=== PATIENT | female | born 1950 | race African-American/Black ===

== ENCOUNTER → 2016-06-04 | Outpatient (CLI) | payer MEDICARE, BC | LOC: WI 08:00 | PROVIDERS: ATTEND Internal Medicine | DX: Z12.31 Encounter for screening mammogram for malignant neoplasm of breast (principal); M81.0 Age-related osteoporosis without current pathological fracture | CPT/HCPCS: 77067; G0202 ==

== ENCOUNTER 2016-08-24 01:34 | Emergency (ER) | payer MEDICARE, BC ==
[2016-08-24] MEDS ORDERED: TRAMADOL HCL 50 MG TABLET PO ONE (03:42)
--- NOTE | 2016-08-24 03:45 | ER Document Report ---
ED General - General Chief Complaint: Leg Pain Stated Complaint: LEFT LEG PAIN Time Seen by Provider: 08/24/16 03:30 Notes: It is a 66-year-old female presents with complaint of pain over left norwood. She says that she has had her leg several times. She does say she twisted her knee and had some pain in her knee but this is improving. She says she then hit her left norwood she has had worsening pain over her left norwood. She does have hypertension. She does take her medications. She is on lisinopril and hydrochlorothiazide. She says whenever she has pain or comes to the doctor her blood pressure goes very high and this is not uncommon for her. She denies any chest pain or shortness of breath. She denies history of DVT. She does admit that she does have some pain behind her knee which is fairly new. No oher complaints at this time. TRAVEL OUTSIDE OF THE [place] IN LAST 30 DAYS: No - Related Data Allergies/Adverse Reactions: acesulfame [Acesulfame] Allergy (Severe, Verified 05/15/15 15:34) rapid heartbeat, extreme high blood pressure caffeine [Caffeine] Allergy (Severe, Verified 05/15/15 15:29) extreme high blood pressure, rapid heartbeat Penicillins Allergy (Severe, Verified 05/15/15 15:20) high fever, blister at injection site soy [Soy] Allergy (Severe, Verified 05/15/15 15:29) extreme high blood pressure, rapid heart rate Sulfa (Sulfonamide Antibiotics) Allergy (Severe, Verified 05/15/15 15:20) extreme high blood pressure, rapid heartbeat Past Medical History - Social History Smoking Status: Never Smoker Frequency of alcohol use: None Drug Abuse: None Family History: Reviewed & Not Pertinent Patient has suicidal ideation: No Patient has homicidal ideation: No - Past Medical History Cardiac Medical History: Reports: Hx Atrial Fibrillation, Hx Hypertension Denies: Hx Coronary Artery Disease, Hx Heart Attack Pulmonary Medical History: Denies: Hx Asthma, Hx Bronchitis, Hx COPD, Hx Pneumonia Neurological Medical History: Denies: Hx Cerebrovascular Accident, Hx Seizures Endocrine Medical History: Reports: Hx Diabetes Mellitus Type 2 Renal/ Medical History: Denies: Hx Peritoneal Dialysis Musculoskeltal Medical History: Denies Hx Arthritis Past Surgical History: Reports: Hx Hysterectomy, Hx Orthopedic Surgery - Immunizations Hx Diphtheria, Pertussis, Tetanus Vaccination: Yes - feb 2015 Hx Pneumococcal Vaccination: 02/14/15 Review of Systems - Review of Systems Notes: My Normal Review Basic REVIEW OF SYSTEMS: CONSTITUTIONAL : Denies fever, chills, or sweats. Denies recent illness. CARDIOVASCULAR: Denies chest pain. RESPIRATORY: Denies cough, cold, or chest congestion. Denies shortness of breath, difficulty breathing, or wheezing. MUSCULOSKELETAL: Left leg pain. SKIN: Denies rash or skin lesions. NEUROLOGICAL: Denies altered mental status or loss of consciousness. Denies headache. Denies weakness or paralysis or loss of use of either side. Denies problems with gait or speech. Denies sensory or motor loss. ALL OTHER SYSTEMS REVIEWED AND NEGATIVE. Physical Exam - Vital signs Vitals: Temp Pulse Resp BP Pulse Ox 98.1 F 87 18 215/104 H 98 08/24/16 01:57 08/24/16 01:57 08/24/16 01:57 08/24/16 01:57 08/24/16 01:57 - Notes Notes: General Appearance: Well nourished, alert, cooperative, no acute distress, mild obvious discomfort. Vitals: reviewed, See vital signs table. Eyes: PERRL, EOMI, Conjuctiva clear Extremities: strength 5/5 in all extremities, good pulses in all extremities, patient over the anterior left norwood. Pain of the dorsum of the left foot. No significant swelling. Some pain to palpation in the popliteal region behind the left knee., no edema. Skin: warm, dry, appropriate color, no rash Neuro: speech clear, oriented x 3, normal affect, responds appropriately to questions. Course - Re-evaluation Re-evalutation: 08/24/16 06:23 The [place] did give the patient good pain relief. I will write her prescription for this. I did inform her to only take this if her pain is severe and not responding to other forms of [id number] pain control. At this time we are waiting for her ultrasound be performed. If it is negative she will be discharged home with pain control. If it is positive then she will most likely be placed on anticoagulation. Patient has been checked out to Dr. Wagner who will follow up on the results of her ultrasound. Dictation of this chart was performed using voice recognition software; therefore, there may be some unintended grammatical errors. - Vital Signs Vital signs: Temp Pulse Resp BP Pulse Ox 98.1 F 87 20 139/69 H 98 08/24/16 01:57 08/24/16 01:57 08/24/16 06:01 08/24/16 06:01 08/24/16 06:01 Discharge - Discharge Clinical Impression: Leg pain Qualifiers: Laterality: left Qualified Code(s): M79.605 - Pain in left leg Hypertension Qualifiers: Hypertension type: unspecified Qualified Code(s): I10 - Essential (primary) hypertension Instructions: Oral Narcotic Medication ([facility]) Additional Instructions: Please follow up with your doctor for close reevaluation. Please return to the ER immediately if you have worsening pain, fevers, or feel unwell. Prescriptions: Hydrocodone/Acetaminophen [[place] 5-325 mg Tablet] 1 tab PO Q6 PRN #14 tablet PRN Reason: Referrals: RC RIOS MD [Primary Care Provider] - Follow up in 3-5 days
--- NOTE | 2016-08-24 04:50 | RADIOLOGY REPORT (SQ) ---
EXAM DESCRIPTION: TIBIA FIBULA LEFT COMPLETED DATE/TIME: 08/24/2016 4:18 am REASON FOR STUDY: trauma COMPARISON: None. NUMBER OF VIEWS: Two views. TECHNIQUE: Two radiographic images acquired of the left tibia and fibula to include the knee and ank le in at least one projection. LIMITATIONS: None. FINDINGS: MINERALIZATION: Normal. BONES: No acute fracture or dislocation. No worrisome bone lesions. Moderate calcaneal enthesophyte s. [id number] osteoarthritis of the left knee. Small likely fragmented osteophytes of the med ial knee joint, partially imaged. SOFT TISSUES: Moderate soft tissue swelling of the left ankle. Atherosclerosis. OTHER: No other significant finding. IMPRESSION: No acute findings. Mild-moderate osteoarthritis. TECHNICAL DOCUMENTATION: JOB ID: [id number] [employer]- All Rights Reserved
--- NOTE | 2016-08-24 04:52 | RADIOLOGY REPORT (SQ) ---
EXAM DESCRIPTION: FOOT LEFT COMPLETE COMPLETED DATE/TIME: 08/24/2016 4:18 am REASON FOR STUDY: trauma COMPARISON: None. NUMBER OF VIEWS: Three views. TECHNIQUE: AP, lateral and oblique radiographic images acquired of the left foot. LIMITATIONS: None. FINDINGS: MINERALIZATION: Moderate bony demineralization. BONES: No acute fracture or dislocation. No worrisome bone lesions. Moderate calcaneal enthesophyte s. JOINTS: No effusions. SOFT TISSUES: Moderate swelling. No foreign body. Atherosclerosis. OTHER: No other significant finding. IMPRESSION: NO RADIOGRAPHIC EVIDENCE OF ACUTE INJURY. TECHNICAL DOCUMENTATION: JOB ID: [id number] [employer]- All Rights Reserved
[2016-08-24] MEDS ORDERED: HYDROCODONE/ACETAMINOPHEN 5-325 MG TABLET PO ONE ×2 (04:54→09:10)
--- NOTE | 2016-08-24 08:57 | XCELERA REPORT ---
[address] [address] Lower Extremity Venous Evaluation Name: ED FIGUEROA Age: 66 yrs Gender: Female : 1950 Patient Status: Emergency Patient Location: ER Study Date: 08/24/2016 07:54 AM Procedure: Color flow and duplex imaging of the veins of the left lower extremity as well as the right Common Femoral vein. Reason For Study: left leg Ordering Physician: ADALBERTO CARNEY Performed By: Archana Acevedo Right Sided Venous Evaluation The right common femoral vein is fully compressible. Spontaneous and phasic flow is present in the right common femoral vein. Left Sided Venous Evaluation Normal vessel filling wall to wall, compression and augmentation as well as Colour flow down to the infrageniculate veins. Interpretation Summary No duplex evidence of DVT or obstruction in the left lower extremity nor in the right Common Femoral vein. : ADALBERTO CARNEY > Diomedes Taylor
[2016-08-24 09:00] VITALS: BP 160/88
== END 2016-08-24 09:18 | disposition home or self-care (01) ==
LOC: ER 01:34
DX: M79.605 Pain in left leg (principal); I10 Essential (primary) hypertension; E11.9 Type 2 diabetes mellitus without complications; I48.91 Unspecified atrial fibrillation; Z88.2 Allergy status to sulfonamides; Z88.0 Allergy status to penicillin; Z90.710 Acquired absence of both cervix and uterus
CPT/HCPCS: 99284; 93971 ×2; 73630; 73590; A9270 ×2

== ENCOUNTER → 2017-06-24 | Outpatient (CLI) | payer MEDICARE, BC ==
--- NOTE | 2017-06-24 09:38 | WOMENS IMAGING REPORT ---
EXAM DESCRIPTION: BONE DENSITY HIP/SPINE COMPLETED DATE/TIME: 06/24/2017 9:15 am REASON FOR STUDY: OSTEOPOROSIS M81.0 AGE-RELATED OSTEOPOROSIS W/O CURRENT PATHOLOGICAL FRAC Z12.31 ENCNTR SCREEN MAMMOGRAM FOR MALIGNANT NEOPLASM OF [place] COMPARISON: 04/08/2015 TECHNIQUE: Dual-Energy X-ray Absorptiometry (DEXA) of the AP Spine and Hip. LIMITATIONS: None. FINDINGS: LUMBAR SPINE: The bone mineral density (BMD) measured from L1-L4 in the AP projection correlates with a T-score of 1.6, which is normal as defined by the World Health Organization. HIP: The bone mineral density (BMD) measured in the left hip correlates with a T-score of 0.2, previously 1.1, which is normal as defined by the World Health Organization. IMPRESSION: 1. LUMBAR SPINE: NORMAL. 2. HIP: NORMAL. COMMENT: The World Health Organization defines low BMD as follows: T-score: Normal: Greater than -1.0 Osteopenia: Between -1.0 and -2.5 Osteoporosis: Less than -2.5 without fractures Established osteoporosis: Less than -2.5 with fractures In general, you may wish to consider: Diagnosis Treatment Follow-up DEXA Normal BMD Prevention 2-3 years Osteopenia Prevention/Therapy 1-2 years Osteoporosis Therapy Yearly TECHNICAL DOCUMENTATION: JOB ID: [id number]- All Rights Reserved Reading location - IP/workstation name: Unknown
--- NOTE | 2017-06-24 10:09 | WOMENS IMAGING REPORT ---
EXAM DESCRIPTION: 3D SCREENING MAMMO BILAT COMPLETED DATE/TIME: 06/24/2017 9:15 am REASON FOR STUDY: SCREENING MAMMO M81.0 AGE-RELATED OSTEOPOROSIS W/O CURRENT PATHOLOGICAL FRAC Z12. 31 ENCNTR SCREEN MAMMOGRAM FOR MALIGNANT NEOPLASM OF [place] COMPARISON: 2015, 2016 TECHNIQUE: Standard craniocaudal and mediolateral oblique views of each breast recorded using digita l acquisition and breast tomosynthesis. LIMITATIONS: None. FINDINGS: No masses, calcifications or architectural distortion. No areas of suspicion. Read with the assistance of CAD. .[facility] - R2 Cenova Version 1.3 .[facility] - R2 Cenova Version 1.3 .[facility] - R2 Cenova Version 2.4 .[facility] - R2 Cenova Version 2.4 .[facility] - R2 [employer] Senior Manager Version 9.2 IMPRESSION: NORMAL MAMMOGRAM. BIRADS 1. BREAST DENSITY: b. There are scattered areas of fibroglandular density. BIRAD: 1 NEGATIVE RECOMMENDATION: ROUTINE SCREENING COMMENT: The patient has been notified of the results by letter per SA requirements. Additional no tification policies are in place for contacting patient with suspicious or incomplete findings. Quality ID #225: The [employer] recommends an annual screening mammogram for women aged 40 years or over. This facility utilizes a reminder system to ensure that all patients receive reminder letters, and/or direct phone calls for appointments. This includes reminders for routine scr eening mammograms, diagnostic mammograms, or other Breast Imaging Interventions when appropriate. Th is patient will be placed in the appropriate reminder system. The [employer] (ACR) has developed recommendations for screening MRI of the breast s in certain patient populations, to be used in conjunction with mammography. Breast MRI surveillanc e may be appropriate for women with more than 20% lifetime risk of developing breast cancer as deter mined by genetic testing, significant family history of the disease, or history of mantle radiation f or Hodgkins Disease. ACR Practice Guidelines 2008. DBT Technology DBT is a type of tomographic mammography. With conventional mammography, overlapping breast tissue ma y make lesions difficult to detect, even with good compression. DBT uses an x-ray tube that rotates a round the breast, taking images at different angles. These images are then combined to create thin sl ices of the breast that the radiologist can view as a 3D reconstruction. The U[employer] unit can perform full-field digital mammograms (2D imaging); or DBT (3D imaging); or both, in a combination mode that quickly performs both the mammogram and the tomosynthesis scan while the breast is still compressed. PQRS 6045F: Fluoroscopic imaging is not utilized for breast tomosynthesis. TECHNICAL DOCUMENTATION: FINDING NUMBER: (1) ASSESSMENT: (1) JOB ID: [id number] [employer]- All Rights Reserved Reading location - IP/workstation name: Unknown
== END ==
LOC: WI 08:04
PROVIDERS: ATTEND Internal Medicine
DX: Z12.31 Encounter for screening mammogram for malignant neoplasm of breast (principal); M81.0 Age-related osteoporosis without current pathological fracture
CPT/HCPCS: 77063; 77067; 77080

== ENCOUNTER → 2018-07-24 | Outpatient (CLI) | payer MEDICARE, BC ==
--- NOTE | 2018-07-24 12:21 | WOMENS IMAGING REPORT ---
EXAM DESCRIPTION: 3D SCREENING MAMMO BILAT COMPLETED DATE/TIME: 07/24/2018 9:48 am REASON FOR STUDY: Z12.31 ROUTINE 3D BILATERAL SCREENING Z12.31 ENCNTR SCREEN MAMMOGRAM FOR MALIGNAN T NEOPLASM OF [place] COMPARISON: 06/24/2017 and 06/04/2016. EXAM PARAMETERS: Views: Standard craniocaudal and mediolateral oblique views of each breast recorded using digital acquisition and breast tomosynthesis. Read with the assistance of CAD. .[facility] - [place] [employer] Version 9.2 LIMITATIONS: None. FINDINGS: No suspicious masses, suspicious calcifications or architectural distortion. No areas of c oncern. IMPRESSION: NEGATIVE MAMMOGRAM. BIRADS 1. BREAST DENSITY: b. There are scattered areas of fibroglandular density. BIRAD: ASSESSMENT: 1 NEGATIVE RECOMMENDATION: ROUTINE SCREENING COMMENT: The patient has been notified of the results by letter per MQSA requirements. Additional no tification policies are in place for contacting patient with suspicious or incomplete findings. Quality ID #225: The [employer] recommends an annual screening mammogram for women aged 40 years or over. This facility utilizes a reminder system to ensure that all patients receive reminder letters, and/or direct phone calls for appointments. This includes reminders for routine scr eening mammograms, diagnostic mammograms, or other Breast Imaging Interventions when appropriate. Th is patient will be placed in the appropriate reminder system. TECHNICAL DOCUMENTATION: FINDING NUMBER: (1) ASSESSMENT: (1) JOB ID: [id number] [employer]- All Rights Reserved Reading location - IP/workstation name: [email or web address]
== END ==
LOC: WI 09:23
PROVIDERS: ATTEND Internal Medicine
DX: Z12.31 Encounter for screening mammogram for malignant neoplasm of breast (principal)
CPT/HCPCS: 77063; 77067

== ENCOUNTER 2019-06-20 11:54 | Inpatient (IN) | payer MEDICARE, BC ==
--- NOTE | 2019-06-20 12:10 | ER Document Report ---
ED Medical Screen (RME) - General Chief Complaint: Palpitations Stated Complaint: FAST HEART RATE Time Seen by Provider: 06/20/19 12:04 Primary Care Provider: WALDO TURNER MD [Primary Care Provider] - Follow up as needed Information source: Patient Notes: Patient presents complaining of palpitations that started about an hour prior to arrival. Patient denies any cough or chest pain. Patient denies any history of abnormal heart rhythm. Patient does report occasional shortness of breath. Patient states she had gas pain to the epigastric area and took some gas pills this morning. Patient has been treated for UTI over the past 10 days and was changed to Macrobid and Flagyl yesterday. Patient does have a history of diabetes and hypertension. I have greeted and performed a rapid initial assessment of this patient. A comprehensive ED assessment and evaluation of the patient, analysis of test results and completion of the medical decision making process will be conducted by additional ED providers. TRAVEL OUTSIDE OF THE [place] IN LAST 30 DAYS: No - Related Data Allergies/Adverse Reactions: acesulfame [Acesulfame] Allergy (Severe, Verified 05/15/15 15:34) rapid heartbeat, extreme high blood pressure caffeine [Caffeine] Allergy (Severe, Verified 05/15/15 15:29) extreme high blood pressure, rapid heartbeat Penicillins Allergy (Severe, Verified 05/15/15 15:20) high fever, blister at injection site soy [Soy] Allergy (Severe, Verified 05/15/15 15:29) extreme high blood pressure, rapid heart rate Sulfa (Sulfonamide Antibiotics) Allergy (Severe, Verified 05/15/15 15:20) extreme high blood pressure, rapid heartbeat ciprofloxacin [From Cipro] Allergy (Verified 06/20/19 12:08) Past Medical History - Past Medical History Cardiac Medical History: Reports: Hx Atrial Fibrillation, Hx Hypertension Denies: Hx Coronary Artery Disease, Hx Heart Attack Pulmonary Medical History: Denies: Hx Asthma, Hx Bronchitis, Hx COPD, Hx Pneumonia Neurological Medical History: Denies: Hx Cerebrovascular Accident, Hx Seizures Endocrine Medical History: Reports: Hx Diabetes Mellitus Type 2 Renal/ Medical History: Denies: Hx Peritoneal Dialysis Musculoskeltal Medical History: Denies Hx Arthritis Past Surgical History: Reports: Hx Hysterectomy, Hx Orthopedic Surgery - Immunizations Hx Diphtheria, Pertussis, Tetanus Vaccination: Yes - feb 2015 Physical Exam - Respiratory Respiratory status: No respiratory distress. No: Labored, Tachypnea - Cardiovascular Rhythm: Irregularly irregular Heart sounds: S1 appreciated, S2 appreciated Doctor's Discharge - Discharge Referrals: WALDO TURNER MD [Primary Care Provider] - Follow up as needed
--- NOTE | 2019-06-20 12:11 | EKG REPORT ---
SEVERITY:- ABNORMAL ECG - ATRIAL FIBRILLATION WITH RAPID V-RATE REPOLARIZATION ABNORMALITY, PROB RATE RELATED : Confirmed by: Donta Carrasco MD 20-Jun-2019 12:10:08
[2019-06-20] MEDS ORDERED: DILTIAZEM HCL INJ 25 MG/5 ML VIAL IV ONE ×2 (12:31→13:26)
[2019-06-20 12:45] LABS: ABSOLUTE BASOPHILS # (AUTO) 0.1 10^3/uL (0.0-0.2); ABSOLUTE EOSINOPHILS # (AUTO) 0.1 10^3/uL (0.0-0.6); ABSOLUTE LYMPHOCYTES (AUTO) 1.9 10^3/uL (0.5-4.7); ABSOLUTE NEUT (AUTO) 4.9 10^3/uL (1.7-8.2); EOSINOPHILS % (AUTO) 1.3 % (0-6); HEMATOCRIT 32.4 % (36.0-47.0); HEMOGLOBIN 10.5 g/dL (12.0-15.5); LYMPHOCYTES % (AUTO) 23.4 % (13-45); MEAN CORPUSCULAR HEMOGLOBIN 25.7 pg (27.0-33.4); MEAN CORPUSCULAR HGB CONC 32.5 g/dL (32.0-36.0); MEAN CORPUSCULAR VOLUME 79 fl (80-97); MONOCYTES % (AUTO) 12.6 % (3-13); PLATELET COUNT 343 10^3/uL (150-450); RED CELL DISTRIBUTION WIDTH 17.1 % (11.5-14.0); SEGMENTED NEUTROPHILS % (AUTO) 61.7 % (42-78); TOTAL CELLS COUNTED % (AUTO) 100 %; WHITE BLOOD COUNT 7.9 10^3/uL (4.0-10.5)
[2019-06-20 12:47] LABS: APPEARANCE,URINE CLEAR; BILIRUBIN,URINE NEGATIVE (NEGATIVE); COLOR,URINE STRAW; GLUCOSE, URINE NEGATIVE (NEGATIVE); KETONES,URINE TRACE mg/dL (NEGATIVE); LEUKOCYTE ESTERASE,URINE MODERATE (NEGATIVE); NITRITE,URINE NEGATIVE (NEGATIVE); PROTEIN,URINE 30 mg/dL (NEGATIVE); URINE SPECIFIC GRAVITY 1.004; UROBILINOGEN,URINE NEGATIVE mg/dL (<2.0)
[2019-06-20] MEDS: DILTIAZEM HCL/D5W 125 MG/125 ML RTUINJ IV PRN ×2 (12:47→21:23)
--- NOTE | 2019-06-20 12:51 | RADIOLOGY REPORT (SQ) ---
EXAM DESCRIPTION: CHEST SINGLE VIEW IMAGES COMPLETED DATE/TIME: 06/20/2019 12:39 pm REASON FOR STUDY: palpitations COMPARISON: 04/08/2015 EXAM PARAMETERS: NUMBER OF VIEWS: One view. TECHNIQUE: Single frontal radiographic view of the chest acquired. RADIATION DOSE: NA LIMITATIONS: None. FINDINGS: LUNGS AND PLEURA: No opacities, masses or pneumothorax. No pleural effusion. MEDIASTINUM AND HILAR STRUCTURES: No masses. Contour normal. HEART AND VASCULAR STRUCTURES: Heart normal in size. Normal vasculature. BONES: No acute findings. Glenohumeral degenerative change bilaterally. HARDWARE: None in the chest. OTHER: No other significant finding. IMPRESSION: No evidence of acute cardiopulmonary process. TECHNICAL DOCUMENTATION: JOB ID: [id number] [employer]- All Rights Reserved Reading location - IP/workstation name: [email or web address]
[2019-06-20 13:07] LABS: ALKALINE PHOSPHATASE 100 U/L (38-126); ANION GAP 13 (5-19); ASPARTATE AMINO TRANSFERASE 36 U/L (14-36); BILIRUBIN,DIRECT 0.1 mg/dL (0.0-0.4); BILIRUBIN,TOTAL 0.4 mg/dL (0.2-1.3); BLOOD UREA NITROGEN 15 mg/dL (7-20); CALCIUM 9.2 mg/dL (8.4-10.2); CARBON DIOXIDE 23 mmol/L (22-30); CHLORIDE 99 mmol/L (98-107); GLUCOSE 146 mg/dL (75-110); POTASSIUM 4.1 mmol/L (3.6-5.0)
[2019-06-20 13:08] LABS: INTERNATIONAL RATION (INR) 1.06; PARTIAL THROMBOPLASTIN TIME 30.6 SEC (23.5-35.8); PROTHROMBIN TIME 13.8 SEC (11.4-15.4)
[2019-06-20 13:18] LABS: NT PRO BNP 370 pg/mL (<125)
[2019-06-20 13:23] LABS: TROPONIN I < 0.012 ng/mL
[2019-06-20] MEDS ORDERED: METOPROLOL TARTRATE PF/INJ 5 MG/5 ML SDV IV ONE ×3 (14:02→20:21)
[2019-06-20] MEDS: MAGNESIUM SULFATE/D5W 1 GM/100 ML RTUPB IV SCH ×2 (14:44→17:04)
[2019-06-20] MEDS ORDERED: ACETAMINOPHEN 325 MG TABLET PO PRN (17:23)
[2019-06-20] MEDS ORDERED: ONDANSETRON 4 MG TAB.RAPDIS PO PRN (17:23)
[2019-06-20] MEDS ORDERED: ONDANSETRON HCL INJ/PF 4 MG/2 ML SDV IV PRN (17:23)
[2019-06-20] MEDS ORDERED: HEPARIN SOD (PORCINE) 1,000 UNIT/ML 10 ML VIAL IV ONE (17:25)
[2019-06-20] MEDS ORDERED: HEPARIN SODIUM,PORCINE/D5W 25,000 UNIT/250 ML RTUINJ IV PRN (17:25)
[2019-06-20] MEDS ORDERED: MAGNESIUM SULFATE/D5W 1 GM/100 ML RTUPB IV ONE (17:35)
[2019-06-20] MEDS ORDERED: DIGOXIN INJ 0.5 MG/2 ML AMPULE IV ONE (17:35)
[2019-06-20 18:16] LABS: URINE AMPHETAMINES SCREEN NEGATIVE; URINE BARBITURATES SCREEN NEGATIVE; URINE BENZODIAZEPINES SCREEN NEGATIVE; URINE COCAINE SCREEN NEGATIVE; URINE MARIJUANA (THC) SCREEN NEGATIVE; URINE METHADONE SCREEN NEGATIVE; URINE PHENCYCLIDINE SCREEN NEGATIVE
--- NOTE | 2019-06-20 18:46 | PDOC H&P ---
History of Present Illness Admission Date/PCP: RC RIOS MD History of Present Illness: ED FIGUEROA is a 69 year old female with past medical history significant for HTN, T2 DM, multiple antibiotic allergies who presented with 1 day history of progressive palpitations and shortness of breath which occurred approximately 11 AM today. Patient states she has had episodes of heart racing in the past when she ate soy or when she was given an antibiotic she is allergic to. On arrival to ED, patient was noted to have A. fib on EKG with rates in the 140s to 150s. She was given multiple boluses of diltiazem and placed on diltiazem drip unfortunately her heart rate remained in the mid to upper 130s. Dr. Baltazar was consulted and he recommended continuing to correct the patient's magnesium which was low and also adding a dose of digoxin. On my exam, patient seems to have actually converted from A. fib to SVT. Blood pressure stable in the 130s over 100s. Patient states she recently completed a 10-day course of antibiotics for supposed UTI prescribed by her PCP. This was prompted by patient complaining of brownish/grayish vaginal discharge which came on suddenly in the last week of May. The first antibiotic course did not improve things and patient was given a second antibiotic course which she started 1 day prior to admission and this included Macrobid and Flagyl. She has not noted any improvement on this. Patient has had a hysterectomy for fibroids in her 20s however she also states she had a transvaginal ultrasound recently that showed an unspecified pelvic mass. She was scheduled for a CT abdomen/pelvis with and without contrast next month however we can get this done here and hopefully get some answers as to what the etiology of this pelvic masses. Patient managed to stepdown unit with telemetry. Past Medical History Cardiac Medical History: Reports: Atrial Fibrillation, Hypertension Denies: Coronary Artery Disease, Myocardial Infarction Pulmonary Medical History: Denies: Asthma, Bronchitis, Chronic Obstructive Pulmonary Disease (COPD), Pneumonia Neurological Medical History: Denies: Seizures Endocrine Medical History: Reports: Diabetes Mellitus Type 2 Musculoskeltal Medical History: Denies: Arthritis Hematology: Reports: Anemia - hx Past Surgical History Past Surgical History: Reports: Hysterectomy, Orthopedic Surgery Social History Information Source: Patient, Emergency Med Personnel, [facility] Records Lives with: Family, Spouse/Significant other Smoking Status: Never Smoker Frequency of Alcohol Use: None Hx Recreational Drug Use: No Hx Prescription Drug Abuse: No - Advance Directive Resuscitation Status: Full Code Surrogate healthcare decision maker:: Family History Family History: Reviewed & Not Pertinent Parental Family History Reviewed: Yes Children Family History Reviewed: Yes Sibling(s) Family History Reviewed.: Yes Medication/Allergy Home Medications: Aspirin [Ecotrin 81 mg EC Tablet] 81 mg PO DAILY 05/15/15 Glyburide [Diabeta] 2.5 mg PO ASDIR 05/15/15 Hydrochlorothiazide 25 mg PO DAILY 05/15/15 Lisinopril 10 mg PO DAILY 05/15/15 Metformin HCl 1,000 mg PO DAILY 05/15/15 Hydrocodone/Acetaminophen [[place] 5-325 mg Tablet] 1 tab PO Q6 PRN #14 tablet 08/24/16 Allergies/Adverse Reactions: acesulfame [Acesulfame] Allergy (Severe, Verified 05/15/15 15:34) rapid heartbeat, extreme high blood pressure caffeine [Caffeine] Allergy (Severe, Verified 05/15/15 15:29) extreme high blood pressure, rapid heartbeat Penicillins Allergy (Severe, Verified 05/15/15 15:20) high fever, blister at injection site soy [Soy] Allergy (Severe, Verified 05/15/15 15:29) extreme high blood pressure, rapid heart rate Sulfa (Sulfonamide Antibiotics) Allergy (Severe, Verified 05/15/15 15:20) extreme high blood pressure, rapid heartbeat ciprofloxacin [From Cipro] Allergy (Verified 06/20/19 12:08) Review of Systems All systems: reviewed and no additional remarkable complaints except as stated - Review of systems per HPI, otherwise negative Physical Exam Vital Signs: Temp Pulse Resp BP Pulse Ox 98.3 F 146 H 20 105/86 H 100 06/20/19 14:20 06/20/19 12:11 06/20/19 18:01 06/20/19 18:01 06/20/19 18:01 Intake & Output 06/19/19 06/20/19 06/21/19 06:59 06:59 06:59 Intake Total 104 Balance 104 Weight 131.8 kg General appearance: PRESENT: no acute distress, morbidly obese Head exam: PRESENT: atraumatic, normocephalic Eye exam: PRESENT: conjunctiva pink Mouth exam: PRESENT: moist Respiratory exam: PRESENT: clear to auscultation keren. ABSENT: rales, rhonchi, wheezes Cardiovascular exam: PRESENT: +S1, +S2, tachycardia. ABSENT: diastolic murmur, rubs, systolic murmur GI/Abdominal exam: PRESENT: normal bowel sounds, soft. ABSENT: distended, guarding, mass, organolmegaly, rebound, tenderness Neurological exam: PRESENT: alert, awake, oriented to person, oriented to place, oriented to time, oriented to situation Psychiatric exam: PRESENT: appropriate affect, normal mood Skin exam: PRESENT: dry, intact, warm Results Laboratory Results: 06/20/19 12:27 06/20/19 12:27 06/20/19 06/20/19 06/20/19 12:27 12:27 12:27 WBC 7.9 RBC 4.10 Hgb 10.5 L Hct 32.4 L MCV 79 L MCH 25.7 L MCHC 32.5 RDW 17.1 H Plt Count 343 Seg Neutrophils % 61.7 Sodium 135.3 L Potassium 4.1 Chloride 99 Carbon Dioxide 23 Anion Gap 13 BUN 15 Creatinine 0.91 Est GFR ( Amer) > 60 Glucose 146 H Calcium 9.2 Magnesium 1.4 L Total Bilirubin 0.4 AST 36 Alkaline Phosphatase 100 Total Protein 8.0 Albumin 4.0 Lipase 116.2 TSH 1.75 Urine Color Urine Appearance Urine pH Ur Specific [place] Urine Protein Urine Glucose (UA) Urine Ketones Urine Blood Urine Nitrite Ur Leukocyte Esterase Urine WBC (Auto) Urine RBC (Auto) 06/20/19 12:27 WBC RBC Hgb Hct MCV MCH MCHC RDW Plt Count Seg Neutrophils % Sodium Potassium Chloride Carbon Dioxide Anion Gap BUN Creatinine Est GFR ( Amer) Glucose Calcium Magnesium Total Bilirubin AST Alkaline Phosphatase Total Protein Albumin Lipase TSH Urine Color STRAW Urine Appearance CLEAR Urine pH 6.0 Ur Specific [place] 1.004 Urine Protein 30 H Urine Glucose (UA) NEGATIVE Urine Ketones TRACE H Urine Blood SMALL H Urine Nitrite NEGATIVE Ur Leukocyte Esterase MODERATE H Urine WBC (Auto) 5 Urine RBC (Auto) 0 06/20/19 12:27 Troponin I < 0.012 NT-Pro-B Natriuret Pep 370 H Impressions: Chest X-Ray 06/20/19 12:08 IMPRESSION: No evidence of acute cardiopulmonary process. Assessment and Plan - Diagnosis (1) Atrial fibrillation with RVR Is this a current diagnosis for this admission?: Yes Plan: Seen on EKG on admission Telemetry later showed SVT Magnesium notably low, repleting IV Etiology is unclear: Possibly due to PE versus UTI/pelvic infection versus obstructive sleep apnea IV heparin drip started Diltiazem drip with multiple boluses given on admission to minimal effect, drip rate up to 15 mg/h Digoxin given x1 dose in ED along with Lopressor, temporary heart rate dropped to low 100s with rebound to 130s thereafter Echocardiogram Cardiology consulted (2) Pelvic mass in female Is this a current diagnosis for this admission?: Yes Plan: Seen on transvaginal ultrasound ordered by her PCP per patient CT abdomen/pelvis with contrast Suspect malignancy (3) Vaginal discharge, bloody Is this a current diagnosis for this admission?: Yes Plan: UA somewhat equivocal but do not suspect UTI Treat bacterial vaginal infection with Flagyl changed to IV while inpatient here Has been on Macrobid/Flagyl for 1 day prior to admission, no improvement noted per patient In the last week of May she started a 10-day course of nitrofurantoin which had no effect per patient (4) T2DM (type 2 diabetes mellitus) Qualifiers: Diabetes mellitus exterminator termite insulin use: without jail use Diabetes me llitus complication status: without complication Qualified Code(s): E11.9 - Type 2 diabetes mellitus without complications Is this a current diagnosis for this admission?: Yes Plan: Hold metformin and glyburide Accu-Cheks, corrective insulin A1c (5) HTN (hypertension) Is this a current diagnosis for this admission?: Yes Plan: Hold home BP meds while we are titrating heart rate meds which can also drop blood pressure (6) Drug allergy, antibiotic Is this a current diagnosis for this admission?: Yes Plan: Allergic to penicillin, sulfa drugs, ciprofloxacin all with the reaction of hives and pruritus - Time Time Spent with patient: 35 or more minutes Medications reviewed and adjusted accordingly: Yes - Inpatient Certification Based on my medical assessment, after consideration of the patient's comorbidities, presenting symptoms, or acuity I expect that the services needed warrant INPATIENT care.: Yes I certify that my determination is in accordance with my understanding of Medicare's requirements for reasonable and necessary INPATIENT services [42 CFR 412.3e].: Yes Medical Necessity: Significant Comorbidiites Make Outpatient Treatment Too Risky, Need Close Monitoring Due to Risk of Patient Decompensation, Need For Continuous Telemetry Monitoring, Risk of Complication if Not Cared For in H ospital, Risk of Diagnosis Which Will Require Inpatient Eval/Care/Monitoring
--- NOTE | 2019-06-20 18:47 | ADVANCED CARE ---
- Diagnosis (1) Atrial fibrillation with RVR Diagnosis Current: Yes (2) Pelvic mass in female Diagnosis Current: Yes (3) Vaginal discharge, bloody Diagnosis Current: Yes (4) T2DM (type 2 diabetes mellitus) Diagnosis Current: Yes (5) HTN (hypertension) Diagnosis Current: Yes (6) Drug allergy, antibiotic Diagnosis Current: Yes Attendance: Patient Resuscitation Status: Full Code Discussion: All aspects of code status discussed with patient/POA including cardioversion, chest compressions, and intubation and the patient/POA indicated they wish to be full. MPOA is designated as: Hugo Anderson Time Spent: 17 minutes
[2019-06-20 19:04] LABS: ABSOLUTE BASOPHILS # (AUTO) 0.1 10^3/uL (0.0-0.2); ABSOLUTE EOSINOPHILS # (AUTO) 0.1 10^3/uL (0.0-0.6); ABSOLUTE LYMPHOCYTES (AUTO) 1.9 10^3/uL (0.5-4.7); ABSOLUTE MONOCYTES (AUTO) 0.9 10^3/uL (0.1-1.4); ABSOLUTE NEUT (AUTO) 4.8 10^3/uL (1.7-8.2); BASOPHILS % (AUTO) 1.1 % (0-2); EOSINOPHILS % (AUTO) 1.2 % (0-6); HEMATOCRIT 31.5 % (36.0-47.0); HEMOGLOBIN 10.2 g/dL (12.0-15.5); LYMPHOCYTES % (AUTO) 24.6 % (13-45); MEAN CORPUSCULAR HEMOGLOBIN 25.8 pg (27.0-33.4); MEAN CORPUSCULAR HGB CONC 32.5 g/dL (32.0-36.0); MEAN CORPUSCULAR VOLUME 79 fl (80-97); MONOCYTES % (AUTO) 11.3 % (3-13); PLATELET COUNT 369 10^3/uL (150-450); RED BLOOD COUNT 3.97 10^6/uL (3.72-5.28); RED CELL DISTRIBUTION WIDTH 17.4 % (11.5-14.0); SEGMENTED NEUTROPHILS % (AUTO) 61.8 % (42-78); TOTAL CELLS COUNTED % (AUTO) 100 %; WHITE BLOOD COUNT 7.7 10^3/uL (4.0-10.5)
--- NOTE | 2019-06-20 19:09 | ER Document Report ---
Entered by CLINT PEOPLES SCRIBE 06/20/19 1233 Acting as scribe for:PRINCESS AGUILAR MD ED Cardiac - General Chief Complaint: Palpitations Stated Complaint: FAST HEART RATE Time Seen by Provider: 06/20/19 12:04 Information source: Patient Notes: This 69 year old female patient presents to the emergency department today with a fast heart rate and high blood pressure, which began this morning. Patient states she occasionally has a fast heart rate from gas that lasts for 5-10 minutes. Patient states she is not diagnosed with atrial fibrillation. Patient denies any chest pain, shortness of breath, or history of heart attacks. Patient states she is currently being treated for a urinary tract infection and is on her second round of antibiotics, which she started yesterday. TRAVEL OUTSIDE OF THE [place] IN LAST 30 DAYS: No - Related Data Allergies/Adverse Reactions: acesulfame [Acesulfame] Allergy (Severe, Verified 05/15/15 15:34) rapid heartbeat, extreme high blood pressure caffeine [Caffeine] Allergy (Severe, Verified 05/15/15 15:29) extreme high blood pressure, rapid heartbeat Penicillins Allergy (Severe, Verified 05/15/15 15:20) high fever, blister at injection site soy [Soy] Allergy (Severe, Verified 05/15/15 15:29) extreme high blood pressure, rapid heart rate Sulfa (Sulfonamide Antibiotics) Allergy (Severe, Verified 05/15/15 15:20) extreme high blood pressure, rapid heartbeat ciprofloxacin [From Cipro] Allergy (Verified 06/20/19 12:08) Past Medical History - General Information source: Patient - Social History Smoking Status: Never Smoker Cigarette use (# per day): No Frequency of alcohol use: None Lives with: Family Family History: Reviewed & Not Pertinent Patient has homicidal ideation: No - Past Medical History Cardiac Medical History: Reports: Hx Hypertension Endocrine Medical History: Reports: Hx Diabetes Mellitus Type 2 GI Medical History: Reports: Hx Diverticulitis Past Surgical History: Reports: Hx Hysterectomy, Hx Orthopedic Surgery - Immunizations Hx Diphtheria, Pertussis, Tetanus Vaccination: Yes - feb 2015 Hx Pneumococcal Vaccination: 02/14/15 Review of Systems - Review of Systems Constitutional: No symptoms reported EENT: No symptoms reported Cardiovascular: See HPI, Other - Fast heart rate.. denies: Chest pain Respiratory: See HPI. denies: Short of breath Gastrointestinal: No symptoms reported Genitourinary: No symptoms reported Female Genitourinary: No symptoms reported Musculoskeletal: No symptoms reported Skin: No symptoms reported Hematologic/Lymphatic: No symptoms reported Neurological/Psychological: No symptoms reported -: Yes All other systems reviewed and negative Physical Exam - Vital signs Vitals: Temp 98.4 F 06/20/19 12:07 - General General appearance: Appears well, Alert - HEENT Head: Normocephalic, Atraumatic Eyes: Normal Pupils: PERRL - Respiratory Respiratory status: No respiratory distress Chest status: Nontender Breath sounds: Normal Chest palpation: Normal - Cardiovascular Rhythm: Tachycardia Heart sounds: Normal auscultation Murmur: No - Abdominal Inspection: Obese Distension: No distension Bowel sounds: Normal Tenderness: Nontender - Extremities General upper extremity: Normal inspection. No: Edema General lower extremity: Normal inspection. No: Edema - Neurological Neuro grossly intact: Yes Cognition: Normal Orientation: AAOx4 - Psychological Associated symptoms: Normal affect, Normal mood - Skin Skin Temperature: Warm Skin Moisture: Dry Skin Color: Normal Course - Re-evaluation Re-evalutation: 06/20/19 17:43 Patient still has atrial flutter with a heart rate of 137. Hemodynamically stable with blood pressure 139/89 and a saturation of 99% patient is showing no signs of distress except knowing that she has A. fib. 06/20/19 19:[address] Baltazar, buffing turner and counter who suggested that we give patient another gram of magnesium and IV digoxin 0.25. And that he will consult on patient. - Vital Signs Vital signs: Temp Pulse Resp BP Pulse Ox 98.3 F 146 H 26 H 153/87 H 98 06/20/19 14:20 06/20/19 12:11 06/20/19 19:01 06/20/19 19:01 06/20/19 19:01 06/20/19 17:43 Vital signs as above chronic A. fib at this time with a heart rate of 137. - Laboratory Result Diagrams: 06/20/19 18:54 06/20/19 12:27 Laboratory results interpreted by me: 06/20/19 06/20/19 06/20/19 12:27 12:27 12:27 Hgb 10.5 L Hct 32.4 L MCV 79 L MCH 25.7 L RDW 17.1 H Sodium 135.3 L Glucose 146 H Magnesium 1.4 L NT-Pro-B Natriuret Pep 370 H Urine Protein Urine Ketones Urine Blood Ur Leukocyte Esterase 06/20/19 12:27 Hgb Hct MCV MCH RDW Sodium Glucose Magnesium NT-Pro-B Natriuret Pep Urine Protein 30 H Urine Ketones TRACE H Urine Blood SMALL H Ur Leukocyte Esterase MODERATE H Laboratory results shows a low magnesium 1.4 and evidence of a urinary tract infection with moderate leukocytes esterase. Patient is currently being treated for urinary tract infection. - Diagnostic Test Radiology reviewed: Image reviewed, Reports reviewed Radiology results interpreted by me: 06/20/19 17:44 Chest x-ray shows no acute process normal heart size. - EKG Interpretation by Me Additional EKG results interpreted by me: 06/20/19 17:44 Twelve-lead EKG shows atrial fibrillation with RVR with a vent without Dr. Shields is coming and he did tell me what floor bed he wanted I wanted to ventricular rate of 167. Repeat twelve-lead EKG shows atrial fibrillation with a ventricular rate of 112. Discharge - Discharge Clinical Impression: Atrial fibrillation with rapid ventricular response Condition: Serious Disposition: ADMITTED INPATIENT Admitting Provider: Priya (Hospitalist) Unit Admitted: IMCU I personally performed the services described in the documentation, reviewed and edited the documentation which was dictated to the scribe in my presence, and it accurately records my words and actions.
[2019-06-20 19:10] LABS: INTERNATIONAL RATION (INR) 1.16; PROTHROMBIN TIME 14.8 SEC (11.4-15.4)
[2019-06-20 19:29] LABS: ANION GAP 11 (5-19); BLOOD UREA NITROGEN 15 mg/dL (7-20); CALCIUM 8.9 mg/dL (8.4-10.2); CARBON DIOXIDE 24 mmol/L (22-30); CHLORIDE 100 mmol/L (98-107); GLUCOSE 160 mg/dL (75-110); PARTIAL THROMBOPLASTIN TIME 75.4 SEC (23.5-35.8); POTASSIUM 3.9 mmol/L (3.6-5.0)
[2019-06-20 19:40] LABS: FREE T4 (FREE THYROXINE) 1.64 ng/dL (0.78-2.19)
[2019-06-20 19:54] LABS: THYROID STIMULATING HORMONE 1.38 uIU/mL (0.47-4.68)
--- NOTE | 2019-06-20 19:55 | EKG REPORT ---
SEVERITY:- ABNORMAL ECG - ATRIAL FIBRILLATION, V-RATE 61-135 : Confirmed by: Donta Carrasco MD 20-Jun-2019 19:53:50
--- NOTE | 2019-06-20 21:08 | RADIOLOGY REPORT (SQ) ---
CLINICAL INDICATION: malignancy. . TECHNIQUE: CTA imaging of the chest. MIP angiographic reconstructions Contrast enhanced spiral axial CT images obtained through abdomen and pelvis with multiplanar reconstructions. This exam was performed according to our departmental dose-optimization program, which includes automated exposure control, adjustment of the mA and/or kV according to patient size and/or use of iterative reconstruction techniques. COMPARISON: None. CORRELATION: None. FINDINGS: Chest: Heterogeneous contrast bolus. Average Hounsfield unit measurement of 224. Artifact from venous opacification. The heart is prominent. No pericardial effusion. No bulky mediastinal adenopathy. Thyroid is heterogeneous No central pulmonary embolus. Small branch vessels not well seen. 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 No consolidation or edema. No effusion or pneumothorax. Mild chronic change. Detail obscured by motion. Abdomen: The liver is fatty infiltrated.. The gallbladder is physiologically distended without inflammatory change. The pancreas is unremarkable. The spleen is unremarkable. The adrenals are unremarkable. The kidneys appear grossly normal without evidence of urolithiasis or hydronephrosis. Fullness to the right collecting system and ureter. Imaging obtained in expiratory phase . Tiny fluid structure within the retroperitoneum left para-aortic infrarenal, unknown etiology 2.8 x 3.5 cm. 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 There is no evidence of free air. No free fluid. No bulky adenopathy. Abdominal aorta is calcified but nonaneurysmal. Pelvis: The bowel is nonobstructed. The bowel is unopacified with oral contrast. Pelvic contents definite diffuse inflammatory changes. The appendix is not seen. Diverticulosis of the colon. There are acute inflammatory changes perhaps representing acute uncomplicated diverticulitis. There is a large diverticulum arising from the sigmoid.. 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 IMPRESSION: Imaging is degraded by patient motion, with resultant artifact. The best possible images were obtained. No central pulmonary embolus. Chronic parenchymal lung change. No acute intrathoracic process. Inflammatory changes identified within the pelvis. There also appears to be acute uncomplicated diverticulitis of the sigmoid colon. 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
--- NOTE | 2019-06-20 21:43 | XCELERA REPORT ---
[address] [address] Transthoracic Echocardiogram Report Name: ED FIGUEROA Age: 69 yrs Gender: Female : 1950 Patient Status: Inpatient Patient Location: [place] [address]^A Study Date: 06/20/2019 07:14 PM Height: 69 in Weight: 290 lb BSA: 2.4 m2 Procedure: A two-dimensional transthoracic echocardiogram with color flow and Doppler was performed. The study was technically difficult with many images being suboptimal in quality. Reason For Study: CHF History: CHF. Ordering Physician: CHRISTINE LUCERO Performed By: Yadira River Interpretation Summary The left ventricle is normal in size. There is mild concentric left ventricular hypertrophy. LV EF is 60% Left ventricular systolic function is normal. Doppler measurements suggest impaired left ventricular relaxation, which is associated with grade I/IV or mild diastolic dysfunction By tissue dopplers. The left ventricular wall motion is normal. There is no thrombus. No defenite ASD ,VSD or PFO seen. The right ventricle is not well visualized secondary to technical limitations The right atrium is normal. The left atrial size is normal. There is no evidence of mitral valve prolapse. There is no vegetation seen on the mitral valve. There is no mitral valve stenosis. There is a trace amount of mitral regurgitation There is no aortic valvular vegetation. There is no aortic valve stenosis There is aortic sclerosis without aortic stenosis. There is no LVOT obstruction. No aortic regurgitation is present. There is no tricuspid stenosis. There is a trace amount of tricuspid regurgitation Tricuspid regurgitation jet envelope not well defined to measure RV systolic pressure accurately. There is no pulmonic valvular stenosis. The inferior vena cava appeared normal and decreased > 50% with respiration (RAP 5-10 mmHg) There is no pericardial effusion. MMode/2D Measurements & Calculations RVDd: 2.5 cm LVIDd: 4.6 cm FS: 27.5 % Ao root diam: 3.2 cm IVSd: 1.7 cm LVIDs: 3.3 cm EDV(Teich): 95.7 ml Ao root area: 8.0 cm2 LVPWd: 1.2 cm ESV(Teich): 44.6 ml LA dimension: 3.6 cm EF(Teich): 53.5 % Doppler Measurements & Calculations MV E max nayan: MV P1/2t max nayan: Ao V2 max: LV V1 max P.0 cm/sec 122.2 cm/sec 118.1 cm/sec 4.3 mmHg MV A max nayan: MV P1/2t: 32.7 msec Ao max PG: LV V1 max: 56.5 cm/sec MVA(P1/2t): 6.7 cm2 5.6 mmHg 104.1 cm/sec MV E/A: 1.6 MV dec slope: 1095 cm/sec2 MV dec time: 0.07 sec PA V2 max: MV P1/2t-pr_phl: 87.5 cm/sec 32.7 msec PA max P.1 mmHg Left Ventricle The left ventricle is normal in size. There is mild concentric left ventricular hypertrophy. LV EF is 60%. Left ventricular systolic function is normal. Doppler measurements suggest impaired left ventricular relaxation, which is associated with grade I/IV or mild diastolic dysfunction. By tissue dopplers. The left ventricular wall motion is normal. There is no thrombus. No defenite ASD ,VSD or PFO seen. Right Ventricle The right ventricle is not well visualized secondary to technical limitations. Atria The right atrium is normal. The left atrial size is normal. Mitral Valve There is no evidence of mitral valve prolapse. There is no vegetation seen on the mitral valve. There is no mitral valve stenosis. There is a trace amount of mitral regurgitation. Aortic Valve There is no aortic valvular vegetation. There is no aortic valve stenosis. There is aortic sclerosis without aortic stenosis. There is no LVOT obstruction. No aortic regurgitation is present. Tricuspid Valve There is no tricuspid stenosis. There is a trace amount of tricuspid regurgitation. Tricuspid regurgitation jet envelope not well defined to measure RV systolic pressure accurately. Pulmonic Valve There is no pulmonic valvular stenosis. There is no pulmonic valvular regurgitation. Great Vessels The aortic root is normal size. The inferior vena cava appeared normal and decreased > 50% with respiration (RAP 5-10 mmHg). Effusions There is no pericardial effusion. : CHRISTINE LUCERO Lakshmi
--- NOTE | 2019-06-20 21:47 | PDOC CONSULTATION ---
Consultation-Blank Consultation: CARDIOLOGY CONSULTATION by Dr. Maxine Baltazar on 06/20/2019. Patient seen at 9:45 PM. 60 minutes spent as patient more than 50% of time spent in direct patient care. REASON FOR CONSULTATION: Atrial fibrillation with rapid ventricular response. CONSULT REQUESTING PHYSICIAN: Dr. Jimmy Powers, [facility]. HISTORY OF PRESENT ILLNESS: Past Medical History Cardiac Medical History: Reports: Atrial Fibrillation, Hypertension Denies: Coronary Artery Disease, Myocardial Infarction Pulmonary Medical History: Denies: Asthma, Bronchitis, Chronic Obstructive Pulmonary Disease (COPD), Pneumonia Neurological Medical History: Denies: Seizures Endocrine Medical History: Reports: Diabetes Mellitus Type 2 Musculoskeltal Medical History: Denies: Arthritis Hematology: Reports: Anemia - hx Past Surgical History Past Surgical History: Reports: Hysterectomy, Orthopedic Surgery Social History Information Source: Patient, Emergency [facility]nel, [facility] Records Lives with: Family, Spouse/Significant other Smoking Status: Never Smoker Frequency of Alcohol Use: None Hx Recreational Drug Use: No Hx Prescription Drug Abuse: No - Advance Directive Resuscitation Status: Full Code Surrogate healthcare decision maker:: Is patient's Family History Family History: Reviewed & Not Pertinent Parental Family History Reviewed: Yes Children Family History Reviewed: Yes Sibling(s) Family History Reviewed.: Yes Medication/Allergy Home Medications: Aspirin [Ecotrin 81 mg EC Tablet] 81 mg PO DAILY 05/15/15 Glyburide [Diabeta] 2.5 mg PO ASDIR 05/15/15 Hydrochlorothiazide 25 mg PO DAILY 05/15/15 Lisinopril 10 mg PO DAILY 05/15/15 Metformin HCl 1,000 mg PO DAILY 05/15/15 Hydrocodone/Acetaminophen [[place] 5-325 mg Tablet] 1 tab PO Q6 PRN #14 tablet 08/24/16 Allergies/Adverse Reactions: acesulfame [Acesulfame] Allergy (Severe, Verified 05/15/15 15:34) rapid heartbeat, extreme high blood pressure caffeine [Caffeine] Allergy (Severe, Verified 05/15/15 15:29) extreme high blood pressure, rapid heartbeat Penicillins Allergy (Severe, Verified 05/15/15 15:20) high fever, blister at injection site soy [Soy] Allergy (Severe, Verified 05/15/15 15:29) extreme high blood pressure, rapid heart rate Sulfa (Sulfonamide Antibiotics) Allergy (Severe, Verified 05/15/15 15:20) extreme high blood pressure, rapid heartbeat ciprofloxacin [From Cipro] Allergy (Verified 06/20/19 12:08) Current Medications Acetaminophen (Tylenol 325 Mg Tablet) 650 mg PO Q4HP PRN PRN Reason: pain or fever Stop: 07/20/19 17:22 Diltiazem HCl (Cardizem Rtu Inj 125 Mg-D5w 125 Ml Premix) 125 mg in 125 mls @ 0 mls/hr IV CONTINUOUS PRN; Protocol PRN Reason: THIS MED IS NOT "PRN" Stop: 07/20/19 12:30 Last Admin: 06/20/19 21:23 Dose: 15 mls/hr, 15 mls/hr Documented by: Heparin Sodium/Dextrose (Heparin Rtu 25,000 Unit/250 Ml D5w Premix) 25,000 unit in 250 mls @ 0 mls/hr IV CONTINUOUS PRN; Protocol PRN Reason: THIS MED IS NOT "PRN" Stop: 07/20/19 17:24 Last Admin: 06/20/19 20:06 Dose: 15.81 mls/hr, 15.81 mls/hr Documented by: Metronidazole (Flagyl Rtu 500 Mg/Ns 100ml Premix) 500 mg in 100 mls @ 100 mls/hr IV Q6 JEREMIAS Stop: 06/28/19 00:00 Insulin Human Lispro (Humalog Insulin 100 Unit/1 Ml 3 Ml Vial) 0 - 12 unit SUBCUT ACHS JEREMIAS; Protocol Stop: 07/20/19 21:59 Ondansetron HCl (Zofran Odt 4 Mg Tablet) 4 mg PO Q4HP PRN PRN Reason: FOR NAUSEA/VOMITING Stop: 07/20/19 17:22 Ondansetron HCl (Zofran Inj/Pf 4 Mg/2 Ml Sdv) 4 mg IV Q8HP PRN PRN Reason: FOR NAUSEA/VOMITING Stop: 07/20/19 17:22 Discontinued Medications Digoxin (Lanoxin Inj 0.5 Mg/2 Ml Ampule) 0.25 mg IV NOW ONE Stop: 06/20/19 17:36 Last Admin: 06/20/19 17:49 Dose: 0.25 mg Documented by: Diltiazem HCl (Cardizem Inj 25 Mg/5 Ml Vial) 25 mg IV NOW ONE Stop: 06/20/19 12:32 Last Admin: 06/20/19 12:39 Dose: 25 mg Documented by: Diltiazem HCl (Cardizem Inj 25 Mg/5 Ml Vial) 20 mg IV NOW ONE Stop: 06/20/19 13:27 Last Admin: 06/20/19 13:31 Dose: 20 mg Documented by: Heparin Sodium (Porcine) (Heparin Inj 1,000 Unit/Ml 10 Ml Vial) 4,000 unit IV NOW ONE Stop: 06/20/19 17:26 Last Admin: 06/20/19 17:49 Dose: 4,000 units Documented by: Magnesium Sulfate/Dextrose (Magnesium Sulfate Rtu-D5w 1 Gm/100 Ml Premix) 1 gm in 100 mls @ 100 mls/hr IV Q1H JEREMIAS Stop: 06/20/19 16:14 Last Admin: 06/20/19 17:04 Dose: Not Given Documented by: Magnesium Sulfate/Dextrose (Magnesium Sulfate Rtu-D5w 1 Gm/100 Ml Premix) 1 gm in 100 mls @ 100 mls/hr IV NOW ONE Stop: 06/20/19 18:34 Last Infusion: 06/20/19 19:40 Dose: Infused Documented by: Metoprolol Tartrate (Lopressor Inj/Pf 5 Mg/5 Ml Sdv) 5 mg IV NOW ONE Stop: 06/20/19 14:03 Last Admin: 06/20/19 14:43 Dose: 5 mg Documented by: Metoprolol Tartrate (Lopressor Inj/Pf 5 Mg/5 Ml Sdv) 5 mg IV NOW ONE Stop: 06/20/19 16:53 Last Admin: 06/20/19 17:06 Dose: 5 mg Documented by: Metoprolol Tartrate (Lopressor Inj/Pf 5 Mg/5 Ml Sdv) 5 mg IV NOW ONE Stop: 06/20/19 20:22 Last Admin: 06/20/19 20:35 Dose: 5 mg Documented by: REVIEW OF SYSTEMS: PHYSICAL EXAMINATION: The patient is morbidly obese. She is well-groomed. Selected Entries 06/20/19 12:11 Temperature 98.4 F Temperature Oral Source Pulse Rate [ 146 H Right Finger] Respiratory 18 Rate Blood Pressure 164/84 H [Left Upper Arm ] Blood Pressure 110 Mean [Left Upper Arm] O2 Sat by Pulse 100 Oximetry Oxygen Delivery Room Air Method ( includes room air) HEAD: EKG: Atrial fibrillation with rapid ventricular response. Diffuse nonspecific ST-T changes. Labs- Entire Visit 06/20/19 06/20/19 06/20/19 12:27 12:27 12:27 WBC 7.9 RBC 4.10 Hgb 10.5 L Hct 32.4 L MCV 79 L MCH 25.7 L MCHC 32.5 RDW 17.1 H Plt Count 343 Lymph % (Auto) 23.4 [place] % (Auto) 12.6 Eos % (Auto) 1.3 Baso % (Auto) 1.0 Absolute Neuts (auto) 4.9 Absolute Lymphs (auto) 1.9 Absolute Monos (auto) 1.0 Absolute Eos (auto) 0.1 Absolute Basos (auto) 0.1 Seg Neutrophils % 61.7 PT INR APTT Sodium 135.3 L Potassium 4.1 Chloride 99 Carbon Dioxide 23 Anion Gap 13 BUN 15 Creatinine 0.91 Est GFR ( Amer) > 60 Est GFR (MDRD) Non-Af > 60 Glucose 146 H POC Glucose Calcium 9.2 Magnesium 1.4 L Total Bilirubin 0.4 Direct Bilirubin 0.1 Neonat Total Bilirubin Not Reportable Neonat Direct Bilirubin Not Reportable Neonat Indirect Bili Not Reportable AST 36 ALT 23 Alkaline Phosphatase 100 Troponin I < 0.012 NT-Pro-B Natriuret Pep 370 H Total Protein 8.0 Albumin 4.0 Lipase 116.2 TSH Free T4 Urine Color Urine Appearance Urine pH Ur Specific [place] Urine Protein Urine Glucose (UA) Urine Ketones Urine Blood Urine Nitrite Urine Bilirubin Urine Urobilinogen Ur Leukocyte Esterase Urine WBC (Auto) Urine RBC (Auto) Urine Bacteria (Auto) Squamous Epi Cells Auto Urine Mucus (Auto) Urine Ascorbic Acid Urine Opiates Screen Urine Methadone Screen Ur Barbiturates Screen Ur Phencyclidine Scrn Ur Amphetamines Screen U Benzodiazepines Scrn Urine Cocaine Screen U Marijuana (THC) Screen 06/20/19 06/20/19 06/20/19 12:27 12:27 12:27 WBC RBC Hgb Hct MCV MCH MCHC RDW Plt Count Lymph % (Auto) [place] % (Auto) Eos % (Auto) Baso % (Auto) Absolute Neuts (auto) Absolute Lymphs (auto) Absolute Monos (auto) Absolute Eos (auto) Absolute Basos (auto) Seg Neutrophils % PT 13.8 INR 1.06 APTT 30.6 Sodium Potassium Chloride Carbon Dioxide Anion Gap BUN Creatinine Est GFR ( Amer) Est GFR (MDRD) Non-Af Glucose POC Glucose Calcium Magnesium Total Bilirubin Direct Bilirubin Neonat Total Bilirubin Neonat Direct Bilirubin Neonat Indirect Bili AST ALT Alkaline Phosphatase Troponin I NT-Pro-B Natriuret Pep Total Protein Albumin Lipase TSH 1.75 Free T4 Urine Color STRAW Urine Appearance CLEAR Urine pH 6.0 Ur Specific [place] 1.004 Urine Protein 30 H Urine Glucose (UA) NEGATIVE Urine Ketones TRACE H Urine Blood SMALL H Urine Nitrite NEGATIVE Urine Bilirubin NEGATIVE Urine Urobilinogen NEGATIVE Ur Leukocyte Esterase MODERATE H Urine WBC (Auto) 5 Urine RBC (Auto) 0 Urine Bacteria (Auto) TRACE Squamous Epi Cells Auto 1 Urine Mucus (Auto) RARE Urine Ascorbic Acid NEGATIVE Urine Opiates Screen Urine Methadone Screen Ur Barbiturates Screen Ur Phencyclidine Scrn Ur Amphetamines Screen U Benzodiazepines Scrn Urine Cocaine Screen U Marijuana (THC) Screen 06/20/19 06/20/19 06/20/19 12:27 18:40 18:40 WBC RBC Hgb Hct MCV MCH MCHC RDW Plt Count Lymph % (Auto) [place] % (Auto) Eos % (Auto) Baso % (Auto) Absolute Neuts (auto) Absolute Lymphs (auto) Absolute Monos (auto) Absolute Eos (auto) Absolute Basos (auto) Seg Neutrophils % PT INR APTT Sodium 134.6 L Potassium 3.9 Chloride 100 Carbon Dioxide 24 Anion Gap 11 BUN 15 Creatinine 0.86 Est GFR ( Amer) > 60 Est GFR (MDRD) Non-Af > 60 Glucose 160 H POC Glucose Calcium 8.9 Magnesium Total Bilirubin Direct Bilirubin Neonat Total Bilirubin Neonat Direct Bilirubin Neonat Indirect Bili AST ALT Alkaline Phosphatase Troponin I NT-Pro-B Natriuret Pep Total Protein Albumin Lipase TSH 1.38 Free T4 1.64 Urine Color Urine Appearance Urine pH Ur Specific [place] Urine Protein Urine Glucose (UA) Urine Ketones Urine Blood Urine Nitrite Urine Bilirubin Urine Urobilinogen Ur Leukocyte Esterase Urine WBC (Auto) Urine RBC (Auto) Urine Bacteria (Auto) Squamous Epi Cells Auto Urine Mucus (Auto) Urine Ascorbic Acid Urine Opiates Screen NEGATIVE Urine Methadone Screen NEGATIVE Ur Barbiturates Screen NEGATIVE Ur Phencyclidine Scrn NEGATIVE Ur Amphetamines Screen NEGATIVE U Benzodiazepines Scrn NEGATIVE Urine Cocaine Screen NEGATIVE U Marijuana (THC) Screen NEGATIVE 06/20/19 06/20/19 06/20/19 18:40 18:54 19:00 WBC 7.7 RBC 3.97 Hgb 10.2 L Hct 31.5 L MCV 79 L MCH 25.8 L MCHC 32.5 RDW 17.4 H Plt Count 369 Lymph % (Auto) 24.6 [place] % (Auto) 11.3 Eos % (Auto) 1.2 Baso % (Auto) 1.1 Absolute Neuts (auto) 4.8 Absolute Lymphs (auto) 1.9 Absolute Monos (auto) 0.9 Absolute Eos (auto) 0.1 Absolute Basos (auto) 0.1 Seg Neutrophils % 61.8 PT 14.8 INR 1.16 APTT 75.4 H D Sodium Potassium Chloride Carbon Dioxide Anion Gap BUN Creatinine Est GFR ( Amer) Est GFR (MDRD) Non-Af Glucose POC Glucose 154 H Calcium Magnesium Total Bilirubin Direct Bilirubin Neonat Total Bilirubin Neonat Direct Bilirubin Neonat Indirect Bili AST ALT Alkaline Phosphatase Troponin I NT-Pro-B Natriuret Pep Total Protein Albumin Lipase TSH Free T4 Urine Color Urine Appearance Urine pH Ur Specific [place] Urine Protein Urine Glucose (UA) Urine Ketones Urine Blood Urine Nitrite Urine Bilirubin Urine Urobilinogen Ur Leukocyte Esterase Urine WBC (Auto) Urine RBC (Auto) Urine Bacteria (Auto) Squamous Epi Cells Auto Urine Mucus (Auto) Urine Ascorbic Acid Urine Opiates Screen Urine Methadone Screen Ur Barbiturates Screen Ur Phencyclidine Scrn Ur Amphetamines Screen U Benzodiazepines Scrn Urine Cocaine Screen U Marijuana (THC) Screen 06/20/19 21:40 WBC RBC Hgb Hct MCV MCH MCHC RDW Plt Count Lymph % (Auto) [place] % (Auto) Eos % (Auto) Baso % (Auto) Absolute Neuts (auto) Absolute Lymphs (auto) Absolute Monos (auto) Absolute Eos (auto) Absolute Basos (auto) Seg Neutrophils % PT INR APTT Sodium Potassium Chloride Carbon Dioxide Anion Gap BUN Creatinine Est GFR ( Amer) Est GFR (MDRD) Non-Af Glucose POC Glucose 186 H Calcium Magnesium Total Bilirubin Direct Bilirubin Neonat Total Bilirubin Neonat Direct Bilirubin Neonat Indirect Bili AST ALT Alkaline Phosphatase Troponin I NT-Pro-B Natriuret Pep Total Protein Albumin Lipase TSH Free T4 Urine Color Urine Appearance Urine pH Ur Specific [place] Urine Protein Urine Glucose (UA) Urine Ketones Urine Blood Urine Nitrite Urine Bilirubin Urine Urobilinogen Ur Leukocyte Esterase Urine WBC (Auto) Urine RBC (Auto) Urine Bacteria (Auto) Squamous Epi Cells Auto Urine Mucus (Auto) Urine Ascorbic Acid Urine Opiates Screen Urine Methadone Screen Ur Barbiturates Screen Ur Phencyclidine Scrn Ur Amphetamines Screen U Benzodiazepines Scrn Urine Cocaine Screen U Marijuana (THC) Screen Abdomen/Pelvis CT 06/20/19 00:00 IMPRESSION: Imaging is degraded by patient motion, with resultant artifact. The best possible images were obtained. No central pulmonary embolus. Chronic parenchymal lung change. No acute intrathoracic process. Inflammatory changes identified within the pelvis. There also appears to be acute uncomplicated diverticulitis of the sigmoid colon. 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 Chest/Abdomen CTA 06/20/19 00:00 IMPRESSION: Imaging is degraded by patient motion, with resultant artifact. The best possible images were obtained. No central pulmonary embolus. Chronic parenchymal lung change. No acute intrathoracic process. Inflammatory changes identified within the pelvis. There also appears to be acute uncomplicated diverticulitis of the sigmoid colon. 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 Chest X-Ray 06/20/19 12:08 IMPRESSION: No evidence of acute cardiopulmonary process. ECHOCARDIOGRAM:- The left ventricle is normal in size. There is mild concentric left ventricular hypertrophy. LV EF is 60% Left ventricular systolic function is normal. Doppler measurements suggest impaired left ventricular relaxation, which is associated with grade I/IV or mild diastolic dysfunction By tissue dopplers. The left ventricular wall motion is normal. There is no thrombus. No defenite ASD ,VSD or PFO seen. The right ventricle is not well visualized secondary to technical limitations The right atrium is normal. The left atrial size is normal. There is no evidence of mitral valve prolapse. There is no vegetation seen on the mitral valve. There is no mitral valve stenosis. There is a trace amount of mitral regurgitation There is no aortic valvular vegetation. There is no aortic valve stenosis There is aortic sclerosis without aortic stenosis. There is no LVOT obstruction. No aortic regurgitation is present. There is no tricuspid stenosis. There is a trace amount of tricuspid regurgitation Tricuspid regurgitation jet envelope not well defined to measure RV systolic pressure accurately. There is no pulmonic valvular stenosis. The inferior vena cava appeared normal and decreased > 50% with respiration (RAP 5-10 mmHg) IMPRESSION/RECOMMENDATION: 1. Atrial fibrillation with rapid response. Continue the patient on IV Cardizem. The patient was given 2 doses of IV metoprolol 5 mg a few hours apart. The patient also received digoxin. The patient's magnesium has been corrected. We will continue the patient's IV heparin for now and then switch to oral anticoagulation. We will also start the patient on p.o. Lopressor and wean off the Cardizem drip to off. She has a prior history of paroxysmal atrial fibrillation by clinical history, with this being the most prolonged episode. 2. CORRECTED CHUY VASC -2 score: One-point for age, one-point for hypertension, one-point for diabetes, and one-point for being female. The patient's corrected Chuy Vascor is 4 hence definitely needs chronic anticoagulation therapy. 3. Dehydration: We will give the patient to 50 mL of normal saline and start the patient on lactated Ringer at 100 mL/h. 4. Electrolyte imbalance: Current the patient has hypomagnesemia and hypokalemia. This is being done. We will recheck the levels in the a.m. 5. Hypertension: Blood pressure stable. 6. Diabetes mellitus: Continue antidiabetic treatment and Accu-Cheks as per protocol. 7. Possible pelvic pelvic inflammatory disease with possible vaginal infection. Agree with continuing Flagyl. 8. Morbid obesity: This will be later addressed as an outpatient. 9. Multiple CAD risk factors. Would recommend IV Lexiscan Cardiolite stress test. This can be done as an outpatient. Medications reviewed. Medications reviewed. Medical regimen and management plan discussed with the attending provider on the case. 60 minutes spent as patient more than 50% of time spent in direct patient care. Medical decision making is of high complexity. Will follow.
[2019-06-20] MEDS: INSULIN LISPRO 100 UNIT/ML 3 ML VIAL SUBCUT SCH (21:59)
[2019-06-20] MEDS ORDERED: RINGERS SOLUTION,LACTATED 1,000 ML IV PRN (22:26)
[2019-06-20] MEDS ORDERED: NORMAL SALINE 1000 ML 250 ML IV ONE (23:00)
[2019-06-20] MEDS: METOPROLOL TARTRATE 50 MG TABLET PO SCH (23:47)
[2019-06-21] MEDS ORDERED: NORMAL SALINE 250 ML IV ONE (00:15)
[2019-06-21] MEDS: METRONIDAZOLE 500 MG/NS RTU 500 MG/100 ML RTUPB IV SCH ×2 (00:55→05:40)
[2019-06-21 02:13] LABS: ABSOLUTE BASOPHILS # (AUTO) 0.1 10^3/uL (0.0-0.2); ABSOLUTE EOSINOPHILS # (AUTO) 0.1 10^3/uL (0.0-0.6); ABSOLUTE LYMPHOCYTES (AUTO) 2.2 10^3/uL (0.5-4.7); ABSOLUTE MONOCYTES (AUTO) 0.7 10^3/uL (0.1-1.4); ABSOLUTE NEUT (AUTO) 3.6 10^3/uL (1.7-8.2); BASOPHILS % (AUTO) 0.9 % (0-2); EOSINOPHILS % (AUTO) 1.4 % (0-6); HEMATOCRIT 31.9 % (36.0-47.0); HEMOGLOBIN 10.3 g/dL (12.0-15.5); LYMPHOCYTES % (AUTO) 32.5 % (13-45); MEAN CORPUSCULAR HEMOGLOBIN 25.2 pg (27.0-33.4); MEAN CORPUSCULAR HGB CONC 32.4 g/dL (32.0-36.0); MEAN CORPUSCULAR VOLUME 78 fl (80-97); MONOCYTES % (AUTO) 11.1 % (3-13); PLATELET COUNT 372 10^3/uL (150-450); RED BLOOD COUNT 4.11 10^6/uL (3.72-5.28); RED CELL DISTRIBUTION WIDTH 16.9 % (11.5-14.0); SEGMENTED NEUTROPHILS % (AUTO) 54.1 % (42-78); TOTAL CELLS COUNTED % (AUTO) 100 %; WHITE BLOOD COUNT 6.6 10^3/uL (4.0-10.5)
--- NOTE | 2019-06-21 07:08 | EKG REPORT ---
SEVERITY:- ABNORMAL ECG - SINUS RHYTHM NONSPECIFIC T ABNORMALITIES, LATERAL LEADS : Confirmed by: Donta Carrasco MD 21-Jun-2019 07:07:45
[2019-06-21] MEDS: LISINOPRIL 10 MG TABLET PO SCH ×2 (09:08→21:06)
[2019-06-21] MEDS: METOPROLOL TARTRATE 50 MG TABLET PO SCH ×2 (09:08→21:06)
[2019-06-21] MEDS: INSULIN LISPRO 100 UNIT/ML 3 ML VIAL SUBCUT SCH ×4 (09:09→21:06)
[2019-06-21] MEDS ORDERED: GLYBURIDE 2.5 MG TABLET PO ONE (12:30)
--- NOTE | 2019-06-21 12:56 | PDOC PROGRESS REPORT ---
Subjective Progress Note for:: 06/21/19 Subjective:: 06/21/2019 Patient admitted yesterday for fever of unknown origin and new onset A. fib with RVR. I obtained a CT scan of her chest abdomen and pelvis with contrast. There is no mention in the radiology report of a pelvic mass, however they did mention what appeared to be metastases to the abdominal wall also noting patient has acute sigmoid diverticulitis and in the body of the report but not the impression they state there is a approximately 3 cm fluid collection possibly an abscess in her retroperitoneum. I consulted general surgery to get their opinion on draining this potential abscess. I have changed the patient's antibiotics to meropenem instead of IV Flagyl and also to cover gram negatives given that she cannot have fluoroquinolones due to allergies. We also noted an ascending aortic aneurysm of approximately 4 cm. Patient is converted to normal sinus rhythm today according to Dr. Baltazar. Her heparin drip will be transitioned to Eliquis provided the general surgeon does not want to operate on her. A1c is 7. Patient is refusing her subcutaneous insulin. We will not give her metformin as she may need more contrast studies. She can have her glyburide instead. Reason For Visit: AFIB WTIH RUR Physical Exam Vital Signs: Temp Pulse Resp BP Pulse Ox 97.7 F 72 18 134/64 H 96 06/21/19 08:08 06/21/19 09:00 06/21/19 08:08 06/21/19 09:00 06/21/19 08:08 Intake & Output 06/20/19 06/21/19 06/22/19 06:59 06:59 06:59 Intake Total 1680 788 Balance 1680 788 Weight 168.1 kg General appearance: PRESENT: no acute distress, morbidly obese Head exam: PRESENT: atraumatic, normocephalic Eye exam: PRESENT: conjunctiva pink Mouth exam: PRESENT: moist Respiratory exam: PRESENT: clear to auscultation keren. ABSENT: rales, rhonchi, wheezes GI/Abdominal exam: PRESENT: normal bowel sounds, soft. ABSENT: distended, guarding, mass, organolmegaly, rebound, tenderness Musculoskeletal exam: PRESENT: ambulatory Neurological exam: PRESENT: alert, awake, oriented to person, oriented to place, oriented to time, oriented to situation Psychiatric exam: PRESENT: appropriate affect, normal mood Skin exam: PRESENT: dry, intact, warm Results Laboratory Results: 06/21/19 02:04 06/20/19 18:40 06/20/19 06/20/19 06/20/19 12:27 12:27 12:27 WBC 7.9 RBC 4.10 Hgb 10.5 L Hct 32.4 L MCV 79 L MCH 25.7 L MCHC 32.5 RDW 17.1 H Plt Count 343 Seg Neutrophils % 61.7 Sodium 135.3 L Potassium 4.1 Chloride 99 Carbon Dioxide 23 Anion Gap 13 BUN 15 Creatinine 0.91 Est GFR ( Amer) > 60 Glucose 146 H Calcium 9.2 Magnesium 1.4 L Total Bilirubin 0.4 AST 36 Alkaline Phosphatase 100 Total Protein 8.0 Albumin 4.0 Lipase 116.2 TSH 1.75 Free T4 Urine Color Urine Appearance Urine pH Ur Specific [place] Urine Protein Urine Glucose (UA) Urine Ketones Urine Blood Urine Nitrite Ur Leukocyte Esterase Urine WBC (Auto) Urine RBC (Auto) 06/20/19 06/20/19 06/20/19 12:27 18:40 18:40 WBC RBC Hgb Hct MCV MCH MCHC RDW Plt Count Seg Neutrophils % Sodium 134.6 L Potassium 3.9 Chloride 100 Carbon Dioxide 24 Anion Gap 11 BUN 15 Creatinine 0.86 Est GFR ( Amer) > 60 Glucose 160 H Calcium 8.9 Magnesium Total Bilirubin AST Alkaline Phosphatase Total Protein Albumin Lipase TSH 1.38 Free T4 1.64 Urine Color STRAW Urine Appearance CLEAR Urine pH 6.0 Ur Specific [place] 1.004 Urine Protein 30 H Urine Glucose (UA) NEGATIVE Urine Ketones TRACE H Urine Blood SMALL H Urine Nitrite NEGATIVE Ur Leukocyte Esterase MODERATE H Urine WBC (Auto) 5 Urine RBC (Auto) 0 06/20/19 06/21/19 06/21/19 18:54 02:04 02:04 WBC 7.7 6.6 RBC 3.97 4.11 Hgb 10.2 L 10.3 L Hct 31.5 L 31.9 L MCV 79 L 78 L MCH 25.8 L 25.2 L MCHC 32.5 32.4 RDW 17.4 H 16.9 H Plt Count 369 372 Seg Neutrophils % 61.8 54.1 Sodium Potassium Chloride Carbon Dioxide Anion Gap BUN Creatinine Est GFR ( Amer) Glucose Calcium Magnesium 1.8 Total Bilirubin AST Alkaline Phosphatase Total Protein Albumin Lipase TSH Free T4 Urine Color Urine Appearance Urine pH Ur Specific [place] Urine Protein Urine Glucose (UA) Urine Ketones Urine Blood Urine Nitrite Ur Leukocyte Esterase Urine WBC (Auto) Urine RBC (Auto) 06/20/19 12:27 Troponin I < 0.012 NT-Pro-B Natriuret Pep 370 H Impressions: Abdomen/Pelvis CT 06/20/19 00:00 IMPRESSION: Imaging is degraded by patient motion, with resultant artifact. The best possible images were obtained. No central pulmonary embolus. Chronic parenchymal lung change. No acute intrathoracic process. Inflammatory changes identified within the pelvis. There also appears to be acute uncomplicated diverticulitis of the sigmoid colon. 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 Chest/Abdomen CTA 06/20/19 00:00 IMPRESSION: Imaging is degraded by patient motion, with resultant artifact. The best possible images were obtained. No central pulmonary embolus. Chronic parenchymal lung change. No acute intrathoracic process. Inflammatory changes identified within the pelvis. There also appears to be acute uncomplicated diverticulitis of the sigmoid colon. 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 Chest X-Ray 06/20/19 12:08 IMPRESSION: No evidence of acute cardiopulmonary process. Assessment and Plan - Diagnosis (1) Atrial fibrillation with RVR Is this a current diagnosis for this admission?: Yes Plan: Seen on EKG on admission Telemetry later showed SVT Magnesium notably low, repleting IV Etiology is unclear: Possibly due to PE versus UTI/pelvic infection versus obstructive sleep apnea IV heparin drip started Diltiazem drip with multiple boluses given on admission to minimal effect, drip rate up to 15 mg/h Digoxin given x1 dose in ED along with Lopressor, temporary heart rate dropped to low 100s with rebound to 130s thereafter Echocardiogram Cardiology consulted 06/21/2019 Patient converted to normal sinus rhythm today Heparin drip can be stopped and she can be started on Eliquis assuming she does not require any surgeries per the general surgeon Dr. Baltazar and cardiology following and I discussed the case with him today (2) Pelvic mass in female Is this a current diagnosis for this admission?: Yes Plan: Seen on transvaginal ultrasound ordered by her PCP per patient CT abdomen/pelvis with contrast Suspect malignancy 06/21/2019 I discussed case with general surgery CTA chest/abdomen/pelvis reviewed, no PE however they raise concerns of possible metastatic lesions on the abdominal wall but the radiologist did not mention seeing any masses or primary sources of cancer. (3) Vaginal discharge, bloody Is this a current diagnosis for this admission?: Yes (4) T2DM (type 2 diabetes mellitus) Qualifiers: Diabetes mellitus correction insulin use: without correction use Diabetes mellitus complication status: without complication Qualified Code(s): E11.9 - Type 2 diabetes mellitus without complications Is this a current diagnosis for this admission?: Yes (5) HTN (hypertension) Is this a current diagnosis for this admission?: Yes (6) Drug allergy, antibiotic Is this a current diagnosis for this admission?: Yes (7) Acute diverticulitis Is this a current diagnosis for this admission?: Yes Plan: Seen on CT abdomen/pelvis with contrast involving the sigmoid colon Meropenem started (patient has severe allergy to penicillins and fluoroquinolones) General surgery consulted for possible retroperitoneal 3 cm abscess seen on CT - Time Time Spent with patient: 25-34 minutes Medications reviewed and adjusted accordingly: Yes Anticipated discharge: Home - Inpatient Certification Based on my medical assessment, after consideration of the patient's comorbidities, presenting symptoms, or acuity I expect that the services needed warrant INPATIENT care.: Yes I certify that my determination is in accordance with my understanding of Medicare's requirements for reasonable and necessary INPATIENT services [42 CFR 412.3e].: Yes Medical Necessity: Significant Comorbidiites Make Outpatient Treatment Too [place]is [place], Need Close Monitoring Due to Risk of Patient Decompensation, Need for IV Antibiotics, Risk of Complication if Not Cared For in Hospital, Risk of Diagnosis Which Will Require Inpatient Eval/Care/Monitoring
--- NOTE | 2019-06-21 13:37 | PDOC CONSULTATION ---
Consultation Consult Date: 06/21/19 Provider Consulted: YAMINI ZACARIAS History of Present Illness Admission Date/PCP: 06/20/19 18:50 RC RIOS MD History of Present Illness: ED FIGUEROA is a 69 year old female currently in the hospital for evaluation of atrial fib with rapid ventricular rate. She has a history of possible pelvic mass that was noted by gynecology and to evaluate this history she underwent a CT scan which was read out as possible metastatic disease. General surgery now being consulted to evaluate the CT scan abnormality. Patient notes that she was feeling well up until about 3 weeks ago when she developed lower abdominal pain along with some diarrhea. Patient was treated with nitrofurantoin for urinary tract infection and her abdominal pain and her diarrhea completely resolved. However she has continued to have some vaginal discharge and she was seen by gynecology and was placed on another course of antibiotics. The discharge has improved. She denies any current abdominal pain. She denies any diarrhea. She has had a history of colon polyps in the past and is now due for follow-up colonoscopy. She has no history of malignancies in the past. She has had a right oophorectomy along with hysterectomy for a non-malignant process in the remote past. She has no family history of malignancies. Patient does suffer from diabetes. No significant weight change in the recent months. Other than the recent events she had otherwise felt well. Past Medical History Cardiac Medical History: Reports: Atrial Fibrillation, Hypertension Denies: Coronary Artery Disease, Myocardial Infarction Pulmonary Medical History: Denies: Asthma, Bronchitis, Chronic Obstructive Pulmonary Disease (COPD), Pneumonia Neurological Medical History: Denies: Seizures Endocrine Medical History: Reports: Diabetes Mellitus Type 2 GI Medical History: Reports: Diverticulitis Musculoskeltal Medical History: Denies: Arthritis Psychiatric Medical History: Denies: Depression Hematology: Reports: Anemia - hx Past Surgical History Past Surgical History: Reports: Hysterectomy, Orthopedic Surgery Social History Lives with: Family Smoking Status: Never Smoker Frequency of Alcohol Use: None Hx Recreational Drug Use: No Hx Prescription Drug Abuse: No - Advance Directive Resuscitation Status: Full Code Family History Family History: Reviewed & Not Pertinent Parental Family History Reviewed: Yes Children Family History Reviewed: Yes Sibling(s) Family History Reviewed.: Yes Medication/Allergy Home Medications: Aspirin [Ecotrin 81 mg EC Tablet] 81 mg PO QAM 05/15/15 Glyburide [Diabeta] 2.5 mg PO BID 05/15/15 Hydrochlorothiazide 25 mg PO QAM 05/15/15 Lisinopril 20 mg pe PO QAM 06/20/19 Metformin HCl [Glucophage 500 mg Tablet] 500 mg PO BID 06/20/19 Allergies/Adverse Reactions: acesulfame [Acesulfame] Allergy (Severe, Verified 05/15/15 15:34) rapid heartbeat, extreme high blood pressure caffeine [Caffeine] Allergy (Severe, Verified 05/15/15 15:29) extreme high blood pressure, rapid heartbeat Penicillins Allergy (Severe, Verified 05/15/15 15:20) high fever, blister at injection site soy [Soy] Allergy (Severe, Verified 05/15/15 15:29) extreme high blood pressure, rapid heart rate Sulfa (Sulfonamide Antibiotics) Allergy (Severe, Verified 05/15/15 15:20) extreme high blood pressure, rapid heartbeat ciprofloxacin [From Cipro] Allergy (Verified 06/20/19 12:08) Physical Exam Vital Signs: Temp Pulse Resp BP Pulse Ox 98.1 F 64 16 135/68 H 98 06/21/19 11:49 06/21/19 11:49 06/21/19 11:49 06/21/19 11:49 06/21/19 11:49 Intake & Output 06/20/19 06/21/19 06/22/19 06:59 06:59 06:59 Intake Total 1680 788 Balance 1680 788 Weight 168.1 kg General appearance: PRESENT: no acute distress, cooperative, morbidly obese Eye exam: PRESENT: conjunctiva pink Respiratory exam: PRESENT: clear to auscultation keren Cardiovascular exam: PRESENT: RRR GI/Abdominal exam: PRESENT: other - Soft, nondistended, nontender to palpation. Neurological exam: PRESENT: alert, awake Psychiatric exam: PRESENT: appropriate affect Skin exam: PRESENT: warm Results Laboratory Results: 06/21/19 02:04 06/20/19 18:40 06/20/19 06/20/19 06/20/19 12:27 12:27 18:40 WBC RBC Hgb Hct MCV MCH MCHC RDW Plt Count Seg Neutrophils % Sodium 135.3 L Potassium 4.1 Chloride 99 Carbon Dioxide 23 Anion Gap 13 BUN 15 Creatinine 0.91 Est GFR ( Amer) > 60 Glucose 146 H Calcium 9.2 Magnesium 1.4 L Total Bilirubin 0.4 AST 36 Alkaline Phosphatase 100 Total Protein 8.0 Albumin 4.0 Lipase 116.2 TSH 1.75 1.38 Free T4 1.64 06/20/19 06/20/19 06/21/19 18:40 18:54 02:04 WBC 7.7 6.6 RBC 3.97 4.11 Hgb 10.2 L 10.3 L Hct 31.5 L 31.9 L MCV 79 L 78 L MCH 25.8 L 25.2 L MCHC 32.5 32.4 RDW 17.4 H 16.9 H Plt Count 369 372 Seg Neutrophils % 61.8 54.1 Sodium 134.6 L Potassium 3.9 Chloride 100 Carbon Dioxide 24 Anion Gap 11 BUN 15 Creatinine 0.86 Est GFR ( Amer) > 60 Glucose 160 H Calcium 8.9 Magnesium Total Bilirubin AST Alkaline Phosphatase Total Protein Albumin Lipase TSH Free T4 06/21/19 02:04 WBC RBC Hgb Hct MCV MCH MCHC RDW Plt Count Seg Neutrophils % Sodium Potassium Chloride Carbon Dioxide Anion Gap BUN Creatinine Est GFR ( Amer) Glucose Calcium Magnesium 1.8 Total Bilirubin AST Alkaline Phosphatase Total Protein Albumin Lipase TSH Free T4 06/20/19 12:27 Troponin I < 0.012 NT-Pro-B Natriuret Pep 370 H Impressions: Abdomen/Pelvis CT 06/20/19 00:00 IMPRESSION: Imaging is degraded by patient motion, with resultant artifact. The best possible images were obtained. No central pulmonary embolus. Chronic parenchymal lung change. No acute intrathoracic process. Inflammatory changes identified within the pelvis. There also appears to be acute uncomplicated diverticulitis of the sigmoid colon. 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 Chest/Abdomen CTA 06/20/19 00:00 IMPRESSION: Imaging is degraded by patient motion, with resultant artifact. The best possible images were obtained. No central pulmonary embolus. Chronic parenchymal lung change. No acute intrathoracic process. Inflammatory changes identified within the pelvis. There also appears to be acute uncomplicated diverticulitis of the sigmoid colon. 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 Chest X-Ray 06/20/19 12:08 IMPRESSION: No evidence of acute cardiopulmonary process. Assessment & Plan - Diagnosis (1) Diverticulitis large intestine Qualifiers: Diverticulitis bleeding: without bleeding Diverticulitis complication: without perforation or abscess Qualified Code(s): K57.32 - Diverticulitis of large intestine without perforation or abscess without bleeding Is this a current diagnosis for this admission?: Yes Plan: CT scan was reviewed with our radiologist today and he felt that patient had CT scan findings consistent with diverticulitis without an abscess. He saw multiple sigmoid diverticuli along with inflammatory changes in the mesentery. There is however some bladder wall thickening although there is no air in the bladder. I do NOT think that she has an entero-vesicular fistula. With her refractory UTI and CT scan abnormality, I do recommend a urology evaluation which can be done as an outpatient if urologist is not available in hospital. I believe that the radiologist last night was given the false information that she had a malignancy and he colored his interpretation based upon this misinformation. However she has had this vaginal discharge and Dr. Adams (her home health scheduler) had wanted to see her back after a CT scan. Therefore recommend consulting Dr. Adams while she is in the hospital for his input. With this significant CT scan finding of diverticulitis and the patient not receiving ideal antibiotic treatment for this disease process, I think it would be prudent to give her a one week course of antibiotics. Her multiple antibio tic allergies makes her treatment difficult. Will defer to medicine for her antibiotic choice. I do recommend that she follow up with Dr. Joel (her hardwood floor finisher) for a colonoscopy as an outpatient. In regards to the periaortic retroperitoneal lesion, our radiologist (Dr Joseph) favor the diagnosis of a lymphocele. He believes that the density is not consistent with a solid lesion. And he also feels that there is no inflammatory changes around it to suggest an abscess. I recommend a follow-up CT scan in a few months in light of the multiple abnormalities that has been seen on this CT scan. I have discussed all of my recommendations with the hospitalist. General surgery service signing off. Please call us for any problems.
[2019-06-21] MEDS ORDERED: MEROPENEM 1 GM VIAL IV SCH (14:00)
[2019-06-21] MEDS: MEROPENEM 1 GM in NORMAL SALINE 50 ML IV SCH ×2 (14:29→21:16)
[2019-06-21] MEDS ORDERED: GLYBURIDE 2.5 MG TABLET PO SCH (16:00)
[2019-06-21 17:48] LABS: ANION GAP 10 (5-19); BLOOD UREA NITROGEN 18 mg/dL (7-20); CALCIUM 8.9 mg/dL (8.4-10.2); CARBON DIOXIDE 25 mmol/L (22-30); CHLORIDE 99 mmol/L (98-107); GLUCOSE 206 mg/dL (75-110); POTASSIUM 4.4 mmol/L (3.6-5.0)
[2019-06-21] MEDS: HYDROCHLOROTHIAZIDE 25 MG TABLET PO SCH (18:03)
[2019-06-21] MEDS: NIFEDIPINE 30 MG TAB.ER.24 PO SCH (18:46)
[2019-06-21] MEDS ORDERED: HYDRALAZINE HCL INJ/PF 20 MG/1 ML SDV IV PRN (20:33)
[2019-06-21 21:06] LABS: BACTERIA (WET MOUNT) 3+ BACTERIA SEEN; RBCS (WET MOUNT) 3+ RBCS SEEN; T.VAGINALIS (WET MOUNT) NO TRICHOMONAS SEEN; WBCS (WET MOUNT) 4+ WBCS SEEN; YEAST (WET MOUNT) NO YEAST SEEN
[2019-06-21 21:07] LABS: EPITHELIALS (WET MOUNT) 3+ EPITHELIALS SEEN
[2019-06-21 21:17] LABS: CHLAM PCR NOT DETECTED (NOT DETECT)
--- NOTE | 2019-06-21 22:01 | Progress Note ---
Provider Note Provider Note: CARDIOLOGY PROGRESS NOTE by Dr. Maxine Baltazar. On 06/21/2019. SUBJECTIVE: The patient is converted to sinus rhythm. There is no TIA CVA symptoms. The patient denies any abdominal pain or nausea vomiting. There is no chest pain. There is no shortness of breath. There is no PND orthopnea. There is no ventricular arrhythmia seen. There is no TIA CVA symptoms. Patient denies any palpitations. The patient denies any back pain. PHYSICAL EXAMINATION: The patient is morbidly obese. At present in no acute distress Selected Entries 06/21/19 06/21/19 08:08 09:00 Temperature 97.7 F Temperature Oral Source Pulse Rate 69 Respiratory 18 Rate Blood Pressure 134/64 H BP Position Sitting O2 Sat by Pulse 96 Oximetry Oxygen Delivery Room Air Method HEAD: Head is atraumatic normocephalic. Eyes: Pupils are equal round regular reactive light accommodation extraocular movements are normal there is no congenital pallor there is no scleral icterus. Ears: External auditory canals are clear, there are no lesions of the pinna. Nose: No deviated nasal septum and no inflammation of the nasal mucous membrane. Mouth: Mucous membranes of mouth are moist tongue is moist there is no ulcers there is no bleeding from the gums. Throat: There is no redness of the oropharynx there is no exudates. Skin: There is no petechia or ecchymosis there is no skin lesions or skin rashes. Neck: Neck is supple there is no JVD carotids equal there is no bruit there is no lymphadenopathy there is no neck stiffness. There is no goiter trachea central lungs: Lungs are clear to auscultation percussion there is no accessory muscles of respiration in use. There is no rhonchi rales or wheezing. There is no chest wall tenderness. HEART: S1-S2 is heard there is no S3 gallop there is no S4 gallop S1 is of normal intensity. There is no rub. The systolic murmur in the left sternal border and apex without radiation. Abdomen: Abdomen is soft nontender there is no paraspinal megaly bowel sounds well heard there is no tender areas of masses. There is no rebound guarding or rigidity. Extremities: Femorals are well felt there is no femoral bruits neck pulses are well felt there is no pedal edema there is no DVT or cellulitis there is no cyanosis or clubbing there is no DVT or cellulitis. There is no calf tenderness. STERILE PROCESS TECH: The patient is awake alert oriented 3 with no focal deficits. Psychiatric: The patient judgment and insight are intact and her affect is normal. Labs- All tests 24 hr 06/21/19 06/21/19 06/21/19 02:04 02:04 02:04 WBC 6.6 RBC 4.11 Hgb 10.3 L Hct 31.9 L MCV 78 L MCH 25.2 L MCHC 32.4 RDW 16.9 H Plt Count 372 Lymph % (Auto) 32.5 [place] % (Auto) 11.1 Eos % (Auto) 1.4 Baso % (Auto) 0.9 Absolute Neuts (auto) 3.6 Absolute Lymphs (auto) 2.2 Absolute Monos (auto) 0.7 Absolute Eos (auto) 0.1 Absolute Basos (auto) 0.1 Seg Neutrophils % 54.1 APTT Sodium Potassium Chloride Carbon Dioxide Anion Gap BUN Creatinine Est GFR ( Amer) Est GFR (MDRD) Non-Af Glucose POC Glucose Hemoglobin A1c % 7.0 H Calcium Magnesium 1.8 Epi Cells (Wet Prep) Bacteria (Wet Prep) Trichomonas (Wet Prep) Vaginal WBC Vaginal RBC Vaginal Yeast Chlamydia DNA (PCR) N.gonorrhoeae DNA (PCR) 06/21/19 06/21/19 06/21/19 02:04 08:08 11:49 WBC RBC Hgb Hct MCV MCH MCHC RDW Plt Count Lymph % (Auto) [place] % (Auto) Eos % (Auto) Baso % (Auto) Absolute Neuts (auto) Absolute Lymphs (auto) Absolute Monos (auto) Absolute Eos (auto) Absolute Basos (auto) Seg Neutrophils % APTT 72.0 H Sodium Potassium Chloride Carbon Dioxide Anion Gap BUN Creatinine Est GFR ( Amer) Est GFR (MDRD) Non-Af Glucose POC Glucose 250 H 260 H Hemoglobin A1c % Calcium Magnesium Epi Cells (Wet Prep) Bacteria (Wet Prep) Trichomonas (Wet Prep) Vaginal WBC Vaginal RBC Vaginal Yeast Chlamydia DNA (PCR) N.gonorrhoeae DNA (PCR) 06/21/19 06/21/19 06/21/19 15:52 17:20 18:41 WBC RBC Hgb Hct MCV MCH MCHC RDW Plt Count Lymph % (Auto) [place] % (Auto) Eos % (Auto) Baso % (Auto) Absolute Neuts (auto) Absolute Lymphs (auto) Absolute Monos (auto) Absolute Eos (auto) Absolute Basos (auto) Seg Neutrophils % APTT Sodium 134.2 L Potassium 4.4 Chloride 99 Carbon Dioxide 25 Anion Gap 10 BUN 18 Creatinine 1.06 Est GFR ( Amer) > 60 Est GFR (MDRD) Non-Af 51 L Glucose 206 H POC Glucose 244 H Hemoglobin A1c % Calcium 8.9 Magnesium Epi Cells (Wet Prep) Cancelled Bacteria (Wet Prep) Cancelled Trichomonas (Wet Prep) Cancelled Vaginal WBC Cancelled Vaginal RBC Cancelled Vaginal Yeast Cancelled Chlamydia DNA (PCR) N.gonorrhoeae DNA (PCR) 06/21/19 06/21/19 06/21/19 18:41 20:40 21:04 WBC RBC Hgb Hct MCV MCH MCHC RDW Plt Count Lymph % (Auto) [place] % (Auto) Eos % (Auto) Baso % (Auto) Absolute Neuts (auto) Absolute Lymphs (auto) Absolute Monos (auto) Absolute Eos (auto) Absolute Basos (auto) Seg Neutrophils % APTT Sodium Potassium Chloride Carbon Dioxide Anion Gap BUN Creatinine Est GFR ( Amer) Est GFR (MDRD) Non-Af Glucose POC Glucose 209 H Hemoglobin A1c % Calcium Magnesium Epi Cells (Wet Prep) 3+ EPITHELIALS SEEN Bacteria (Wet Prep) 3+ BACTERIA SEEN Trichomonas (Wet Prep) NO TRICHOMONAS SEEN Vaginal WBC 4+ WBCS SEEN Vaginal RBC 3+ RBCS SEEN Vaginal Yeast NO YEAST SEEN Chlamydia DNA (PCR) NOT DETECTED N.gonorrhoeae DNA (PCR) NOT DETECTED Abdomen/Pelvis CT 06/20/19 00:00 IMPRESSION: Imaging is degraded by patient motion, with resultant artifact. The best possible images were obtained. No central pulmonary embolus. Chronic parenchymal lung change. No acute intrathoracic process. Inflammatory changes identified within the pelvis. There also appears to be acute uncomplicated diverticulitis of the sigmoid colon. 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 Chest/Abdomen CTA 06/20/19 00:00 IMPRESSION: Imaging is degraded by patient motion, with resultant artifact. The best possible images were obtained. No central pulmonary embolus. Chronic parenchymal lung change. No acute intrathoracic process. Inflammatory changes identified within the pelvis. There also appears to be acute uncomplicated diverticulitis of the sigmoid colon. 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 Chest X-Ray 06/20/19 12:08 IMPRESSION: No evidence of acute cardiopulmonary process. IMPRESSION/RECOMMENDATION: 1. Paroxysmal atrial fibrillation: The patient presents in sinus rhythm. We will stop the patient's IV Cardizem and start the patient on Lopressor 50 mg p.o. every 12 hours. We will stop the patient's heparin and start the patient on Eliquis. We will also stop the patient's IV fluids. We will ambulate the patient. 2. CORRECTED CHUY VASC -2 score: One-point for age, one-point for hypertension, one-point for diabetes, and one-point for being female. The patient's corrected Chuy Vascor is 4 hence definitely needs chronic anticoagulation therapy. 3. Dehydration: We will give the patient to 50 mL of normal saline and start the patient on lactated Ringer at 100 mL/h. 4. Electrolyte imbalance: Current the patient has hypomagnesemia and hypokalemia. This is being done. We will recheck the levels in the a.m. 5. Hypertension: Blood pressure stable. 6. Diabetes mellitus: Continue antidiabetic treatment and Accu-Cheks as per protocol. 7. Acute diverticulitis: Antibiotics being added. 8. Morbid obesity: This will be later addressed as an outpatient Patient reviewed. Multiple medications adjusted. Medical decision making is of high complexity. Medical regimen and management plan discussed with attending provider on the case. 40 minutes spent as patient more than 50% time spent in direct patient care. Will follow.
[2019-06-22] MEDS: MEROPENEM 1 GM in NORMAL SALINE 50 ML IV SCH ×2 (05:09→06:24)
[2019-06-22 06:30] LABS: ABSOLUTE BASOPHILS # (AUTO) 0.1 10^3/uL (0.0-0.2); ABSOLUTE EOSINOPHILS # (AUTO) 0.1 10^3/uL (0.0-0.6); ABSOLUTE LYMPHOCYTES (AUTO) 2.6 10^3/uL (0.5-4.7); ABSOLUTE MONOCYTES (AUTO) 0.6 10^3/uL (0.1-1.4); ABSOLUTE NEUT (AUTO) 3.1 10^3/uL (1.7-8.2); BASOPHILS % (AUTO) 1.3 % (0-2); EOSINOPHILS % (AUTO) 1.5 % (0-6); HEMATOCRIT 30.4 % (36.0-47.0); HEMOGLOBIN 9.8 g/dL (12.0-15.5); MEAN CORPUSCULAR HEMOGLOBIN 25.1 pg (27.0-33.4); MEAN CORPUSCULAR HGB CONC 32.3 g/dL (32.0-36.0); MEAN CORPUSCULAR VOLUME 78 fl (80-97); MONOCYTES % (AUTO) 9.2 % (3-13); PLATELET COUNT 360 10^3/uL (150-450); RED CELL DISTRIBUTION WIDTH 17.3 % (11.5-14.0); TOTAL CELLS COUNTED % (AUTO) 100 %; WHITE BLOOD COUNT 6.4 10^3/uL (4.0-10.5)
[2019-06-22 07:00] LABS: APPEARANCE,URINE CLOUDY; BILIRUBIN,URINE NEGATIVE (NEGATIVE); COLOR,URINE YELLOW; GLUCOSE, URINE NEGATIVE (NEGATIVE); KETONES,URINE NEGATIVE (NEGATIVE); LEUKOCYTE ESTERASE,URINE LARGE (NEGATIVE); NITRITE,URINE NEGATIVE (NEGATIVE); PROTEIN,URINE 30 mg/dL (NEGATIVE); URINE SPECIFIC GRAVITY 1.008; UROBILINOGEN,URINE NEGATIVE mg/dL (<2.0)
[2019-06-22] MEDS ORDERED: GLYBURIDE 2.5 MG TABLET PO SCH (08:00)
[2019-06-22] MEDS: INSULIN LISPRO 100 UNIT/ML 3 ML VIAL SUBCUT SCH (08:58)
[2019-06-22] MEDS: HYDROCHLOROTHIAZIDE 25 MG TABLET PO SCH (09:12)
[2019-06-22] MEDS: METOPROLOL TARTRATE 50 MG TABLET PO SCH (09:13)
[2019-06-22] MEDS: NIFEDIPINE 30 MG TAB.ER.24 PO SCH (09:13)
[2019-06-22] MEDS: LISINOPRIL 10 MG TABLET PO SCH (09:13)
[2019-06-22] MEDS ORDERED: NIFEDIPINE 30 MG TAB.ER.24 PO SCH (10:00)
--- NOTE | 2019-06-22 11:30 | PDOC DISCHARGE SUMMARY ---
Impression - Admit/DC Date/PCP Admission Date/Primary Care Provider: 06/20/19 18:50 RC RIOS MD Discharge Date: 06/22/19 - Discharge Diagnosis (1) Paroxysmal atrial fibrillation with rapid ventricular response Is this a current diagnosis for this admission?: Yes (2) Acute diverticulitis Is this a current diagnosis for this admission?: Yes (3) Lymphocele Is this a current diagnosis for this admission?: Yes (4) Drug allergy, antibiotic Is this a current diagnosis for this admission?: Yes (5) HTN (hypertension) Is this a current diagnosis for this admission?: Yes (6) T2DM (type 2 diabetes mellitus) Is this a current diagnosis for this admission?: Yes (7) Vaginal discharge, bloody Is this a current diagnosis for this admission?: Yes - Additional Information Resuscitation Status: Full Code Discharge Diet: As Tolerated Referrals: MYRA SEBASTIAN MD [ACTIVE STAFF] - 06/28/19 10:15 am BASILIA CASTRO MD [ACTIVE STAFF] - 07/02/19 12:30 pm WALDO TURNER MD [ACTIVE STAFF] - 06/27/19 1:30 pm (-only one person over the age of 18 can accomodate you to this appointment. -if you any cough, fever or respiratory problems arise, call office to reschedule. -Bring ID card and insurance cards to appointment.) Prescriptions: Apixaban [Eliquis 5 mg Tablet] 5 mg PO Q12 #60 tablet Metronidazole [Flagyl 500 mg Tablet] 500 mg PO TID 8 Days tablet Cephalexin Monohydrate [Keflex 500 mg Capsule] 500 mg PO TID 8 Days capsule Lisinopril 20 mg PO Q12 #60 Metoprolol Tartrate [Lopressor 50 mg Tablet] 50 mg PO Q12 #60 tablet Home Medications: Aspirin [Ecotrin 81 mg EC Tablet] 81 mg PO QAM 05/15/15 Glyburide [Diabeta] 2.5 mg PO BID 05/15/15 Hydrochlorothiazide 25 mg PO QAM 05/15/15 Metformin HCl [Glucophage 500 mg Tablet] 500 mg PO BID 06/20/19 Apixaban [Eliquis 5 mg Tablet] 5 mg PO Q12 #60 tablet 06/22/19 Cephalexin Monohydrate [Keflex 500 mg Capsule] 500 mg PO TID 8 Days capsule 06/22/19 Lisinopril 20 mg PO Q12 #60 06/22/19 Metoprolol Tartrate [Lopressor 50 mg Tablet] 50 mg PO Q12 #60 tablet 06/22/19 Metronidazole [Flagyl 500 mg Tablet] 500 mg PO TID 8 Days tablet 06/22/19 History of Present Illiness History of Present Illness: According to admitting provider: ED FIGUEROA is a 69 year old female with past medical history significant for HTN, T2 DM, multiple antibiotic allergies who presented with 1 day history of progressive palpitations and shortness of breath which occurred approximately 11 AM today. Patient states she has had episodes of heart racing in the past when she ate soy or when she was given an antibiotic she is allergic to. On arrival to ED, patient was noted to have A. fib on EKG with rates in the 140s to 150s. She was given multiple boluses of diltiazem and placed on diltiazem drip unfortunately her heart rate remained in the mid to upper 130s. Dr. Castro was consulted and he recommended continuing to correct the patient's magnesium which was low and also adding a dose of digoxin. On my exam, patient seems to have actually converted from A. fib to SVT. Blood pressure stable in the 130s over 100s. Patient states she recently completed a 10-day course of antibiotics for supposed UTI prescribed by her PCP. This was prompted by patient complaining of brownish/grayish vaginal discharge which came on suddenly in the last week of May. The first antibiotic course did not improve things and patient was given a second antibiotic course which she started 1 day prior to admission and this included Macrobid and Flagyl. She has not noted any improvement on this. Patient has had a hysterectomy for fibroids in her 20s however she also states she had a transvaginal ultrasound recently that showed an unspecified pelvic mass. She was scheduled for a CT abdomen/pelvis with and without contrast next month however we can get this done here and hopefully get some answers as to what the etiology of this pelvic masses. Patient managed to stepdown unit with telemetry. Hospital Course Hospital Course: Patient was admitted to the hospital for treatment of her new onset atrial fibrillation with rapid ventricular response. Patient was started on metoprolol and heparin drip. She was later transitioned to Eliquis. Her heart rate has remained controlled and she has converted back into normal sinus rhythm. She she was evaluated by quenching car operator Dr. Richardson and has been scheduled a follow-up appointment with him. Also noted to be hypertensive and her lisinopril was adjusted. Patient also had abdominal CT as part of work-up. She had initially complained of vaginal discharge which were later turned pinkish. STD screen was negative. Patient had followed up with her press operator [employer] Dr. Waldo Turner who had recommended CT after questionable finding on pelvic ultrasound. CT of the abdomen and pelvis was performed which did not show any pelvic mass but did reveal acute diverticulitis. It also revealed a cystic lesion in the retroperitoneum. Patient was evaluated by surgery who discussed findings with radiologist and recommended no surgical intervention. According to the documented conversation, the retroperitoneal mass appears to be more likely to be a lymphocele and not a solid mass. Follow-up imaging in 3 to 6 months has been recommended. Regarding patient's diverticulitis patient was initially on Flagyl then meropenem and has been transitioned to p.o. Keflex and Flagyl for 8 more days. Surgery recommended no surgical intervention is needed as there is no abscess and has recommended follow-up with gastroenterology for colonoscopy after treatment is completed. Patient will also be following up with Dr. Turner for further management of her vaginal discharge. I have personally called the office today and ensured that follow-up appointment has been arranged. Follow- ups have also been arranged for cardiology and gastroenterology. Physical Exam Vital Signs: Temp Pulse Resp BP Pulse Ox 97.6 F 64 18 150/66 H 98 06/22/19 07:44 06/22/19 07:44 06/22/19 07:44 06/22/19 07:44 06/22/19 07:44 Intake & Output 06/21/19 06/22/19 06/23/19 06:59 06:59 06:59 Intake Total 1680 1875 Balance 1680 1875 Weight 168.1 kg 169.2 kg General appearance: PRESENT: no acute distress, cooperative Neck exam: ABSENT: JVD Respiratory exam: PRESENT: unlabored. ABSENT: accessory muscle use, retraction GI/Abdominal exam: ABSENT: distended Neurological exam: PRESENT: alert, awake, oriented to person, oriented to place, oriented to time Psychiatric exam: PRESENT: normal mood Focused psych exam: ABSENT: pressured speech Skin exam: ABSENT: jaundice Results Laboratory Results: WBC 6.4 10^3/uL (4.0-10.5) 06/22/19 05:47 RBC 3.90 10^6/uL (3.72-5.28) 06/22/19 05:47 Hgb 9.8 g/dL (12.0-15.5) L 06/22/19 05:47 Hct 30.4 % (36.0-47.0) L 06/22/19 05:47 MCV 78 fl (80-97) L 06/22/19 05:47 MCH 25.1 pg (27.0-33.4) L 06/22/19 05:47 MCHC 32.3 g/dL (32.0-36.0) 06/22/19 05:47 RDW 17.3 % (11.5-14.0) H 06/22/19 05:47 Plt Count 360 10^3/uL (150-450) 06/22/19 05:47 Lymph % (Auto) 40.0 % (13-45) 06/22/19 05:47 [place] % (Auto) 9.2 % (3-13) 06/22/19 05:47 Eos % (Auto) 1.5 % (0-6) 06/22/19 05:47 Baso % (Auto) 1.3 % (0-2) 06/22/19 05:47 Absolute Neuts (auto) 3.1 10^3/uL (1.7-8.2) 06/22/19 05:47 Absolute Lymphs (auto) 2.6 10^3/uL (0.5-4.7) 06/22/19 05:47 Absolute Monos (auto) 0.6 10^3/uL (0.1-1.4) 06/22/19 05:47 Absolute Eos (auto) 0.1 10^3/uL (0.0-0.6) 06/22/19 05:47 Absolute Basos (auto) 0.1 10^3/uL (0.0-0.2) 06/22/19 05:47 Seg Neutrophils % 48.0 % (42-78) 06/22/19 05:47 PT 14.8 SEC (11.4-15.4) 06/20/19 18:40 INR 1.16 06/20/19 18:40 APTT 31.3 SEC (23.5-35.8) 06/22/19 05:47 Sodium 134.2 mmol/L (137-145) L 06/21/19 17:20 Potassium 4.4 mmol/L (3.6-5.0) 06/21/19 17:20 Chloride 99 mmol/L (98-107) 06/21/19 17:20 Carbon Dioxide 25 mmol/L (22-30) 06/21/19 17:20 Anion Gap 10 (5-19) 06/21/19 17:20 BUN 18 mg/dL (7-20) 06/21/19 17:20 Creatinine 1.06 mg/dL (0.52-1.25) 06/21/19 17:20 Est GFR ( Amer) > 60 (>60) 06/21/19 17:20 Est GFR (MDRD) Non-Af 51 (>60) L 06/21/19 17:20 Glucose 206 mg/dL (75-110) H 06/21/19 17:20 POC Glucose 174 mg/dL (70-110) H 06/22/19 07:43 Hemoglobin A1c % 7.0 % (4.7-6.0) H 06/21/19 02:04 Calcium 8.9 mg/dL (8.4-10.2) 06/21/19 17:20 Magnesium 1.8 mg/dL (1.6-2.3) 06/21/19 02:04 Total Bilirubin 0.4 mg/dL (0.2-1.3) 06/20/19 12:27 Direct Bilirubin 0.1 mg/dL (0.0-0.4) 06/20/19 12:27 Neonat Total Bilirubin Not Reportable 06/20/19 12:27 Neonat Direct Bilirubin Not Reportable 06/20/19 12:27 Neonat Indirect Bili Not Reportable 06/20/19 12:27 AST 36 U/L (14-36) 06/20/19 12:27 ALT 23 U/L (<35) 06/20/19 12:27 Alkaline Phosphatase 100 U/L (38-126) 06/20/19 12:27 Troponin I < 0.012 ng/mL 06/20/19 12:27 NT-Pro-B Natriuret Pep 370 pg/mL (<125) H 06/20/19 12:27 Total Protein 8.0 g/dL (6.3-8.2) 06/20/19 12:27 Albumin 4.0 g/dL (3.5-5.0) 06/20/19 12:27 Lipase 116.2 U/L (23-300) 06/20/19 12:27 TSH 1.38 uIU/mL (0.47-4.68) 06/20/19 18:40 Free T4 1.64 ng/dL (0.78-2.19) 06/20/19 18:40 Urine Color YELLOW 06/22/19 06:20 Urine Appearance CLOUDY 06/22/19 06:20 Urine pH 6.0 (5.0-9.0) 06/22/19 06:20 Ur Specific [place] 1.008 06/22/19 06:20 Urine Protein 30 mg/dL (NEGATIVE) H 06/22/19 06:20 Urine Glucose (UA) NEGATIVE mg/dL (NEGATIVE) 06/22/19 06:20 Urine Ketones NEGATIVE mg/dL (NEGATIVE) 06/22/19 06:20 Urine Blood LARGE (NEGATIVE) H 06/22/19 06:20 Urine Nitrite NEGATIVE (NEGATIVE) 06/22/19 06:20 Urine Bilirubin NEGATIVE (NEGATIVE) 06/22/19 06:20 Urine Urobilinogen NEGATIVE mg/dL (<2.0) 06/22/19 06:20 Ur Leukocyte Esterase LARGE (NEGATIVE) H 06/22/19 06:20 Urine WBC (Auto) >182 /HPF 06/22/19 06:20 Urine RBC (Auto) 10 /HPF 06/22/19 06:20 Urine Bacteria (Auto) 1+ /HPF 06/22/19 06:20 Urine WBC Clumps MANY /HPF 06/22/19 06:20 Squamous Epi Cells Auto 3 /HPF 06/22/19 06:20 U Non-Squamous Epis Auto 1 /HPF 06/22/19 06:20 Urine Mucus (Auto) RARE /LPF 06/22/19 06:20 Urine Ascorbic Acid NEGATIVE (NEGATIVE) 06/22/19 06:20 Epi Cells (Wet Prep) 3+ EPITHELIALS SEEN 06/21/19 20:40 Bacteria (Wet Prep) 3+ BACTERIA SEEN 06/21/19 20:40 Trichomonas (Wet Prep) NO TRICHOMONAS SEEN 06/21/19 20:40 Vaginal WBC 4+ WBCS SEEN 06/21/19 20:40 Vaginal RBC 3+ RBCS SEEN 06/21/19 20:40 Vaginal Yeast NO YEAST SEEN 06/21/19 20:40 Urine Opiates Screen NEGATIVE 06/20/19 12:27 Urine Methadone Screen NEGATIVE 06/20/19 12:27 Ur Barbiturates Screen NEGATIVE 06/20/19 12:27 Ur Phencyclidine Scrn NEGATIVE 06/20/19 12:27 Ur Amphetamines Screen NEGATIVE 06/20/19 12:27 U Benzodiazepines Scrn NEGATIVE 06/20/19 12:27 Urine Cocaine Screen NEGATIVE 06/20/19 12:27 U Marijuana (THC) Screen NEGATIVE 06/20/19 12:27 Chlamydia DNA (PCR) NOT DETECTED (NOT DETECT) 06/21/19 18:41 N.gonorrhoeae DNA (PCR) NOT DETECTED (NOT DETECT) 06/21/19 18:41 06/20/19 12:27 Troponin I < 0.012 NT-Pro-B Natriuret Pep 370 H Impressions: Abdomen/Pelvis CT 06/20/19 00:00 IMPRESSION: Imaging is degraded by patient motion, with resultant artifact. The best possible images were obtained. No central pulmonary embolus. Chronic parenchymal lung change. No acute intrathoracic process. Inflammatory changes identified within the pelvis. There also appears to be acute uncomplicated diverticulitis of the sigmoid colon. 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 Chest/Abdomen CTA 06/20/19 00:00 IMPRESSION: Imaging is degraded by patient motion, with resultant artifact. The best possible images were obtained. No central pulmonary embolus. Chronic parenchymal lung change. No acute intrathoracic process. Inflammatory changes identified within the pelvis. There also appears to be acute uncomplicated diverticulitis of the sigmoid colon. 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 Chest X-Ray 06/20/19 12:08 IMPRESSION: No evidence of acute cardiopulmonary process. Plan Time Spent: Greater than 30 Minutes Stroke Is this a Stroke Patient?: No Acute Heart Failure - Is this a Heart Failure Patient?: No
[2019-06-22 11:59] VITALS: BP 165/74
== END 2019-06-22 13:21 | disposition home or self-care (01) | DRG 309 ==
LOC: ER 11:54 → EH 18:50 → 3W 20:59
PROVIDERS: ADMIT Internal Medicine; ATTEND Internal Medicine
DX: I48.0 Paroxysmal atrial fibrillation (principal); K57.32 Diverticulitis of large intestine without perforation or abscess without bleeding; I89.8 Other specified noninfective disorders of lymphatic vessels and lymph nodes; I10 Essential (primary) hypertension; E11.9 Type 2 diabetes mellitus without complications; Z88.2 Allergy status to sulfonamides; Z88.0 Allergy status to penicillin; Z88.1 Allergy status to other antibiotic agents; N89.8 Other specified noninflammatory disorders of vagina; Z79.84 Long term (current) use of oral hypoglycemic drugs; E66.01 Morbid (severe) obesity due to excess calories; E86.0 Dehydration; Z90.710 Acquired absence of both cervix and uterus; Z79.899 Other long term (current) drug therapy
CPT/HCPCS: 36415; 71045; 71275; 74177; 80048; 80053; 80307; 81001; 82962; 83036; 83690; 83735; 83880; 84439; 84443; 84484; 85025; 85610; 85730; 87040; 87210; 87491; 87591; 93005; 93010; 93306; 96365; 96375; 96376; 99285; J0360; J1160; J1644; J2185; J3475; J3490; J7050; J7120

== ENCOUNTER 2019-06-24 05:50 | Emergency (ER) | payer MEDICARE, BC ==
[2019-06-24 06:15] VITALS: BP 170/68
--- NOTE | 2019-06-24 07:04 | ER Document Report ---
ED General - General Chief Complaint: Vaginal Bleeding Stated Complaint: VAGINAL BLEEDING Time Seen by Provider: 06/24/19 07:00 Primary Care Provider: RC RIOS MD [Primary Care Provider] - Follow up as needed Mode of Arrival: Ambulatory Information source: Patient Notes: triagre note Pt presents to ED with vaginal bleeding with very large blood clot starting just prior to arrival. Pt states she was recently admitted to [facility] for atrial fibrillation and started on anticoagulants and antibiotics for vaginal discharge. At that time, the discharge was clear or johnson in color. Pt reports discharge started around May 29. Pt reports no pain or cramping with discharge. Pt is alert and oriented and ambulates without assistance. Pt currently lives at home with her . SBP 170 at this time. Pt reports no pain. MD to be informed of elevated blood pressure. my notes 69-year-old female with chief complaint of vaginal bleeding. Patient advises she awoke with urge to urinate around 0 515 and at 0 525 passed a silver dollar sized blood clot which she brings stored in a paper towel and her pocketbook. The vaginal bleeding was associated with a twinge of pain around suprapubic area. Patient reports she had a SIMONE when she was 26 years old and this left her with a intact cervix and one ovary. Patient just was discharged on [address] Mcdonough because of A. fib with RVR female pelvic mass diabetes diverticulitis is found on CT hypertension and vaginal discharge with bleeding. Patient was placed on Eliquis 5 mg and aspirin and Keflex Flagyl and continue with glyburide/metformin HCTZ lisinopril and metformin Patient arrives today with 170/68 blood pressure but otherwise vital signs within normal limits. Patient has some negative feedback about taking blood thinners. 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 She has been followed by Dr. Adams DESIGN ENGINEERING SPECIALIST and saw him on 19 May. She had been taking Macrobid and Flagyl since 28 April x2 weeks. The new medications include metoprolol and Keflex and Eliquis. She was apprehensive about taking Keflex because she is highly allergic to penicillin. She did take it however and had no adverse effects for the last 2 days. TRAVEL OUTSIDE OF THE [place] IN LAST 30 DAYS: No - HPI Onset: This morning Onset/Duration: Sudden Quality of pain: Achy Severity: Mild Pain Level: 1 Associated symptoms: None Exacerbated by: Denies Relieved by: Denies Similar symptoms previously: Yes Recently seen / treated by doctor: Yes - Related Data Allergies/Adverse Reactions: acesulfame [Acesulfame] Allergy (Severe, Verified 05/15/15 15:34) rapid heartbeat, extreme high blood pressure caffeine [Caffeine] Allergy (Severe, Verified 05/15/15 15:29) extreme high blood pressure, rapid heartbeat Penicillins Allergy (Severe, Verified 05/15/15 15:20) high fever, blister at injection site soy [Soy] Allergy (Severe, Verified 05/15/15 15:29) extreme high blood pressure, rapid heart rate Sulfa (Sulfonamide Antibiotics) Allergy (Severe, Verified 05/15/15 15:20) extreme high blood pressure, rapid heartbeat ciprofloxacin [From Cipro] Allergy (Verified 06/20/19 12:08) Home Medications: metformin 500mg 2 pills twice a day. gliburide. metoprolol. eliquis. lisinopril 20mg daily. flagyl. cephalexin Past Medical History - General Information source: Patient Last Menstrual Period: N/A - Social History Smoking Status: Never Smoker Cigarette use (# per day): No Chew tobacco use (# tins/day): No Smoking Education Provided: No Frequency of alcohol use: None Drug Abuse: None Lives with: Family Family History: Reviewed & Not Pertinent Patient has suicidal ideation: No Patient has homicidal ideation: No - Past Medical History Cardiac Medical History: Reports: Hx Atrial Fibrillation, Hx Hypertension Denies: Hx Coronary Artery Disease, Hx Heart Attack Pulmonary Medical History: Denies: Hx Asthma, Hx Bronchitis, Hx COPD, Hx Pneumonia Neurological Medical History: Denies: Hx Cerebrovascular Accident, Hx Seizures Endocrine Medical History: Reports: Hx Diabetes Mellitus Type 2 Renal/ Medical History: Denies: Hx Peritoneal Dialysis GI Medical History: Reports: Hx Diverticulitis Musculoskeletal Medical History: Denies Hx Arthritis Psychiatric Medical History: Denies: Hx Depression Past Surgical History: Reports: Hx Hysterectomy, Hx Orthopedic Surgery - Immunizations Hx Diphtheria, Pertussis, Tetanus Vaccination: Yes - feb 2015 Hx Pneumococcal Vaccination: 02/14/15 Review of Systems - Review of Systems Constitutional: No symptoms reported EENT: No symptoms reported Cardiovascular: No symptoms reported Respiratory: No symptoms reported Gastrointestinal: No symptoms reported Genitourinary: See HPI, Pain Female Genitourinary: See HPI, Vaginal bleeding Musculoskeletal: No symptoms reported Skin: No symptoms reported Hematologic/Lymphatic: No symptoms reported Neurological/Psychological: No symptoms reported Physical Exam - Vital signs Vitals: Temp 97.5 F 06/24/19 05:51 Interpretation: Hypertensive - General General appearance: Alert, Anxious - HEENT Head: Normocephalic, Atraumatic Eyes: Normal Pupils: PERRL Mouth/Lips: Normal Mucous membranes: Normal Pharynx: Normal Neck: Normal - Respiratory Respiratory status: No respiratory distress Chest status: Nontender Breath sounds: Normal Chest palpation: Normal - Cardiovascular Rhythm: Regular Heart sounds: Normal auscultation Murmur: No - Abdominal Inspection: Normal Distension: No distension Bowel sounds: Normal Tenderness: Nontender Organomegaly: No organomegaly - Genitourinary External exam: Normal, Other - examined with tech Karishma at 0820 Speculum exam: Other - Dark red probably vaginal bleeding along 3:00 area posterior vault. No obvious site despite swabbing with large cotton swabs. Vaginal bleeding: Mild - Back Back: Normal - Extremities General upper extremity: Normal inspection General lower extremity: Normal inspection - Neurological Neuro grossly intact: Yes Cognition: Normal Orientation: AAOx4 Boissevain Coma Scale Eye Opening: Spontaneous Boissevain Coma Scale Verbal: Oriented Ary Coma Scale Motor: Obeys Commands Boissevain Coma Scale Total: 15 Speech: Normal Motor strength normal: LUE, RUE, LLE, RLE Sensory: Normal - Psychological Associated symptoms: Anxious - Skin Skin Temperature: Warm Skin Moisture: Dry Course - Vital Signs Vital signs: Temp Pulse Resp BP Pulse Ox 98.6 F 69 18 170/68 H 100 06/24/19 06:11 06/24/19 06:11 06/24/19 06:11 06/24/19 06:11 06/24/19 06:11 - Laboratory Result Diagrams: 06/24/19 07:40 Laboratory results interpreted by me: 06/24/19 06/24/19 07:00 07:40 Hgb 10.2 L Hct 31.8 L MCV 79 L MCH 25.3 L RDW 17.0 H Plt Count 455 H Urine Protein 30 H Urine Blood LARGE H Ur Leukocyte Esterase LARGE H - Diagnostic Test Radiology reviewed: Reports reviewed Critical Care Note - Critical Care Note Total time excluding time spent on procedures (mins): 90 Comments: I informed patient of her ultrasound and lab reports. At 0 940 Discharge - Discharge Clinical Impression: Atrial fibrillation with rapid ventricular response, Vaginal discharge, bloody, vaginal clots, on blood thinners Eloquis HTN (hypertension) Qualifiers: Hypertension type: unspecified Qualified Code(s): I10 - Essential (primary) hypertension Vaginitis Qualifiers: Chronicity: acute Qualified Code(s): N76.0 - Acute vaginitis Condition: Good Disposition: HOME, SELF-CARE Additional Instructions: Follow-up with Dr. Adams; return to ER as needed; take medicines as directed; you may want to hold your Eliquis blood thinner until you speak with top collar baster and personal doctor tomorrow. Also speak with Dr. Adams about this as well. Prescriptions: Doxycycline Monohydrate 100 mg PO BID #20 capsule Metronidazole [Metrogel] 1 applic VG HSP PRN #55 gel.w.pump PRN Reason: Referrals: RC RIOS MD [Primary Care Provider] - Follow up as needed
[2019-06-24 07:21] LABS: APPEARANCE,URINE SLIGHTLY-CLOUDY; BILIRUBIN,URINE NEGATIVE (NEGATIVE); COLOR,URINE YELLOW; GLUCOSE, URINE NEGATIVE (NEGATIVE); KETONES,URINE NEGATIVE (NEGATIVE); LEUKOCYTE ESTERASE,URINE LARGE (NEGATIVE); NITRITE,URINE NEGATIVE (NEGATIVE); PROTEIN,URINE 30 mg/dL (NEGATIVE); URINE SPECIFIC GRAVITY 1.006; UROBILINOGEN,URINE NEGATIVE mg/dL (<2.0)
[2019-06-24 07:53] LABS: ABSOLUTE EOSINOPHILS # (AUTO) 0.1 10^3/uL (0.0-0.6); ABSOLUTE LYMPHOCYTES (AUTO) 2.9 10^3/uL (0.5-4.7); ABSOLUTE MONOCYTES (AUTO) 0.5 10^3/uL (0.1-1.4); BASOPHILS % (AUTO) 0.4 % (0-2); HEMATOCRIT 31.8 % (36.0-47.0); HEMOGLOBIN 10.2 g/dL (12.0-15.5); LYMPHOCYTES % (AUTO) 33.6 % (13-45); MEAN CORPUSCULAR HEMOGLOBIN 25.3 pg (27.0-33.4); MEAN CORPUSCULAR HGB CONC 32.2 g/dL (32.0-36.0); MEAN CORPUSCULAR VOLUME 79 fl (80-97); MONOCYTES % (AUTO) 6.1 % (3-13); PLATELET COUNT 455 10^3/uL (150-450); RED BLOOD COUNT 4.05 10^6/uL (3.72-5.28); SEGMENTED NEUTROPHILS % (AUTO) 58.9 % (42-78); TOTAL CELLS COUNTED % (AUTO) 100 %; WHITE BLOOD COUNT 8.5 10^3/uL (4.0-10.5)
[2019-06-24 07:56] LABS: INTERNATIONAL RATION (INR) 1.04; PARTIAL THROMBOPLASTIN TIME 33.1 SEC (23.5-35.8); PROTHROMBIN TIME 13.6 SEC (11.4-15.4)
--- NOTE | 2019-06-24 09:11 | RADIOLOGY REPORT (SQ) ---
EXAM DESCRIPTION: U/S NON-OB PELVIS TV W/O DOP IMAGES COMPLETED DATE/TIME: 06/24/2019 9:01 am REASON FOR STUDY: vag bleeding COMPARISON: None. TECHNIQUE: Dynamic and static grayscale images acquired of the pelvis via transvaginal approach and recorded on PACS. Additional selected color Doppler and spectral images recorded. LIMITATIONS: None. FINDINGS: UTERUS: Hysterectomy. RIGHT OVARY AND DOPPLER: Oophorectomy. LEFT OVARY AND DOPPLER: Ovary not visualized. FREE FLUID: None noted. OTHER: No other significant finding. IMPRESSION: Hysterectomy and oophorectomy. Left ovary not visualized. TECHNICAL DOCUMENTATION: JOB ID: [id number] 2010 [employer]- All Rights Reserved Rev-07/01 Reading location - IP/workstation name: [email or web address]
== END 2019-06-24 10:15 | disposition home or self-care (01) ==
LOC: ER 05:50
DX: I48.20 Chronic atrial fibrillation, unspecified (principal); N76.0 Acute vaginitis; N93.8 Other specified abnormal uterine and vaginal bleeding; I10 Essential (primary) hypertension; E11.9 Type 2 diabetes mellitus without complications; Z79.02 Long term (current) use of antithrombotics/antiplatelets; Z90.710 Acquired absence of both cervix and uterus; Z79.84 Long term (current) use of oral hypoglycemic drugs; Z88.0 Allergy status to penicillin; Z88.2 Allergy status to sulfonamides; Z88.3 Allergy status to other anti-infective agents
CPT/HCPCS: 36415; 76830; 81001; 85025; 85610; 85730; 99285

== ENCOUNTER 2019-06-24 19:45 | Inpatient (IN) | payer MEDICARE, BC ==
--- NOTE | 2019-06-24 20:44 | ER Document Report ---
ED GI/ - General Chief Complaint: Vaginal Bleeding Stated Complaint: VAGINAL AND RECTAL BLEEDING Time Seen by Provider: 06/24/19 20:41 Notes: Patient is a 69-year-old female who presents to the emergency department with a chief complaint of vaginal bleeding and rectal bleeding. Patient states that she was seen here in the emergency department for vaginal bleeding, which she ended up passing a Silver dollar size clot around 5:00 in the morning. Patient also states that she has pain in her suprapubic area. Patient was started on Eliquis last night by her public relations player. Patient was recently admitted for atrial fibrillation. Patient states that her last dose of Eliquis was last night. Patient went home with a prescription for doxycycline and MetroGel today, but has not started them. Patient states that she and bleeding 3 times a t home and ended up having "small grains of what looks like sand" in her bleeding. TRAVEL OUTSIDE OF THE [place] IN LAST 30 DAYS: No - Related Data Allergies/Adverse Reactions: acesulfame [Acesulfame] Allergy (Severe, Verified 05/15/15 15:34) rapid heartbeat, extreme high blood pressure caffeine [Caffeine] Allergy (Severe, Verified 05/15/15 15:29) extreme high blood pressure, rapid heartbeat Penicillins Allergy (Severe, Verified 05/15/15 15:20) high fever, blister at injection site soy [Soy] Allergy (Severe, Verified 05/15/15 15:29) extreme high blood pressure, rapid heart rate Sulfa (Sulfonamide Antibiotics) Allergy (Severe, Verified 05/15/15 15:20) extreme high blood pressure, rapid heartbeat ciprofloxacin [From Cipro] Allergy (Verified 06/20/19 12:08) Past Medical History - Social History Smoking Status: Never Smoker Chew tobacco use (# tins/day): No Frequency of alcohol use: None Drug Abuse: None Family History: Reviewed & Not Pertinent Patient has homicidal ideation: No - Past Medical History Cardiac Medical History: Reports: Hx Atrial Fibrillation, Hx Hypertension Denies: Hx Coronary Artery Disease, Hx Heart Attack Pulmonary Medical History: Denies: Hx Asthma, Hx Bronchitis, Hx COPD, Hx Pneumonia Neurological Medical History: Denies: Hx Cerebrovascular Accident, Hx Seizures Endocrine Medical History: Reports: Hx Diabetes Mellitus Type 2 Renal/ Medical History: Denies: Hx Peritoneal Dialysis GI Medical History: Reports: Hx Diverticulitis Musculoskeletal Medical History: Denies Hx Arthritis Psychiatric Medical History: Denies: Hx Depression Past Surgical History: Reports: Hx Hysterectomy, Hx Orthopedic Surgery - Immunizations Hx Diphtheria, Pertussis, Tetanus Vaccination: Yes - feb 2015 Hx Pneumococcal Vaccination: 02/14/15 Review of Systems - Review of Systems Notes: REVIEW OF SYSTEMS: CONSTITUTIONAL : Denies recent illness. Denies recent unintentional weight loss. Denies fever, chills, or sweats. EENT: Denies eye, ear, throat, or mouth pain, discharge, or symptoms. Denies nasal or sinus congestion. CARDIOVASCULAR: Denies chest pain. RESPIRATORY: Denies shortness of breath, cough, congestion, difficulty breathing, or wheezing. GASTROINTESTINAL: Denies nausea, vomiting, and diarrhea. Denies abdominal pain. Denies constipation. GENITOURINARY: Denies difficulty urinating, burning, blood in urine, urgency or frequency. FEMALE GENITOURINARY: See HPI. MUSCULOSKELETAL: Denies neck and back pain. Denies joint pain or swelling. SKIN: Denies rash, itchiness, or lesions HEMATOLOGIC : Denies easy bruising or bleeding. LYMPHATIC: Denies swollen, painful, enlarged glands. NEUROLOGICAL: Denies no numbness or tingling denies weakness. Denies headache. Denies altered mental status. Denies alteration in speech. PSYCHIATRIC: Denies stress, anxiety, alteration in sleep patterns, or depression. All other systems reviewed and negative. Physical Exam - Vital signs Vitals: Temp Pulse Resp BP Pulse Ox 98.6 F 72 16 201/99 H 96 06/24/19 19:53 06/24/19 19:53 06/24/19 19:53 06/24/19 19:53 06/24/19 19:53 - Notes Notes: PHYSICAL EXAMINATION: GENERAL: Appears well, healthy, well-nourished, no acute distress. HEAD: Normocephalic, atraumatic. EYES: PERRL, conjunctiva normal, all extraocular movements intact, sclera nonicteric ENT: Moist mucous membranes. NECK: Supple, no noticeable swelling, redness, rash. Normal range of motion. LUNGS: Equal breath sounds bilaterally and clear to auscultation. No wheezes rales or rhonchi. CARDIOVASCULAR: S1-S2, regular rate, regular rhythm. Radial pulses 2+, normal. ABDOMEN: Normoactive bowel sounds. Soft, nontender, no guarding, no rebound tenderness, and no masses palpated. EXTREMITIES: Normal strength and range of motion, no pitting or edema. No cyanosis. NEUROLOGICAL: Moves all extremities upon command. Strength 5/5 in all extremities. PSYCH: Normal mood, normal affect. SKIN: Warm, dry. No rash, lesions, ulcerations noted. Normal skin turgor. SOCKET PULLER: Moderate amount of vaginal bleeding noted. RECTAL: No micah blood noted, but positive occult stool reading. Course - Re-evaluation Re-evalutation: 06/24/19 22:22 Rectal exam done with JOHN Purdy at bedside. Hemoccult positive. Patient also had vaginal exam done. Patient did have some bleeding from that area. 06/24/19 23:00 Chemistries are unremarkable. Hemoglobin is 10.2 and hematocrit is 31.2. This is not a significant difference in her labs from earlier, but due to new rectal bleeding, I will speak with Dr. Yan, the surgeion digital media sales consultant. 06/24/19 23:[address] Yan, surgical is digital media sales consultant. He will follow the patient. 06/24/19 23:[address] Hernandez, hospitalist. Patient will be admitted to the telemetry floor for further workup. - Vital Signs Vital signs: Temp Pulse Resp BP Pulse Ox 98.4 F 63 16 145/68 H 97 06/25/19 16:04 06/25/19 16:04 06/25/19 16:04 06/25/19 16:04 06/25/19 16:04 - Laboratory Result Diagrams: 06/25/19 04:49 06/25/19 04:49 Laboratory results interpreted by me: 06/24/19 06/24/19 20:37 20:37 Hgb 10.2 L Hct 31.2 L MCV 79 L MCH 25.8 L RDW 16.9 H Plt Count 506 H Sodium 135.0 L Glucose 207 H Discharge - Discharge Clinical Impression: Vaginal bleeding GI bleed Qualifiers: GI bleed type/associated pathology: anorectal hemorrhage Qualified Code(s): K62.5 - Hemorrhage of anus and rectum Condition: Stable Disposition: ADMITTED INPATIENT Admitting Provider: David (Hospitalist) Unit Admitted: Telemetry
[2019-06-24 20:52] LABS: ABSOLUTE BASOPHILS # (AUTO) 0.1 10^3/uL (0.0-0.2); ABSOLUTE EOSINOPHILS # (AUTO) 0.1 10^3/uL (0.0-0.6); ABSOLUTE LYMPHOCYTES (AUTO) 3.8 10^3/uL (0.5-4.7); ABSOLUTE MONOCYTES (AUTO) 0.6 10^3/uL (0.1-1.4); BASOPHILS % (AUTO) 0.5 % (0-2); EOSINOPHILS % (AUTO) 0.8 % (0-6); HEMATOCRIT 31.2 % (36.0-47.0); HEMOGLOBIN 10.2 g/dL (12.0-15.5); LYMPHOCYTES % (AUTO) 39.9 % (13-45); MEAN CORPUSCULAR HEMOGLOBIN 25.8 pg (27.0-33.4); MEAN CORPUSCULAR HGB CONC 32.8 g/dL (32.0-36.0); MEAN CORPUSCULAR VOLUME 79 fl (80-97); MONOCYTES % (AUTO) 6.5 % (3-13); PLATELET COUNT 506 10^3/uL (150-450); RED BLOOD COUNT 3.96 10^6/uL (3.72-5.28); RED CELL DISTRIBUTION WIDTH 16.9 % (11.5-14.0); SEGMENTED NEUTROPHILS % (AUTO) 52.3 % (42-78); TOTAL CELLS COUNTED % (AUTO) 100 %; WHITE BLOOD COUNT 9.6 10^3/uL (4.0-10.5)
[2019-06-24 21:02] LABS: INTERNATIONAL RATION (INR) 1.07
[2019-06-24 21:03] LABS: PARTIAL THROMBOPLASTIN TIME 29.8 SEC (23.5-35.8)
[2019-06-24 21:10] LABS: ALBUMIN 3.9 g/dL (3.5-5.0); ALKALINE PHOSPHATASE 82 U/L (38-126); ANION GAP 9 (5-19); ASPARTATE AMINO TRANSFERASE 23 U/L (14-36); BILIRUBIN,TOTAL 0.3 mg/dL (0.2-1.3); BLOOD UREA NITROGEN 16 mg/dL (7-20); CALCIUM 9.1 mg/dL (8.4-10.2); CARBON DIOXIDE 26 mmol/L (22-30); CHLORIDE 100 mmol/L (98-107); GLUCOSE 207 mg/dL (75-110); POTASSIUM 4.5 mmol/L (3.6-5.0); TOTAL PROTEIN 7.7 g/dL (6.3-8.2)
[2019-06-24] MEDS ORDERED: ACETAMINOPHEN 325 MG TABLET PO PRN (23:13)
[2019-06-24] MEDS ORDERED: MAG HYDROX/AL HYDROX/SIMETH SUSP 30 ML UDCUP PO PRN (23:13)
[2019-06-24] MEDS ORDERED: IPRATROPIUM/ALBUTEROL 0.5-2.5 MG/3 ML AMPUL NEB PRN (23:13)
[2019-06-24] MEDS ORDERED: ONDANSETRON HCL INJ/PF 4 MG/2 ML SDV IV PRN (23:13)
[2019-06-24] MEDS ORDERED: IRON SUCROSE COMPLEX INJ/PF 100 MG/5 ML SDV IV ONE ×2 (23:18→23:56)
[2019-06-24 23:45] LABS: ABSOLUTE RETICS # 0.048 10^6/uL (0.028-0.122); RETICULOCYTE COUNT (AUTO) 1.21 % (0.66-2.85)
[2019-06-24] MEDS ORDERED: IRON SUCROSE COMPLEX 300 MG in NORMAL SALINE 250 ML IV ONE (23:45)
--- NOTE | 2019-06-24 23:46 | PDOC CONSULTATION ---
Consultation Consult Date: 06/24/19 Attending physician:: DESTINY ALMONTE Provider Consulted: YURI URIOSTEGUI Consult reason:: lower gi bleed History of Present Illness Admission Date/PCP: 06/24/19 23:17 RC RIOS MD History of Present Illness: ED FIGUEROA is a 69 year old femalePatient is a 69-year-old female who presents to the emergency department with a chief complaint of vaginal bleeding and rectal bleeding. Patient states that she was seen here in the emergency department for vaginal bleeding, which she ended up passing a Adams size clot around 5:00 in the morning. Patient also states that she has pain in her suprapubic area. Patient was started on Eliquis last night by her transportation planning technician. Patient was recently admitted for atrial fibrillation. Patient states that her last dose of Eliquis was last night. Patient went home with a prescription for doxycycline and MetroGel today, but has not started them. Patient states that she and bleeding 3 times at home and ended up having "small grains of what looks like sand" in her bleeding Past Medical History Cardiac Medical History: Reports: Atrial Fibrillation, Hypertension Denies: Coronary Artery Disease, Myocardial Infarction Pulmonary Medical History: Denies: Asthma, Bronchitis, Chronic Obstructive Pulmonary Disease (COPD), Pneumonia Neurological Medical History: Denies: Seizures Endocrine Medical History: Reports: Diabetes Mellitus Type 2 GI Medical History: Reports: Diverticulitis Musculoskeltal Medical History: Denies: Arthritis Psychiatric Medical History: Denies: Depression Hematology: Reports: Anemia - hx Past Surgical History Past Surgical History: Reports: Hysterectomy, Orthopedic Surgery Social History Smoking Status: Never Smoker Electronic Cigarette use?: No Frequency of Alcohol Use: None Hx Recreational Drug Use: No Hx Prescription Drug Abuse: No Family History Family History: Reviewed & Not Pertinent Parental Family History Reviewed: No Children Family History Reviewed: NA Sibling(s) Family History Reviewed.: NA Medication/Allergy Home Medications: Aspirin [Ecotrin 81 mg EC Tablet] 81 mg PO QAM 05/15/15 Glyburide [Diabeta] 2.5 mg PO BID 05/15/15 Hydrochlorothiazide 25 mg PO QAM 05/15/15 Metformin HCl [Glucophage 500 mg Tablet] 500 mg PO BID 06/20/19 Apixaban [Eliquis 5 mg Tablet] 5 mg PO Q12 #60 tablet 06/22/19 Cephalexin Monohydrate [Keflex 500 mg Capsule] 500 mg PO TID 8 Days capsule 0 06/22/19 Lisinopril 20 mg PO Q12 #60 06/22/19 Metoprolol Tartrate [Lopressor 50 mg Tablet] 50 mg PO Q12 #60 tablet 06/22/19 Metronidazole [Flagyl 500 mg Tablet] 500 mg PO TID 8 Days tablet 06/22/19 Doxycycline Monohydrate 100 mg PO BID #20 capsule 06/24/19 Metronidazole [Metrogel] 1 applic VG [facility] PRN #55 gel.w.pump 06/24/19 Allergies/Adverse Reactions: acesulfame [Acesulfame] Allergy (Severe, Verified 05/15/15 15:34) rapid heartbeat, extreme high blood pressure caffeine [Caffeine] Allergy (Severe, Verified 05/15/15 15:29) extreme high blood pressure, rapid heartbeat Penicillins Allergy (Severe, Verified 05/15/15 15:20) high fever, blister at injection site soy [Soy] Allergy (Severe, Verified 05/15/15 15:29) extreme high blood pressure, rapid heart rate Sulfa (Sulfonamide Antibiotics) Allergy (Severe, Verified 05/15/15 15:20) extreme high blood pressure, rapid heartbeat ciprofloxacin [From Cipro] Allergy (Verified 06/20/19 12:08) Review of Systems Constitutional: PRESENT: weakness. ABSENT: as per HPI, anorexia, chills, fatigue, fever(s), headache(s), night sweats, weight gain, weight loss, other Eyes: ABSENT: as per HPI, visual disturbances, other Ears: ABSENT: as per HPI, hearing changes, other Nose, Mouth, and Throat: ABSENT: as per HPI, headache(s), mouth pain, sore throat, vertigo, other Breasts: ABSENT: as per HPI, other Cardiovascular: ABSENT: as per HPI, chest pain, dyspnea on exertion, edema, orthropnea, palpitations, other Respiratory: ABSENT: as per HPI, cough, dyspnea, hemoptysis, sputum, other Gastrointestinal: ABSENT: as per HPI, abdominal pain, bloating, coffee ground emesis, constipation, diarrhea, dysphagia, heartburn, hematemesis, hematochezia, melena, nausea, vomiting, other Musculoskeletal: ABSENT: as per HPI, back pain, deformity, joint swelling, muscle weakness, other Integumentary: ABSENT: as per HPI, diaphoresis, erythema, lesions, pruritus, rash, wounds, other Neurological: ABSENT: as per HPI, abnormal gait, abnormal movements, abnormal speech, confusion, convulsions, dizziness, focal weakness, frequent falls, lack of coordination, memory loss, numbness, paresthesias, restless legs, syncope, tingling, tremor(s), vertigo, weakness, other Psychiatric: ABSENT: as per HPI, anxiety, depression, hallucinations, homidical ideation, suicidal ideation, other Endocrine: ABSENT: as per HPI, cold intolerance, flushing, heat intolerance, menstrual abnormalities, polydipsia, polyphagia, polyuria, other Hematologic/Lymphatic: ABSENT: as per HPI, easy bleeding, easy bruising, lymphadenopathy, other Allergic/Immunologic: ABSENT: as per HPI, seasonal rhinorrhea, other Physical Exam Vital Signs: Temp Pulse Resp BP Pulse Ox 98.6 F 72 16 181/91 H 96 06/24/19 20:12 06/24/19 19:53 06/24/19 19:53 06/24/19 20:44 06/24/19 19:53 Intake & Output 06/23/19 06/24/19 06/25/19 06:59 06:59 06:59 Weight 130.181 kg General appearance: PRESENT: no acute distress Head exam: PRESENT: normocephalic Eye exam: PRESENT: EOMI Ear exam: PRESENT: normal external ear exam Mouth exam: PRESENT: moist Teeth exam: ABSENT: dental caries, dental tenderness, edentulous, poor dentati on, other Throat exam: ABSENT: post pharyngeal erythema, tonsillar erythema, tonsillar exudate, tonsillogmegaly, other Neck exam: ABSENT: carotid bruit, full ROM, JVD, lymphadenopathy, meningismus, tenderness, thyromegaly, tracheal deviation, tracheostomy, other Respiratory exam: PRESENT: clear to auscultation keren Cardiovascular exam: PRESENT: RRR Pulses: PRESENT: normal radial pulses, normal femoral pulses Vascular exam: PRESENT: normal capillary refill Breast: PRESENT: Normal GI/Abdominal exam: PRESENT: soft, tenderness - mild suprapubic tenderness Rectal exam: PRESENT: deferred Gentrourinary exam: ABSENT: ecchymosis, erythema, lacerations, lesions, scrotal swelling, testicular tenderness, urethral discharge, indwelling catheter, other Extremities exam: ABSENT: calf tenderness, clubbing, full ROM, joint swelling, pedal edema, tenderness, +1 edema, +2 edema, other Musculoskeletal exam: ABSENT: ambulatory, deformity, dislocation, full ROM, normal inspection, tenderness, other Neurological exam: PRESENT: alert, awake, oriented to person, oriented to place Psychiatric exam: ABSENT: agitated, anxious, appropriate affect, depressed, flat affect, homicidal ideation, manic, normal mood, suicidal ideation, unusual affect, other Focused psych exam: ABSENT: catatonic, delusional, euphoric, flight of ideas, internal stimuli, paranoid, pressured speech, psychomotor agitation, restlessness, other Skin exam: ABSENT: abrasion, cyanosis, dry, erythema, intact, jaundice, mottled, normal color, pallor, petechiae, rash, skin tears, urticaria, vesicles, warm, other Results Laboratory Results: 06/24/19 20:37 06/24/19 20:37 06/24/19 06/24/19 06/24/19 20:37 20:37 20:37 WBC 9.6 RBC 3.96 Hgb 10.2 L Hct 31.2 L MCV 79 L MCH 25.8 L MCHC 32.8 RDW 16.9 H Plt Count 506 H Seg Neutrophils % 52.3 Sodium 135.0 L Potassium 4.5 Chloride 100 Carbon Dioxide 26 Anion Gap 9 BUN 16 Creatinine 0.84 Est GFR ( Amer) > 60 Glucose 207 H Calcium 9.1 Total Bilirubin 0.3 AST 23 Alkaline Phosphatase 82 Total Protein 7.7 Albumin 3.9 Blood Type O NEGATIVE Antibody Screen NEGATIVE Assessment & Plan - Plan Summary Plan Summary: pt with know diverticulitis, was on oral abx also started on elliquis for new onset a-fib prior to discharge has small blood per rectum but was discharged 'continued to bleed and returned here with continued blood clots current hct stable and onlyhaving intermittent hematochezia recommend due to diverticulitis, pt not candidate for colonoscopy at this time would admit to medicine and hold elliquis and] transfuse as necessary if bleeding continues consideration of ir intervention vs surgery.
[2019-06-24] MEDS ORDERED: IRON SUCROSE COMPLEX INJ/PF 100 MG/5 ML SDV IV PRN (23:47)
[2019-06-25] MEDS ORDERED: IRON SUCROSE COMPLEX INJ/PF 100 MG/5 ML SDV IV ONE (00:12)
[2019-06-25 00:49] LABS: IRON(TIBC) 42.4 ug/dL (37-170)
[2019-06-25] MEDS ORDERED: HYDRALAZINE HCL INJ/PF 20 MG/1 ML SDV IV PRN (01:39)
[2019-06-25] MEDS: NORMAL SALINE 1000 ML 1,000 ML IV PRN ×2 (01:58→09:24)
[2019-06-25] MEDS ORDERED: DEXTROSE 40% GEL 15 GM TUBE PO PRN (02:00)
[2019-06-25] MEDS ORDERED: DEXTROSE 50%-WATER SYRINGE 25 GM/50 ML DOSE IV PRN (02:00)
[2019-06-25] MEDS ORDERED: GLUCAGON,HUMAN RECOMB 1 MG INJ IM PRN (02:00)
[2019-06-25] MEDS ORDERED: DEXTROSE 50%-WATER SYRINGE 12.5 GM/25 ML DOSE IV PRN (02:00)
[2019-06-25] MEDS ORDERED: DEXTROSE 40% GEL 15 GM TUBE X 2 PO PRN (02:00)
[2019-06-25 03:29] LABS: APPEARANCE,URINE CLOUDY; BILIRUBIN,URINE NEGATIVE (NEGATIVE); COLOR,URINE AMBER; GLUCOSE, URINE NEGATIVE (NEGATIVE); KETONES,URINE NEGATIVE (NEGATIVE); LEUKOCYTE ESTERASE,URINE LARGE (NEGATIVE); NITRITE,URINE NEGATIVE (NEGATIVE); PROTEIN,URINE 30 mg/dL (NEGATIVE); URINE SPECIFIC GRAVITY 1.018; UROBILINOGEN,URINE NEGATIVE mg/dL (<2.0)
[2019-06-25] MEDS ORDERED: ERTAPENEM SODIUM INJ 1 GM VIAL IV PRN (03:59)
[2019-06-25] MEDS ORDERED: ERTAPENEM SODIUM 1 GM in NORMAL SALINE 50 ML IV ONE (04:00)
--- NOTE | 2019-06-25 04:04 | PDOC H&P ---
History of Present Illness Admission Date/PCP: 06/24/19 23:17 RC RIOS MD Patient complains of: Bleeding History of Present Illness: ED FIGUEROA is a 69 year old female with a past medical history of morbid obesity, diabetes, hypertension, diverticulitis, status post hysterectomy. Patient was discharged from acute care hospital setting 4 days ago with urinary tract infection, new onset atrial fibrillation and started on Eliquis, doxycycline and MetroGel. She presents with 12 hours of suprapubic pain vaginal and rectal bleeding. In the emergency department she has a microcytic anemia and pyuria. And referred to the hospitalist for admission. She denies recent [facility] exam yet has intact cervix. Past Medical History Cardiac Medical History: Reports: Atrial Fibrillation, Hypertension Denies: Coronary Artery Disease, Myocardial Infarction Pulmonary Medical History: Denies: Asthma, Bronchitis, Chronic Obstructive Pulmonary Disease (COPD), Pneumonia Neurological Medical History: Denies: Seizures Endocrine Medical History: Reports: Diabetes Mellitus Type 2 GI Medical History: Reports: Diverticulitis Musculoskeltal Medical History: Denies: Arthritis Psychiatric Medical History: Denies: Depression Hematology: Reports: Anemia - hx Past Surgical History Past Surgical History: Reports: Hysterectomy, Orthopedic Surgery Social History Information Source: Patient Smoking Status: Never Smoker Electronic Cigarette use?: No Frequency of Alcohol Use: None Hx Recreational Drug Use: No Hx Prescription Drug Abuse: No - Advance Directive Resuscitation Status: Full Code Family History Family History: Hypertension Parental Family History Reviewed: Yes Children Family History Reviewed: Yes Sibling(s) Family History Reviewed.: Yes Medication/Allergy Home Medications: Aspirin [Ecotrin 81 mg EC Tablet] 81 mg PO QAM 05/15/15 Glyburide [Diabeta] 2.5 mg PO BID 05/15/15 Hydrochlorothiazide 25 mg PO QAM 05/15/15 Metformin HCl [Glucophage 500 mg Tablet] 500 mg PO BID 06/20/19 Apixaban [Eliquis 5 mg Tablet] 5 mg PO Q12 #60 tablet 06/22/19 Cephalexin Monohydrate [Keflex 500 mg Capsule] 500 mg PO TID 8 Days capsule 06/22/19 Lisinopril 20 mg PO Q12 #60 06/22/19 Metoprolol Tartrate [Lopressor 50 mg Tablet] 50 mg PO Q12 #60 tablet 06/22/19 Metronidazole [Flagyl 500 mg Tablet] 500 mg PO TID 8 Days tablet 06/22/19 Doxycycline Monohydrate 100 mg PO BID #20 capsule 06/24/19 Metronidazole [Metrogel] [address] [facility] PRN #55 gel.w.pump 06/24/19 Allergies/Adverse Reactions: acesulfame [Acesulfame] Allergy (Severe, Verified 05/15/15 15:34) rapid heartbeat, extreme high blood pressure caffeine [Caffeine] Allergy (Severe, Verified 05/15/15 15:29) extreme high blood pressure, rapid heartbeat Penicillins Allergy (Severe, Verified 05/15/15 15:20) high fever, blister at injection site soy [Soy] Allergy (Severe, Verified 05/15/15 15:29) extreme high blood pressure, rapid heart rate Sulfa (Sulfonamide Antibiotics) Allergy (Severe, Verified 05/15/15 15:20) extreme high blood pressure, rapid heartbeat ciprofloxacin [From Cipro] Allergy (Verified 06/20/19 12:08) Review of Systems Constitutional: ABSENT: chills, fever(s), headache(s), weight gain, weight loss Eyes: ABSENT: visual disturbances Ears: ABSENT: hearing changes Cardiovascular: ABSENT: chest pain, dyspnea on exertion, edema, orthropnea, palpitations Respiratory: ABSENT: cough, hemoptysis Gastrointestinal: ABSENT: abdominal pain, constipation, diarrhea, hematemesis, hematochezia, nausea, vomiting Genitourinary: ABSENT: dysuria, hematuria Musculoskeletal: ABSENT: joint swelling Integumentary: ABSENT: rash, wounds Neurological: ABSENT: abnormal gait, abnormal speech, confusion, dizziness, focal weakness, syncope Psychiatric: ABSENT: anxiety, depression, homidical ideation, suicidal ideation Endocrine: ABSENT: cold intolerance, heat intolerance, polydipsia, polyuria Hematologic/Lymphatic: ABSENT: easy bleeding, easy bruising Physical Exam Vital Signs: Temp Pulse Resp BP Pulse Ox 97.4 F 64 17 177/75 H 98 06/25/19 01:21 06/25/19 01:37 06/25/19 01:21 06/25/19 01:21 06/25/19 01:21 Intake & Output 06/23/19 06/24/19 06/25/19 11:59 11:59 11:59 Intake Total 265 Balance 265 Weight 130.181 kg General appearance: PRESENT: no acute distress, well-developed, well-nourished Head exam: PRESENT: atraumatic, normocephalic Eye exam: PRESENT: conjunctiva pink, EOMI, PERRLA. ABSENT: scleral icterus Ear exam: PRESENT: normal external ear exam Mouth exam: PRESENT: moist, tongue midline Neck exam: ABSENT: carotid bruit, JVD, lymphadenopathy, thyromegaly Respiratory exam: PRESENT: clear to auscultation keren. ABSENT: rales, rhonchi, wheezes Cardiovascular exam: PRESENT: RRR. ABSENT: diastolic murmur, rubs, systolic murmur Pulses: PRESENT: normal dorsalis pedis pul Vascular exam: PRESENT: normal capillary refill GI/Abdominal exam: PRESENT: normal bowel sounds, soft. ABSENT: distended, gua rding, mass, organolmegaly, rebound, tenderness Rectal exam: PRESENT: deferred Extremities exam: PRESENT: full ROM. ABSENT: calf tenderness, clubbing, pedal edema Neurological exam: PRESENT: alert, awake, oriented to person, oriented to place, oriented to time, oriented to situation, CN II-XII grossly intact. ABSENT: dennis r sensory deficit Psychiatric exam: PRESENT: appropriate affect, normal mood. ABSENT: homicidal ideation, suicidal ideation Skin exam: PRESENT: dry, intact, warm. ABSENT: cyanosis, rash Results Laboratory Results: 06/24/19 20:37 06/24/19 20:37 06/24/19 06/24/19 06/24/19 20:37 20:37 20:37 WBC 9.6 RBC 3.96 Hgb 10.2 L Hct 31.2 L MCV 79 L MCH 25.8 L MCHC 32.8 RDW 16.9 H Plt Count 506 H Seg Neutrophils % 52.3 Retic Count (auto) Sodium 135.0 L Potassium 4.5 Chloride 100 Carbon Dioxide 26 Anion Gap 9 BUN 16 Creatinine 0.84 Est GFR ( Amer) > 60 Glucose 207 H Calcium 9.1 Iron TIBC % Saturation Transferrin Ferritin Total Bilirubin 0.3 AST 23 Alkaline Phosphatase 82 Total Protein 7.7 Albumin 3.9 Vitamin B12 Folate Urine Color Urine Appearance Urine pH Ur Specific [place] Urine Protein Urine Glucose (UA) Urine Ketones Urine Blood Urine Nitrite Ur Leukocyte Esterase Urine WBC (Auto) Urine RBC (Auto) Blood Type O NEGATIVE Antibody Screen NEGATIVE 06/24/19 06/24/19 06/24/19 20:37 20:37 20:37 WBC RBC Hgb Hct MCV MCH MCHC RDW Plt Count Seg Neutrophils % Retic Count (auto) 1.21 Sodium Potassium Chloride Carbon Dioxide Anion Gap BUN Creatinine Est GFR ( Amer) Glucose Calcium Iron 42.4 TIBC 312 % Saturation 14 Transferrin 236.87 Ferritin 46.00 Total Bilirubin AST Alkaline Phosphatase Total Protein Albumin Vitamin B12 806.0 Folate 19.60 Urine Color Urine Appearance Urine pH Ur Specific [place] Urine Protein Urine Glucose (UA) Urine Ketones Urine Blood Urine Nitrite Ur Leukocyte Esterase Urine WBC (Auto) Urine RBC (Auto) Blood Type Antibody Screen 06/25/19 03:00 WBC RBC Hgb Hct MCV MCH MCHC RDW Plt Count Seg Neutrophils % Retic Count (auto) Sodium Potassium Chloride Carbon Dioxide Anion Gap BUN Creatinine Est GFR ( Amer) Glucose Calcium Iron TIBC % Saturation Transferrin Ferritin Total Bilirubin AST Alkaline Phosphatase Total Protein Albumin Vitamin B12 Folate Urine Color ROXANN Urine Appearance CLOUDY Urine pH 6.0 Ur Specific [place] 1.018 Urine Protein 30 H Urine Glucose (UA) NEGATIVE Urine Ketones NEGATIVE Urine Blood LARGE H Urine Nitrite NEGATIVE Ur Leukocyte Esterase LARGE H Urine WBC (Auto) >182 Urine RBC (Auto) >182 Blood Type Antibody Screen Assessment and Plan - Diagnosis (1) GI bleed Qualifiers: GI bleed type/associated pathology: unspecified gastrointestinal hemorrhage type Qualified Code(s): K92.2 - Gastrointestinal hemorrhage, unspecified Is this a current diagnosis for this admission?: Yes Plan: Patient developed loose stools after antibiotic use. Painless and therefore most likely diverticular bleed complicated by initiation of Eliquis. Eliquis d iscontinued, follow-up CBC, transfuse hemoglobin less than 7 follow-up surgical consult. (2) Diabetes Is this a current diagnosis for this admission?: Yes Plan: Humalog sliding scale q. before meals (3) Vaginal bleeding Is this a current diagnosis for this admission?: Yes Plan: Complicated by hysterectomy and intact cervix, recent anticoagulation and urinary tract infection. Ertapenem for diverticulitis will likely cover. Follow-up blood and urine culture as well as [facility] consult. (4) Acute diverticulitis Is this a current diagnosis for this admission?: Yes Plan: Clear liquids, ertapenem, follow-up CBC and surgical consult (5) Atrial fibrillation with RVR Is this a current diagnosis for this admission?: Yes Plan: Currently in sinus rhythm, continue outpatient regiment with exception to Eliquis. - Time Time Spent with patient: 25-34 minutes - Inpatient Certification Medical Necessity: Need Close Monitoring Due to Risk of Patient Decompensation
[2019-06-25] MEDS ORDERED: ERTAPENEM SODIUM INJ 1 GM VIAL ONE (05:06)
[2019-06-25 05:44] LABS: ABSOLUTE BASOPHILS # (AUTO) 0.1 10^3/uL (0.0-0.2); ABSOLUTE EOSINOPHILS # (AUTO) 0.1 10^3/uL (0.0-0.6); ABSOLUTE LYMPHOCYTES (AUTO) 3.7 10^3/uL (0.5-4.7); ABSOLUTE MONOCYTES (AUTO) 0.6 10^3/uL (0.1-1.4); ABSOLUTE NEUT (AUTO) 6.3 10^3/uL (1.7-8.2); BASOPHILS % (AUTO) 1.1 % (0-2); EOSINOPHILS % (AUTO) 0.6 % (0-6); HEMATOCRIT 29.7 % (36.0-47.0); HEMOGLOBIN 9.6 g/dL (12.0-15.5); LYMPHOCYTES % (AUTO) 34.2 % (13-45); MEAN CORPUSCULAR HEMOGLOBIN 25.5 pg (27.0-33.4); MEAN CORPUSCULAR HGB CONC 32.5 g/dL (32.0-36.0); MEAN CORPUSCULAR VOLUME 79 fl (80-97); MONOCYTES % (AUTO) 5.7 % (3-13); PLATELET COUNT 456 10^3/uL (150-450); RED BLOOD COUNT 3.78 10^6/uL (3.72-5.28); RED CELL DISTRIBUTION WIDTH 16.9 % (11.5-14.0); SEGMENTED NEUTROPHILS % (AUTO) 58.4 % (42-78); TOTAL CELLS COUNTED % (AUTO) 100 %; WHITE BLOOD COUNT 10.8 10^3/uL (4.0-10.5)
[2019-06-25 06:07] LABS: ANION GAP 10 (5-19); BLOOD UREA NITROGEN 15 mg/dL (7-20); CALCIUM 9.2 mg/dL (8.4-10.2); CARBON DIOXIDE 23 mmol/L (22-30); CHLORIDE 103 mmol/L (98-107); GLUCOSE 189 mg/dL (75-110); POTASSIUM 4.6 mmol/L (3.6-5.0)
[2019-06-25] MEDS ORDERED: HYDROCHLOROTHIAZIDE 25 MG TABLET PO SCH (08:00)
[2019-06-25] MEDS: INSULIN LISPRO 100 UNIT/ML 3 ML VIAL SUBCUT SCH ×4 (09:21→23:16)
[2019-06-25] MEDS: LISINOPRIL 10 MG TABLET PO SCH ×2 (09:21→22:16)
--- NOTE | 2019-06-25 09:23 | PDOC PROGRESS REPORT ---
Subjective Progress Note for:: 06/25/19 Subjective:: 69-year-old female with a history of diverticulitis. She was started on anticoagulants related to atrial fibrillation. Shortly after starting her anticoagulants, she began to experience vaginal and rectal bleeding. Her last dose of anticoagulant was Tuesday (48 hours ago). Currently she denies any active bleeding. Her last bowel movement was earlier this morning. She believes there may have been a tiny amount of blood mixed in with the stool. There was no red blood noted, or clots. She denies fevers, chills, nausea, vomiting, abdominal pain, constipation, headache, dizziness, orthostasis, blurry vision. Reason For Visit: VAGINAL BLEEDING,GI BLEED Physical Exam Vital Signs: Temp Pulse Resp BP Pulse Ox 97.3 F 75 16 156/70 H 96 06/25/19 07:42 06/25/19 07:42 06/25/19 07:42 06/25/19 07:42 06/25/19 07:42 Intake & Output 06/24/19 06/25/19 06/26/19 06:59 06:59 06:59 Intake Total 315 Balance 315 Weight 128.5 kg General appearance: PRESENT: no acute distress, cooperative Head exam: PRESENT: atraumatic, normocephalic Eye exam: PRESENT: EOMI, PERRLA. ABSENT: scleral icterus Mouth exam: PRESENT: moist, neck supple Neck exam: ABSENT: meningismus, tenderness, thyromegaly, tracheal deviation, tracheostomy Respiratory exam: PRESENT: unlabored. ABSENT: chest wall tenderness, tachypnea, wheezes Cardiovascular exam: ABSENT: tachycardia GI/Abdominal exam: PRESENT: soft. ABSENT: distended, firm, guarding, tenderness Rectal exam: PRESENT: deferred Extremities exam: ABSENT: clubbing Musculoskeletal exam: ABSENT: deformity Neurological exam: PRESENT: alert, awake, oriented to person, oriented to place, oriented to time, oriented to situation, CN II-XII grossly intact Psychiatric exam: ABSENT: agitated, anxious, depressed Focused psych exam: ABSENT: delusional Skin exam: ABSENT: cyanosis, erythema, jaundice Results Laboratory Results: 06/25/19 04:49 06/25/19 04:49 06/24/19 06/24/19 06/24/19 20:37 20:37 20:37 WBC 9.6 RBC 3.96 Hgb 10.2 L Hct 31.2 L MCV 79 L MCH 25.8 L MCHC 32.8 RDW 16.9 H Plt Count 506 H Seg Neutrophils % 52.3 Retic Count (auto) Sodium 135.0 L Potassium 4.5 Chloride 100 Carbon Dioxide 26 Anion Gap 9 BUN 16 Creatinine 0.84 Est GFR ( Amer) > 60 Glucose 207 H Calcium 9.1 Iron TIBC % Saturation Transferrin Ferritin Total Bilirubin 0.3 AST 23 Alkaline Phosphatase 82 Total Protein 7.7 Albumin 3.9 Vitamin B12 Folate Urine Color Urine Appearance Urine pH Ur Specific [place] Urine Protein Urine Glucose (UA) Urine Ketones Urine Blood Urine Nitrite Ur Leukocyte Esterase Urine WBC (Auto) Urine RBC (Auto) Blood Type O NEGATIVE Antibody Screen NEGATIVE 06/24/19 06/24/19 06/24/19 20:37 20:37 20:37 WBC RBC Hgb Hct MCV MCH MCHC RDW Plt Count Seg Neutrophils % Retic Count (auto) 1.21 Sodium Potassium Chloride Carbon Dioxide Anion Gap BUN Creatinine Est GFR ( Amer) Glucose Calcium Iron 42.4 TIBC 312 % Saturation 14 Transferrin 236.87 Ferritin 46.00 Total Bilirubin AST Alkaline Phosphatase Total Protein Albumin Vitamin B12 806.0 Folate 19.60 Urine Color Urine Appearance Urine pH Ur Specific [place] Urine Protein Urine Glucose (UA) Urine Ketones Urine Blood Urine Nitrite Ur Leukocyte Esterase Urine WBC (Auto) Urine RBC (Auto) Blood Type Antibody Screen 06/25/19 06/25/19 06/25/19 03:00 04:49 04:49 WBC 10.8 H RBC 3.78 Hgb 9.6 L Hct 29.7 L MCV 79 L MCH 25.5 L MCHC 32.5 RDW 16.9 H Plt Count 456 H Seg Neutrophils % 58.4 Retic Count (auto) Sodium 136.0 L Potassium 4.6 Chloride 103 Carbon Dioxide 23 Anion Gap 10 BUN 15 Creatinine 0.75 Est GFR ( Amer) > 60 Glucose 189 H Calcium 9.2 Iron TIBC % Saturation Transferrin Ferritin Total Bilirubin AST Alkaline Phosphatase Total Protein Albumin Vitamin B12 Folate Urine Color ROXANN Urine Appearance CLOUDY Urine pH 6.0 Ur Specific [place] 1.018 Urine Protein 30 H Urine Glucose (UA) NEGATIVE Urine Ketones NEGATIVE Urine Blood LARGE H Urine Nitrite NEGATIVE Ur Leukocyte Esterase LARGE H Urine WBC (Auto) >182 Urine RBC (Auto) >182 Blood Type Antibody Screen Assessment & Plan - Diagnosis (1) GI bleed Qualifiers: GI bleed type/associated pathology: anorectal hemorrhage Qualified Code(s): K62.5 - Hemorrhage of anus and rectum Is this a current diagnosis for this admission?: Yes - Plan Summary Plan Summary: This is a 69-year-old female with GI and vaginal bleeding related to the initiation of anticoagulant therapy. The patient has discontinued her anticoagulants, and the bleeding has subsided. She does not appear to be overly symptomatic at this time. Her hemoglobin is 9. I would recommend the complete cessation of anticoagulants in the short-term. I have encouraged the patient to discuss the risks and benefits of anticoagulant therapy with her primary care provider. She should continue her antibiotics for her recent episode of diverticulitis. She sees Dr. Joel for colonoscopies. She will require a colonoscopy in approximately 6 weeks to ensure there is no evidence of malignan cy. No surgical intervention is required at this time. Surgery will sign off. Please renotify with any questions or concerns.
[2019-06-25] MEDS ORDERED: METOPROLOL TARTRATE 50 MG TABLET PO SCH (10:00)
--- NOTE | 2019-06-25 12:45 | PDOC CONSULTATION ---
Consultation Consult Date: 06/25/19 Attending physician:: DARIO TIWARI Provider Consulted: ANKUSH CARRANZA Consult reason:: vaginal bleeding History of Present Illness Admission Date/PCP: 06/24/19 23:17 RC RIOS MD Patient complains of: vaginal bleeding began on 06/23 after beginning eliquis History of Present Illness: ED FIGUEROA is a 69 year old female postmenopausal and s/p Supracervical Hysterectomy approximately 40yrs ago presents after beginning eliquis for Afib on Tuesday - only took one days dose - with vaginal and rectal bleeding. Pt reports did have large clots but now is decreasing. Scant bleeding unless voiding. Past Medical History Gynecological Infection: No Cardiac Medical History: Reports: Atrial Fibrillation, Hypertension Denies: Coronary Artery Disease, Myocardial Infarction Pulmonary Medical History: Denies: Asthma, Bronchitis, Chronic Obstructive Pulmonary Disease (COPD), Pneumonia Neurological Medical History: Denies: Seizures Endocrine Medical History: Reports: Diabetes Mellitus Type 2 GI Medical History: Reports: Diverticulitis Musculoskeltal Medical History: Denies: Arthritis Psychiatric Medical History: Denies: Depression Social History Information Source: Patient Lives with: Family Smoking Status: Never Smoker Electronic Cigarette use?: No Frequency of Alcohol Use: None Hx Recreational Drug Use: No Drugs: None Hx Prescription Drug Abuse: No - Advance Directive Resuscitation Status: Full Code Family History Family History: Reviewed & Not Pertinent Parental Family History Reviewed: No Children Family History Reviewed: NA Sibling(s) Family History Reviewed.: NA Medication/Allergy Home Medications: Aspirin [Ecotrin 81 mg EC Tablet] 81 mg PO QAM 05/15/15 Glyburide [Diabeta] 5 mg PO BID 05/15/15 Hydrochlorothiazide 25 mg PO QAM 05/15/15 Metformin HCl [Glucophage 500 mg Tablet] 1,000 mg PO BID 06/20/19 Apixaban [Eliquis 5 mg Tablet] 5 mg PO Q12 #60 tablet 06/22/19 Cephalexin Monohydrate [Keflex 500 mg Capsule] 500 mg PO TID 8 Days capsule 06/22/19 Lisinopril 20 mg PO Q12 #60 06/22/19 Metoprolol Tartrate [Lopressor 50 mg Tablet] 50 mg PO Q12 #60 tablet 06/22/19 Benazepril HCl [Lotensin] 40 mg PO DAILY 05/11/20 Rosuvastatin Calcium 5 mg PO DAILY 06/25/19 Allergies/Adverse Reactions: acesulfame [Acesulfame] Allergy (Severe, Verified 05/15/15 15:34) rapid heartbeat, extreme high blood pressure caffeine [Caffeine] Allergy (Severe, Verified 05/15/15 15:29) extreme high blood pressure, rapid heartbeat Penicillins Allergy (Severe, Verified 05/15/15 15:20) high fever, blister at injection site soy [Soy] Allergy (Severe, Verified 05/15/15 15:29) extreme high blood pressure, rapid heart rate Sulfa (Sulfonamide Antibiotics) Allergy (Severe, Verified 05/15/15 15:20) extreme high blood pressure, rapid heartbeat ciprofloxacin [From Cipro] Allergy (Verified 06/20/19 12:08) Physical Exam - Physical Exam Vital Signs: Temp Pulse Resp BP Pulse Ox 98.6 F 62 20 165/76 H 97 06/25/19 11:28 06/25/19 11:28 06/25/19 11:28 06/25/19 11:28 06/25/19 11:28 Intake & Output 06/24/19 06/25/19 06/26/19 06:59 06:59 06:59 Intake Total 1315 Balance 1315 Weight 128.5 kg General appearance: PRESENT: no acute distress, well-developed, well-nourished Head exam: PRESENT: atraumatic, normocephalic Respiratory exam: PRESENT: clear to auscultation keren, symmetrical, unlabored Cardiovascular exam: PRESENT: RRR. ABSENT: diastolic murmur, rubs, systolic murmur Pulses: PRESENT: normal dorsalis pedis pul, +2 pedal pulses bilateral GI/Abdominal exam: PRESENT: normal bowel sounds, soft. ABSENT: distended, guarding, mass, organolmegaly, rebound, tenderness Extremities exam: PRESENT: full ROM. ABSENT: calf tenderness, clubbing, pedal edema Neurological exam: PRESENT: alert, awake, oriented to person, oriented to place, oriented to time, oriented to situation, CN II-XII grossly intact. ABSENT: motor sensory deficit Psychiatric exam: PRESENT: appropriate affect, normal mood. ABSENT: homicidal ideation, suicidal ideation Skin exam: PRESENT: dry, intact, warm. ABSENT: cyanosis, rash - Gynecological Exam Labia: normal Perineum: normal, other - blood at perineum Vagina: other - mass in post cul de sac - feels post to vaginal cuff. No cervical opening palpable. blood in vault - bright red and old blood noted. Result Laboratory Results: 06/25/19 04:49 06/25/19 04:49 06/24/19 06/24/19 06/24/19 20:37 20:37 20:37 WBC 9.6 RBC 3.96 Hgb 10.2 L Hct 31.2 L MCV 79 L MCH 25.8 L MCHC 32.8 RDW 16.9 H Plt Count 506 H Seg Neutrophils % 52.3 Retic Count (auto) Sodium 135.0 L Potassium 4.5 Chloride 100 Carbon Dioxide 26 Anion Gap 9 BUN 16 Creatinine 0.84 Est GFR ( Amer) > 60 Glucose 207 H Calcium 9.1 Iron TIBC % Saturation Transferrin Ferritin Total Bilirubin 0.3 AST 23 Alkaline Phosphatase 82 Total Protein 7.7 Albumin 3.9 Vitamin B12 Folate Urine Color Urine Appearance Urine pH Ur Specific [place] Urine Protein Urine Glucose (UA) Urine Ketones Urine Blood Urine Nitrite Ur Leukocyte Esterase Urine WBC (Auto) Urine RBC (Auto) Blood Type O NEGATIVE Antibody Screen NEGATIVE 06/24/19 06/24/19 06/24/19 20:37 20:37 20:37 WBC RBC Hgb Hct MCV MCH MCHC RDW Plt Count Seg Neutrophils % Retic Count (auto) 1.21 Sodium Potassium Chloride Carbon Dioxide Anion Gap BUN Creatinine Est GFR ( Amer) Glucose Calcium Iron 42.4 TIBC 312 % Saturation 14 Transferrin 236.87 Ferritin 46.00 Total Bilirubin AST Alkaline Phosphatase Total Protein Albumin Vitamin B12 806.0 Folate 19.60 Urine Color Urine Appearance Urine pH Ur Specific [place] Urine Protein Urine Glucose (UA) Urine Ketones Urine Blood Urine Nitrite Ur Leukocyte Esterase Urine WBC (Auto) Urine RBC (Auto) Blood Type Antibody Screen 06/25/19 06/25/19 06/25/19 03:00 04:49 04:49 WBC 10.8 H RBC 3.78 Hgb 9.6 L Hct 29.7 L MCV 79 L MCH 25.5 L MCHC 32.5 RDW 16.9 H Plt Count 456 H Seg Neutrophils % 58.4 Retic Count (auto) Sodium 136.0 L Potassium 4.6 Chloride 103 Carbon Dioxide 23 Anion Gap 10 BUN 15 Creatinine 0.75 Est GFR ( Amer) > 60 Glucose 189 H Calcium 9.2 Iron TIBC % Saturation Transferrin Ferritin Total Bilirubin AST Alkaline Phosphatase Total Protein Albumin Vitamin B12 Folate Urine Color ROXANN Urine Appearance CLOUDY Urine pH 6.0 Ur Specific [place] 1.018 Urine Protein 30 H Urine Glucose (UA) NEGATIVE Urine Ketones NEGATIVE Urine Blood LARGE H Urine Nitrite NEGATIVE Ur Leukocyte Esterase LARGE H Urine WBC (Auto) >182 Urine RBC (Auto) >182 Blood Type Antibody Screen Assessment & Plan - Diagnosis (1) Vaginal bleeding Plan: Patient has history of supracervical hysterectomy many years ago. Being followed by Dr. Adams - with a known mass in the area of where her cervix should be- suspect that this is cervix but Dr. Adams was unable to see cervical os on exam on 06/18. She is now having PMB - unable to bx with no cervical os - will defer to office. If supracervical hysterectomy then bleeding could be coming from endometrial remnant in canal. She will be sent to [facility] for evaluation and management due to recent CT with possible metastatic disease noted. Appt with Dr. Adams on 06/26 at 1:30 pm In the interim will plan for patient to be on provera 20mg TID for 2 days then 20mg po daily. If patient has to be on Eliquis then will treat through her symptoms at this time. - Time Time Spent: 30 to 50 Minutes Critical Time spent with patient: Less than 15 minutes Anticipated discharge: Home Within: within 48 hours
--- NOTE | 2019-06-25 14:41 | PDOC PROGRESS REPORT ---
Subjective Progress Note for:: 06/25/19 Subjective:: Patient states that her breathing has improved today. Denies any l ightheadedness or dizziness. Denies any chest pain or shortness of breath. She also denies any abdominal pain. Reason For Visit: VAGINAL BLEEDING,GI BLEED Physical Exam Vital Signs: Temp Pulse Resp BP Pulse Ox 98.6 F 62 20 165/76 H 97 06/25/19 11:28 06/25/19 11:28 06/25/19 11:28 06/25/19 11:28 06/25/19 11:28 Intake & Output 06/24/19 06/25/19 06/26/19 06:59 06:59 06:59 Intake Total 1315 360 Balance 1315 360 Weight 128.5 kg General appearance: PRESENT: no acute distress, cooperative Head exam: PRESENT: normocephalic Neck exam: ABSENT: JVD Respiratory exam: PRESENT: unlabored Neurological exam: PRESENT: alert, awake, oriented to person, oriented to place, oriented to time, oriented to situation Results Laboratory Results: 06/25/19 04:49 06/25/19 04:49 06/24/19 06/24/19 06/24/19 20:37 20:37 20:37 WBC 9.6 RBC 3.96 Hgb 10.2 L Hct 31.2 L MCV 79 L MCH 25.8 L MCHC 32.8 RDW 16.9 H Plt Count 506 H Seg Neutrophils % 52.3 Retic Count (auto) Sodium 135.0 L Potassium 4.5 Chloride 100 Carbon Dioxide 26 Anion Gap 9 BUN 16 Creatinine 0.84 Est GFR ( Amer) > 60 Glucose 207 H Calcium 9.1 Iron TIBC % Saturation Transferrin Ferritin Total Bilirubin 0.3 AST 23 Alkaline Phosphatase 82 Total Protein 7.7 Albumin 3.9 Vitamin B12 Folate Urine Color Urine Appearance Urine pH Ur Specific [place] Urine Protein Urine Glucose (UA) Urine Ketones Urine Blood Urine Nitrite Ur Leukocyte Esterase Urine WBC (Auto) Urine RBC (Auto) Blood Type O NEGATIVE Antibody Screen NEGATIVE 06/24/19 06/24/19 06/24/19 20:37 20:37 20:37 WBC RBC Hgb Hct MCV MCH MCHC RDW Plt Count Seg Neutrophils % Retic Count (auto) 1.21 Sodium Potassium Chloride Carbon Dioxide Anion Gap BUN Creatinine Est GFR ( Amer) Glucose Calcium Iron 42.4 TIBC 312 % Saturation 14 Transferrin 236.87 Ferritin 46.00 Total Bilirubin AST Alkaline Phosphatase Total Protein Albumin Vitamin B12 806.0 Folate 19.60 Urine Color Urine Appearance Urine pH Ur Specific [place] Urine Protein Urine Glucose (UA) Urine Ketones Urine Blood Urine Nitrite Ur Leukocyte Esterase Urine WBC (Auto) Urine RBC (Auto) Blood Type Antibody Screen 06/25/19 06/25/19 06/25/19 03:00 04:49 04:49 WBC 10.8 H RBC 3.78 Hgb 9.6 L Hct 29.7 L MCV 79 L MCH 25.5 L MCHC 32.5 RDW 16.9 H Plt Count 456 H Seg Neutrophils % 58.4 Retic Count (auto) Sodium 136.0 L Potassium 4.6 Chloride 103 Carbon Dioxide 23 Anion Gap 10 BUN 15 Creatinine 0.75 Est GFR ( Amer) > 60 Glucose 189 H Calcium 9.2 Iron TIBC % Saturation Transferrin Ferritin Total Bilirubin AST Alkaline Phosphatase Total Protein Albumin Vitamin B12 Folate Urine Color ROXANN Urine Appearance CLOUDY Urine pH 6.0 Ur Specific [place] 1.018 Urine Protein 30 H Urine Glucose (UA) NEGATIVE Urine Ketones NEGATIVE Urine Blood LARGE H Urine Nitrite NEGATIVE Ur Leukocyte Esterase LARGE H Urine WBC (Auto) >182 Urine RBC (Auto) >182 Blood Type Antibody Screen Assessment and Plan - Diagnosis (1) Vaginal bleeding Is this a current diagnosis for this admission?: Yes Plan: Patient has history of supracervical hysterectomy many years ago. Being followed by Dr. Adams regarding patient's postmenopausal bleed. I had a conversation with Dr. Garcia today who will start patient on Provera to help suppress the bleed and have patient follow-up with Dr. Adams in the clinic tomorrow for which an appointment is already scheduled. (2) GI bleed Qualifiers: GI bleed type/associated pathology: anorectal hemorrhage Qualified Code(s): K62.5 - Hemorrhage of anus and rectum Is this a current diagnosis for this admission?: Yes Plan: I doubt that patient's Eliquis played any role in this GI bleed as patient only took Eliquis for 1 day. However I will discontinue Eliquis. Patient was evaluated by surgery who states that no intervention or colonoscopy will be done and recommends that patient complete treatment for acute diverticulitis after which she should follow-up in the office to schedule a colonoscopy. Hemoglobin seems to be stable since prior visit. Will check hemoglobin tomorrow as well. Vital signs remained stable. (3) Diabetes Is this a current diagnosis for this admission?: Yes Plan: Humalog sliding scale q. before meals. Continue glyburide/metformin. (4) Acute diverticulitis Is this a current diagnosis for this admission?: Yes Plan: Diagnosed on recent visit. Patient noted to have penicillin, sulfa and ciprofloxacin allergy. Continue ertapenem while inpatient. Would recommend continuing Flagyl which was previously prescribed and starting on Cefdinir upon discharge to complete therapy. (5) Atrial fibrillation with RVR Is this a current diagnosis for this admission?: Yes Plan: Currently in sinus rhythm, continue outpatient regiment of Lopressor and discontinue Eliquis. Patient can take aspirin instead and reevaluate once bleeding has resolved. - Time Time Spent with patient: 15-24 minutes
[2019-06-25] MEDS: MEDROXYPROGESTERONE ACET 10 MG TABLET PO SCH ×2 (14:42→22:17)
[2019-06-25] MEDS ORDERED: BENAZEPRIL HCL 20 MG TABLET PO SCH (15:00)
[2019-06-25] MEDS: GLYBURIDE 2.5 MG TABLET PO SCH (17:27)
[2019-06-25] MEDS: METFORMIN HCL 500 MG TABLET PO SCH (17:27)
[2019-06-25] MEDS: METOPROLOL TARTRATE 50 MG TABLET PO SCH (22:17)
[2019-06-26 05:54] LABS: HEMATOCRIT 27.6 % (36.0-47.0); MEAN CORPUSCULAR HEMOGLOBIN 25.7 pg (27.0-33.4); MEAN CORPUSCULAR HGB CONC 32.6 g/dL (32.0-36.0); MEAN CORPUSCULAR VOLUME 79 fl (80-97); PLATELET COUNT 386 10^3/uL (150-450); RED CELL DISTRIBUTION WIDTH 17.2 % (11.5-14.0); WHITE BLOOD COUNT 9.9 10^3/uL (4.0-10.5)
[2019-06-26 06:15] LABS: ABSOLUTE LYMPHOCYTES# (MANUAL) 3.8 10^3/uL (0.5-4.7); ABSOLUTE MONOCYTES # (MANUAL) 0.6 10^3/uL (0.1-1.4); BASOPHILS % (MANUAL) 0 % (0-2); EOSINOPHILS % (MANUAL) 1 % (0-6); LYMPHOCYTES % (MANUAL) 33 % (13-45); MONOCYTES % (MANUAL) 6 % (3-13); SEGMENTED NEUTROPHILS % (MAN) 55 % (42-78); TOTAL CELLS COUNTED 100
[2019-06-26 06:18] LABS: ANISOCYTOSIS 1+; BURR CELLS SLIGHT; OVALOCYTES SLIGHT; PLATELET COMMENT ADEQUATE; POIKILOCYTOSIS 1+; TOXIC GRANULATION 1+
[2019-06-26] MEDS: INSULIN LISPRO 100 UNIT/ML 3 ML VIAL SUBCUT SCH ×2 (07:47→11:33)
[2019-06-26] MEDS ORDERED: ERTAPENEM SODIUM 1 GM in NORMAL SALINE 50 ML IV SCH (08:00)
[2019-06-26] MEDS ORDERED: HYDROCHLOROTHIAZIDE 25 MG TABLET PO SCH (08:00)
[2019-06-26] MEDS: METOPROLOL TARTRATE 50 MG TABLET PO SCH (09:12)
[2019-06-26] MEDS: METFORMIN HCL 500 MG TABLET PO SCH (09:12)
[2019-06-26] MEDS: GLYBURIDE 2.5 MG TABLET PO SCH (09:12)
[2019-06-26] MEDS: LISINOPRIL 10 MG TABLET PO SCH (09:12)
[2019-06-26 12:44] VITALS: BP 142/65
--- NOTE | 2019-06-26 12:44 | PDOC DISCHARGE SUMMARY ---
Impression - Admit/DC Date/PCP Admission Date/Primary Care Provider: 06/24/19 23:17 RC RIOS MD Discharge Date: 06/26/19 - Discharge Diagnosis (1) GI bleed Is this a current diagnosis for this admission?: Yes (2) Vaginal bleeding Is this a current diagnosis for this admission?: Yes (3) Acute diverticulitis Is this a current diagnosis for this admission?: Yes (4) Atrial fibrillation with RVR Is this a current diagnosis for this admission?: Yes (5) Diverticulitis large intestine Is this a current diagnosis for this admission?: Yes (6) UTI (urinary tract infection) Is this a current diagnosis for this admission?: Yes - Additional Information Resuscitation Status: Full Code Discharge Diet: Diabetic Discharge Activity: Activity As Tolerated Referrals: RC RIOS MD [Primary Care Provider] - Follow up as needed WALDO ADAMS MD [ACTIVE STAFF] - Prescriptions: Metronidazole [Flagyl 500 mg Tablet] 500 mg PO Q6H #20 tablet Home Medications: Aspirin [Ecotrin 81 mg EC Tablet] 81 mg PO QAM 05/15/15 Glyburide [Diabeta] 5 mg PO BID 05/15/15 Hydrochlorothiazide 25 mg PO QAM 05/15/15 Metformin HCl [Glucophage 500 mg Tablet] 1,000 mg PO BID 06/20/19 Cephalexin Monohydrate [Keflex 500 mg Capsule] 500 mg PO TID 8 Days capsule 06/22/19 Lisinopril 20 mg PO Q12 #60 06/22/19 Metoprolol Tartrate [Lopressor 50 mg Tablet] 50 mg PO Q12 #60 tablet 06/22/19 Benazepril HCl [Lotensin] 40 mg PO DAILY 06/25/19 Rosuvastatin Calcium 5 mg PO DAILY 06/25/19 Metronidazole [Flagyl 500 mg Tablet] 500 mg PO Q6H #20 tablet 06/26/19 History of Present Illiness History of Present Illness: ED FIGUEROA is a 69 year old female Patient presents emergency room with complaints of vaginal and rectal bleeding. She was found to have a macrocytic anemia and pyuria. She was recently started on Eliquis for atrial fibrillation. Please see admitting history and physical for full details. Also notes the consultation report from gynecology. Hospital Course Hospital Course: Patient was recently started on Eliquis for atrial fibrillation and was felt that this exacerbated her chronic vaginal bleeding. She was seen by [facility]. She received Provera 20 mg 2times in the hospital plan is for her to follow-up with Dr. Adams on at 1:30 PM. Patient was also been recently treated for acute diverticulitis. She is to follow-up with physician as outpatient for further management and possible colonoscopy if indicated. She was also noted to have a UTI. There was no cultures available. Patient is on Keflex and Flagyl was added to her regimen for diverticulitis. She received no blood transfusion as her hemoglobin was relatively stable. At this time with patient being hemodynamically stable she has been discharged home for outpatient follow-up Eliquis has been discontinued due to the risk of bleeding. She is to follow-up with her appetizer packer as outpatient for evaluation and risk stratification. Physical Exam Vital Signs: Temp Pulse Resp BP Pulse Ox 98.5 F 64 17 168/75 H 98 06/26/19 07:36 06/26/19 07:36 06/26/19 07:36 06/26/19 07:36 06/26/19 07:36 Intake & Output 06/25/19 06/26/19 06/27/19 06:59 06:59 06:59 Intake Total 1315 1340 50 Balance 1315 1340 50 Weight 128.5 kg 122 kg General appearance: PRESENT: no acute distress, well-developed, well-nourished Head exam: PRESENT: atraumatic, normocephalic Eye exam: PRESENT: conjunctiva pink, EOMI, PERRLA. ABSENT: scleral icterus Ear exam: PRESENT: normal external ear exam Mouth exam: PRESENT: moist, tongue midline Neck exam: ABSENT: carotid bruit, JVD, lymphadenopathy, thyromegaly Respiratory exam: PRESENT: clear to auscultation keren. ABSENT: rales, rhonchi, wheezes Cardiovascular exam: PRESENT: RRR, +S1, +S2. ABSENT: diastolic murmur, rubs, systolic murmur Pulses: PRESENT: normal dorsalis pedis pul Vascular exam: PRESENT: normal capillary refill GI/Abdominal exam: PRESENT: normal bowel sounds, soft. ABSENT: distended, guarding, mass, organolmegaly, rebound, tenderness Rectal exam: PRESENT: deferred Extremities exam: PRESENT: full ROM. ABSENT: calf tenderness, clubbing, pedal edema Neurological exam: PRESENT: alert, awake, oriented to person, oriented to place, oriented to time, oriented to situation, CN II-XII grossly intact. ABSENT: motor sensory deficit Psychiatric exam: PRESENT: appropriate affect, normal mood. ABSENT: homicidal ideation, suicidal ideation Skin exam: PRESENT: dry, intact, warm. ABSENT: cyanosis, rash Results Laboratory Results: WBC 9.9 10^3/uL (4.0-10.5) 06/26/19 04:59 RBC 3.50 10^6/uL (3.72-5.28) L 06/26/19 04:59 Hgb 9.0 g/dL (12.0-15.5) L 06/26/19 04:59 Hct 27.6 % (36.0-47.0) L 06/26/19 04:59 MCV 79 fl (80-97) L 06/26/19 04:59 MCH 25.7 pg (27.0-33.4) L 06/26/19 04:59 MCHC 32.6 g/dL (32.0-36.0) 06/26/19 04:59 RDW 17.2 % (11.5-14.0) H 06/26/19 04:59 Plt Count 386 10^3/uL (150-450) 06/26/19 04:59 Lymph % (Auto) Not Reportable 06/26/19 04:59 [place] % (Auto) Not Reportable 06/26/19 04:59 Eos % (Auto) Not Reportable 06/26/19 04:59 Baso % (Auto) Not Reportable 06/26/19 04:59 Reticulocyte # 0.048 10^6/uL (0.028-0.122) 06/24/19 20:37 Absolute Neuts (auto) Not Reportable 06/26/19 04:59 Absolute Lymphs (auto) Not Reportable 06/26/19 04:59 Absolute Monos (auto) Not Reportable 06/26/19 04:59 Absolute Eos (auto) Not Reportable 06/26/19 04:59 Absolute Basos (auto) Not Reportable 06/26/19 04:59 Total Counted 100 06/26/19 04:59 Seg Neutrophils % Not Reportable 06/26/19 04:59 Seg Neuts % (Manual) 55 % (42-78) 06/26/19 04:59 Lymphocytes % (Manual) 33 % (13-45) 06/26/19 04:59 Atypical Lymphs % 5 % (0) 06/26/19 04:59 Monocytes % (Manual) 6 % (3-13) 06/26/19 04:59 Eosinophils % (Manual) 1 % (0-6) 06/26/19 04:59 Basophils % (Manual) 0 % (0-2) 06/26/19 04:59 Abs Neuts (Manual) 5.4 10^3/uL (1.7-8.2) 06/26/19 04:59 Abs Lymphs (Manual) 3.8 10^3/uL (0.5-4.7) 06/26/19 04:59 Abs Monocytes (Manual) 0.6 10^3/uL (0.1-1.4) 06/26/19 04:59 Absolute Eos (Manual) 0.1 10^3/uL (0.0-0.6) 06/26/19 04:59 Abs Basophils (Manual) 0.0 10^3/uL (0.0-0.2) 06/26/19 04:59 Toxic Granulation 1+ 06/26/19 04:59 Platelet Comment ADEQUATE 06/26/19 04:59 Poikilocytosis 1+ 06/26/19 04:59 Anisocytosis 1+ 06/26/19 04:59 Ovalocytes SLIGHT 06/26/19 04:59 [place] Cells SLIGHT 06/26/19 04:59 Retic Count (auto) 1.21 % (0.66-2.85) 06/24/19 20:37 PT 14.0 SEC (11.4-15.4) 06/24/19 20:37 INR 1.07 06/24/19 20:37 APTT 29.8 SEC (23.5-35.8) 06/24/19 20:37 Sodium 136.0 mmol/L (137-145) L 06/25/19 04:49 Potassium 4.6 mmol/L (3.6-5.0) 06/25/19 04:49 Chloride 103 mmol/L (98-107) 06/25/19 04:49 Carbon Dioxide 23 mmol/L (22-30) 06/25/19 04:49 Anion Gap 10 (5-19) 06/25/19 04:49 BUN 15 mg/dL (7-20) 06/25/19 04:49 Creatinine 0.75 mg/dL (0.52-1.25) 06/25/19 04:49 Est GFR ( Amer) > 60 (>60) 06/25/19 04:49 Est GFR (MDRD) Non-Af > 60 (>60) 06/25/19 04:49 Glucose 189 mg/dL (75-110) H 06/25/19 04:49 POC Glucose 155 mg/dL (70-110) H 06/26/19 11:06 Calcium 9.2 mg/dL (8.4-10.2) 06/25/19 04:49 Iron 42.4 ug/dL (37-170) 06/24/19 20:37 TIBC 312 ug/dL (250-450) 06/24/19 20:37 % Saturation 14 % 06/24/19 20:37 Transferrin 236.87 mg/dL (206.00-381.00) 06/24/19 20:37 Ferritin 46.00 ng/mL (11.1-264.0) 06/24/19 20:37 Total Bilirubin 0.3 mg/dL (0.2-1.3) 06/24/19 20:37 Direct Bilirubin 0.0 mg/dL (0.0-0.4) 06/24/19 20:37 Neonat Total Bilirubin Not Reportable 06/24/19 20:37 Neonat Direct Bilirubin Not Reportable 06/24/19 20:37 Neonat Indirect Bili Not Reportable 06/24/19 20:37 AST 23 U/L (14-36) 06/24/19 20:37 ALT 19 U/L (<35) 06/24/19 20:37 Alkaline Phosphatase 82 U/L (38-126) 06/24/19 20:37 Total Protein 7.7 g/dL (6.3-8.2) 06/24/19 20:37 Albumin 3.9 g/dL (3.5-5.0) 06/24/19 20:37 Vitamin B12 806.0 pg/mL (239-931) 06/24/19 20:37 Folate 19.60 ng/mL (>2.76) 06/24/19 20:37 Urine Color ROXANN 06/25/19 03:00 Urine Appearance CLOUDY 06/25/19 03:00 Urine pH 6.0 (5.0-9.0) 06/25/19 03:00 Ur Specific [place] 1.018 06/25/19 03:00 Urine Protein 30 mg/dL (NEGATIVE) H 06/25/19 03:00 Urine Glucose (UA) NEGATIVE mg/dL (NEGATIVE) 06/25/19 03:00 Urine Ketones NEGATIVE mg/dL (NEGATIVE) 06/25/19 03:00 Urine Blood LARGE (NEGATIVE) H 06/25/19 03:00 Urine Nitrite NEGATIVE (NEGATIVE) 06/25/19 03:00 Urine Bilirubin NEGATIVE (NEGATIVE) 06/25/19 03:00 Urine Urobilinogen NEGATIVE mg/dL (<2.0) 06/25/19 03:00 Ur Leukocyte Esterase LARGE (NEGATIVE) H 06/25/19 03:00 Urine WBC (Auto) >182 /HPF 06/25/19 03:00 Urine RBC (Auto) >182 /HPF 06/25/19 03:00 U Hyaline Cast (Auto) 5 /LPF 06/25/19 03:00 Urine WBC Clumps FEW /HPF 06/25/19 03:00 Squamous Epi Cells Auto 4 /HPF 06/25/19 03:00 Urine Mucus (Auto) RARE /LPF 06/25/19 03:00 Urine Ascorbic Acid NEGATIVE (NEGATIVE) 06/25/19 03:00 POC Stool Occult Blood POSITIVE (NEGATIVE) 06/24/19 22:04 Blood Type O NEGATIVE 06/24/19 20:37 Antibody Screen NEGATIVE 06/24/19 20:37 EKG Comments: Sinus rhythm Plan Health Concerns: Follow-up with her livestock inspector June 26 Time Spent: Less than 30 Minutes Stroke Is this a Stroke Patient?: No Acute Heart Failure - Is this a Heart Failure Patient?: No
[2019-06-26] MEDS ORDERED: GLYBURIDE 5 MG TABLET PO SCH (17:00)
== END 2019-06-26 13:48 | disposition home or self-care (01) | DRG 378 ==
LOC: ER 19:45 → EH 23:17 → 4N 06-25 01:18
PROVIDERS: ADMIT Internal Medicine; ATTEND Internal Medicine
DX: K62.5 Hemorrhage of anus and rectum (principal); K57.92 Diverticulitis of intestine, part unspecified, without perforation or abscess without bleeding; N39.0 Urinary tract infection, site not specified; N93.8 Other specified abnormal uterine and vaginal bleeding; T45.525A Adverse effect of antithrombotic drugs, initial encounter; Y92.018 Other place in single-family (private) house as the place of occurrence of the external cause; I48.91 Unspecified atrial fibrillation; E11.9 Type 2 diabetes mellitus without complications; I10 Essential (primary) hypertension; E66.01 Morbid (severe) obesity due to excess calories; Z79.01 Long term (current) use of anticoagulants; Z79.84 Long term (current) use of oral hypoglycemic drugs; Z79.82 Long term (current) use of aspirin; Z79.899 Other long term (current) drug therapy
CPT/HCPCS: 36415; 76830; 80048; 80053; 81001; 82270; 82607; 82728; 82746; 82962; 83540; 83550; 84466; 85025; 85045; 85610; 85730; 86850; 86900; 86901; 99284; 99285; J0360; J1335; J1756; J3490; J7030; J7050

== ENCOUNTER 2019-07-09 23:59 | Emergency (ER) | payer MEDICARE, BC ==
[2019-07-10 00:38] VITALS: BP 204/91
== END 2019-07-10 01:05 | disposition left against medical advice (07) ==
LOC: ER 23:59
DX: Z53.21 Procedure and treatment not carried out due to patient leaving prior to being seen by health care provider (principal)

== ENCOUNTER → 2019-12-18 | Outpatient (CLI) | payer MEDICARE, BC ==
--- NOTE | 2019-12-18 12:57 | WOMENS IMAGING REPORT ---
EXAM DESCRIPTION: 3D SCREENING MAMMO BILAT IMAGES COMPLETED DATE/TIME: 12/18/2019 8:48 am REASON FOR STUDY: Z12.31 ENCOUNTER FOR SCREENING MAMMOGRAM FOR MALIGNANT NEOPLASM OF BREAST Z12.31 ENCNTR SCREEN MAMMOGRAM FOR MALIGNANT NEOPLASM OF [place] COMPARISON: 07/24/2018 and 06/24/2017. EXAM PARAMETERS: Views: Standard craniocaudal and mediolateral oblique views of each breast recorded using digital acquisition and breast tomosynthesis. Read with the assistance of CAD. .FORM[facility]LY [facility] - R2 Box Spinner Version 9.2 LIMITATIONS: None. FINDINGS: No suspicious masses, suspicious calcifications or architectural distortion. No areas of c oncern. IMPRESSION: NEGATIVE MAMMOGRAM. BIRADS 1. BREAST DENSITY: b. There are scattered areas of fibroglandular density. BIRAD: ASSESSMENT: 1 NEGATIVE RECOMMENDATION: ROUTINE SCREENING COMMENT: The patient has been notified of the results by letter per MQSA requirements. Additional no tification policies are in place for contacting patient with suspicious or incomplete findings. Quality ID #[id number]: The [employer] recommends an annual screening mammogram for women aged 40 years or over. This facility utilizes a reminder system to ensure that all patients receive reminder letters, and/or direct phone calls for appointments. This includes reminders for routine scr eening mammograms, diagnostic mammograms, or other Breast Imaging Interventions when appropriate. Th is patient will be placed in the appropriate reminder system. TECHNICAL DOCUMENTATION: FINDING NUMBER: (1) ASSESSMENT: (1) JOB ID: [id number] 2010 [employer]- All Rights Reserved Reading location - IP/workstation name: [email or web address]
== END ==
LOC: WI 08:08
PROVIDERS: ATTEND Internal Medicine
DX: Z12.31 Encounter for screening mammogram for malignant neoplasm of breast (principal)
CPT/HCPCS: 77063; 77067